=== PATIENT | male | born 1955 | race Caucasian/White ===

== ENCOUNTER 2023-03-21 09:33 | Outpatient (REF) | payer OTHER, SELFPAY ==
[2023-03-21 11:25] LABS: MANUAL DIFF FLAG NO
[2023-03-21 11:45] LABS: Basophils Absolute Auto 0.1 X10*3/uL (0.0-0.2); Basophils Percent Auto 0.7 % (0-2); Eosinophils Absolute Auto 0.4 X10*3/uL (0.0-0.4); Hematocrit 40.7 % (42.0-52.0); Hemoglobin 13.1 g/dl (14.0-18.0); Imm Gran Abs Auto 0.04 X10*3/uL (0.00-0.03); Imm Gran Pct Auto 0.4 % (0.0-0.4); Lymphocytes Absolute Auto 1.9 X10*3/uL (1.2-4.9); Lymphocytes Percent Auto 21.3 % (20-40); Mean Corpuscular HGB Conc 32.2 g/dl (31.0-36.0); Mean Corpuscular Hemoglobin 31.5 pg (27.0-33.0); Mean Corpuscular Volume 97.8 fL (80.0-98.0); Mean Platelet Volume 9.9 fL (9.4-12.4); Monocytes Absolute Auto 0.8 X10*3/uL (0.1-1.2); Monocytes Percent Auto 9.2 % (2-11); Neutrophils Absolute Auto 5.8 x10*3/uL (2.0-8.3); Neutrophils Percent Auto 64.4 % (45-73); Platelet Count 198 X10*3/uL (160-400); Red Blood Count 4.16 X10*6/uL (4.60-5.80); Red Cell Distribution Width 13.6 % (11.0-16.0)
[2023-03-21 12:10] LABS: Alanine Aminotransferase 18 U/L (0-40); Alkaline Phosphatase 87 U/L (39-117); Aspartate Amino Transferase 21 U/L (5-37); Bilirubin Total 0.7 mg/dL (0.0-1.0); Blood Urea Nitrogen 36 mg/dL (9-16); Calcium 9.5 mg/dL (8.4-10.2); Chloride 105 mmol/L (96-108); Cholesterol 144 mg/dL; Estimated Glomerular Filt Rate 24; Glucose Fasting 93 mg/dL (60-99); HDL Cholesterol 26 mg/dL; LDL Cholesterol Calculated 61 mg/dl; Potassium 4.2 mmol/L (3.3-5.1); Sodium 138 mmol/L (135-145); Total Protein 7.1 g/dL (6.5-8.0); Triglycerides 288 mg/dL
[2023-03-21 12:21] LABS: TSH reflex Free T4 1.76 uIU/mL (0.32-4.0)
[2023-03-21 12:23] LABS: Appearance Urine Clear; Color Urine Yellow; Glucose Urine UA Negative (Negative); Leukocyte Esterase Urine Negative (Negative); Nitrite Urine Negative (Negative); PH 5.5 (5.0-9.0); UMIC TRIGGER UACC YES; Urine Blood Negative (Negative); Urine Ketones Negative (Negative); Urine Protein 100 (2+) mg/dL (Neg-Trace)
[2023-03-21 12:26] LABS: Bacteria Urine None Seen (None Seen); Hyaline Casts Urine 0-2 /LPF (0-2); RBC Urine 0-2 /HPF (0-2); Squamous Epithelial Cell Urine 0-2 /HPF (0-2); WBC Urine 0-5 /HPF (0-5)
[2023-03-21 13:00] LABS: Creatinine Urine 29.82 mg/dL; Microalbum/Creatinine Ratio Ur 1579.4 ug/mg cr
[2023-03-21 19:21] LABS: Carbon Dioxide 19 mmol/L (22-29)
[2023-03-28 17:38] LABS: PSA, Ultra Sensitive 0.45 ng/mL
== END 2023-03-21 09:34 | disposition home or self-care (01) ==
LOC: HO.WFDLDS 09:33
PROVIDERS: Visit Provider Nurse Practitioner Family
DX: Z12.5 Encounter for screening for malignant neoplasm of prostate (principal); C43.9 Malignant melanoma of skin, unspecified; I12.9 Hypertensive chronic kidney disease with stage 1 through stage 4 chronic kidney disease, or unspecified chronic kidney disease; E11.22 Type 2 diabetes mellitus with diabetic chronic kidney disease; N18.4 Chronic kidney disease, stage 4 (severe); E11.40 Type 2 diabetes mellitus with diabetic neuropathy, unspecified; E78.00 Pure hypercholesterolemia, unspecified; G89.29 Other chronic pain; K46.9 Unspecified abdominal hernia without obstruction or gangrene; M54.50 Low back pain, unspecified
CPT/HCPCS: 36415; 80053; 80061; 81001; 82043; 84153; 84443; 85025

== ENCOUNTER 2023-03-27 14:28 | Outpatient (AMB) | payer OTHER, SELFPAY ==
[2023-03-27 14:38] VITALS: BP 144/76; PULSE 72; RESP 12; TEMP 36.6; O2SAT 98; BMI 34.9
--- NOTE | 2023-03-27 14:38 | A.OFFPC_ITS ---
Vital Signs 03/27/23 14:38 03/27/23 15:26 Height 6 ft 2 in Weight 272 lb BMI 34.9 BP 144/76 H 140/70 H Blood Pressure Location Lt brachial Lt brachial Position Sitting Sitting Respiration 12 Pulse 72 Pulse Source Pulse Oximeter Temp 97.8 F Temp Source Temporal Artery Scan Pulse Oximetry (%) 98 Oxygen Delivery Method Room Air Intake Visit Reasons: 1 mos chronic conditions Intake Note: Patient woul like to go over labs. 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: No Was dental information given to patient?: Patient has dentist HPI HPI Comments History of Present Illness Details 68 y/o male presents for chronic medical condition follow up. He notes that he has been taking his medications as prescribed. He reports chronic low back and bilat foot pain. He also reports an abrasion to his left zaman from inadvertently striking the area on a rail 3 days ago. He notes that he that he was seen by Cardiology 2 weeks ago and has appointments scheduled for next month with nephrology, ophthalmology, and ophthalmology. He has not been contacted by endocrinology. [facility] Medical History Arthritis Back disorder Chronic kidney disease, stage 3 Congestive heart disease Diabetes Edema Hernia High blood pressure High cholesterol Melanoma Sinusitis Surgical History H/O heart bypass surgery H/O vasectomy History of ankle surgery History of back surgery Hx of appendectomy Family History Father High blood pressure Cardiovascular disease Paternal Grandfather Cardiovascular disease Social History Housing: Apartment Patient Tobacco Use Status: Never used Tobacco e-Cigarette/Vaping Use: Never Used service: No Current occupational status: retired Cognitive needs: No Hearing needs: No Vision needs: Yes Questionnaire Thrive Questionnaire Date Thrive assessed: 02/21/23 MENDOZA-7 AMB Questionnaire MENDOZA-7 Date MENDOZA - 7 assessed: 02/21/23 Source: Developed by Drs. Francisco J Berkowitz, Jeniffer Chen, Bryan Sofia and colleagues, with an educational dayo from [employer]. Review of Systems Const Details: Const Denies chills, Denies fatigue, Denies fever(s), Denies headache(s) and Denies weakness ENT Denies dizziness and Denies headache(s) Card Denies chest pain, Denies lightheadedness, Denies dyspnea and Denies other (Palpitations) Resp Denies cough, Denies dyspnea, Denies wheezing and Denies other ( shortness of breath) GI Denies abdominal pain, Denies melena, Denies hematochezia, Denies change in bowel habits, Denies dyspepsia and Denies nausea Denies hematuria and Denies dysuria Musc Reports back and bilat foot pain, Denies abnormal gait, Denies numbness and Denies tingling Skin/Breast Reports abrasion to left zaman, Denies rash, Denies unusual bruising Neuro Denies abnormal gait, Denies dizziness, Denies headache(s), Denies memory loss, Denies numbness, Denies Sensory deficit (Neuro), Denies tingling and Denies weakness Psych Denies anxiety and Denies depression Endo Denies fatigue Aller/Immun Denies wheezing Physical exam (Primary Care) Vital Signs: Last Vital Signs Temp 97.8 F 03/27/23 14:38 Pulse 72 03/27/23 14:38 Resp 12 03/27/23 14:38 BP 140/70 H 03/27/23 15:26 Pulse Ox 98 03/27/23 14:38 Oxygen Delivery Method Room Air 03/27/23 14:38 BMI result Body Mass Index 34.9 Tobacco/Smoking Status: Tobacco use Status Tobacco use date assessed 02/21/23 03/27/23 14:49 Patient Tobacco Use Status Never used Tobacco 03/27/23 14:49 Tobacco use type 03/27/23 14:49 e-Cigarette/Vaping Use Never Used 03/27/23 14:49 Thrive Assessment: Date of Thrive Assessment Date Thrive assessed 02/21/23 03/27/23 14:49 Const Other: General: no acute distress and well developed Nutritional Appearance: well nourished Orientation/consciousness: patient oriented x3 HENAR Head: Yes normocephalic and Yes atraumatic Eyes General: appearance normal, both eyes and all related structures Pupils: Equal, round and reactive pupils present EOM: EOMs intact bilaterally Resp Effort & Inspection: normal respiratory effort Auscultation: clear to auscultation bilaterally Cardio Rate: regular rate Rhythm: regular rhythm Heart sounds: S1 normal heart sound present, S2 normal heart sound present, no gallops, murmurs presents, and no rubs GI Palpation (GI): No Abdominal aortic bruit present, Soft to palpation, nontender, No hepatosplenomegaly present and No Rebound tenderness present Auscultation: normal bowel sounds General: Yes no CVA tenderness Back/Spine/Pelvis Back: no CVA tenderness Cervical Spine: cervical ROM normal and No Cervical spine tenderness Thoracic/Lumbar Spine: thoraco-lumbar ROM normal, No pain with thoraco-lumbar ROM, No thoracic spinal tenderness and No lumbar spinal tenderness Extrem General: Yes normal to inspection, No edema and No calf tenderness Skin General: warm and dry. Normal skin color. Normal skin turgor Lesions: no lesions Rashes: no rashes Trauma: no lacerations or abrasions Wounds: Small abrasion to left zaman, bed is pink, no edema or overt infection Nails: normal Neuro General: patient oriented x3, gait normal and no focal neuro deficit Cranial nerves: Yes Equal, round and reactive pupils present Cognition (Neuro): normal cognition Gait exam (Neuro): Normal gait present Sensory Exam: No Sensory deficit (Neuro) Psych Affect: normal affect Assessment and Plan Assessment & Plan (1) High blood pressure: Code(s): I10 - Essential (primary) hypertension Plan: His blood pressure is elevated, resting blood pressure is 140/70, slightly above goal of less than 130/80 Carvedilol increased to 25 mg twice a day. Take as prescribed Continue to take clonidine, hydralazine, and torsemide as prescribed Low-sodium diet encouraged Continue follow-up with cardiology as planned Follow-up in 1 month or return sooner with symptoms or concerns Verbalized understanding and agreed with treatment plan. (2) High cholesterol: Code(s): E78.00 - Pure hypercholesterolemia, unspecified Plan: Recent lab results reviewed with the patient Triglycerides and total cholesterol are elevated, LDL is normal, HDL is low Rosuvastatin and Vascepa as prescribed Advised to limits foods high in saturated fat and avoid foods high in trans fat Continue follow-up with Cardiology as planned He has a current referral to endocrinology Verbalized understanding and agreed with treatment plan. (3) Type 2 diabetes mellitus with diabetic neuropathy: Code(s): E11.40 - Type 2 diabetes mellitus with diabetic neuropathy, unspecified Plan: His current A1c is 6.6%, within goal of less than 7.0% Microalbumin/creatinine ratio is 1579.4 Continue with current diabetes treatment regimen He has a current for all to endocrinology Follow-up with symptoms or concerns Verbalized understanding and agreed with treatment plan. (4) Chronic low back pain: Code(s): M54.50 - Low back pain, unspecified; G89.29 - Other chronic pain Plan: He reports chronic low back and bilat foot pain Continue with current treatment regimen Follow-up with worsening or new symptoms Verbalized understanding and agreed with treatment plan. (5) Bilateral foot pain: Code(s): M79.671 - Pain in right foot; M79.672 - Pain in left foot Plan: As above (6) Stage 3b chronic kidney disease (CKD): Code(s): N18.32 - Chronic kidney disease, stage 3b Plan: Recent lab results reviewed with the patient Elevated BUN and creatinine Microalbumin/creatinine ratio is also elevated He has an appointment with Nephrology next month. Encouraged to follow-up as planned Return with symptoms or concerns Verbalized understanding and agreed with the plan. Medications: New carvedilol must administer with a meal/food 25 mg PO BID 30 days 60 tabs 3RF Coding Level of Care Code Est Pt Level 4 (56164) Diagnoses High blood pressure I10 High cholesterol E78.00 Type 2 diabetes mellitus with diabetic neuropathy E11.40 Chronic low back pain M54.50; G89.29 Bilateral foot pain M79.671; M79.672 Stage 3b chronic kidney disease (CKD) N18.32 Time Spent (min) 35
[2023-03-27 15:26] VITALS: BP 140/70
== END 2023-03-27 15:42 | disposition home or self-care (01) ==
PROVIDERS: PCP Nurse Practitioner Family; Visit Provider Nurse Practitioner Family
DX: I12.9 Hypertensive chronic kidney disease with stage 1 through stage 4 chronic kidney disease, or unspecified chronic kidney disease (principal); E11.40 Type 2 diabetes mellitus with diabetic neuropathy, unspecified; N18.32 Chronic kidney disease, stage 3b; E78.00 Pure hypercholesterolemia, unspecified; M54.50 Low back pain, unspecified; G89.29 Other chronic pain; M79.671 Pain in right foot; M79.672 Pain in left foot
CPT/HCPCS: 99214

== ENCOUNTER 2023-05-31 08:43 | Outpatient (REF) | payer OTHER, SELFPAY ==
[2023-05-31 11:49] LABS: Appearance Urine Clear; Color Urine Yellow; Glucose Urine UA Negative (Negative); Leukocyte Esterase Urine Negative (Negative); Nitrite Urine Negative (Negative); UMIC TRIGGER UACC YES; Urine Blood Negative (Negative); Urine Ketones Negative (Negative); Urine Protein 100 (2+) mg/dL (Neg-Trace)
[2023-05-31 11:50] LABS: Bacteria Urine None Seen (None Seen); Hyaline Casts Urine 0-2 /LPF (0-2); RBC Urine 0-2 /HPF (0-2); Squamous Epithelial Cell Urine 0-2 /HPF (0-2); WBC Urine 0-5 /HPF (0-5)
[2023-05-31 12:24] LABS: Creatinine Urine 28.28 mg/dL; Total Protein Urine Random 48 mg/dL (<12)
[2023-05-31 15:01] LABS: Anion Gap 18 (12-20); Blood Urea Nitrogen 68 mg/dL (9-16); Calcium 9.1 mg/dL (8.4-10.2); Carbon Dioxide 23 mmol/L (22-29); Chloride 104 mmol/L (96-108); Estimated Glomerular Filt Rate 19; Potassium 4.9 mmol/L (3.3-5.1); Sodium 140 mmol/L (135-145)
[2023-05-31 15:15] LABS: Vitamin D 25-OH Total 25.5 ng/mL (>30)
[2023-06-01 16:58] LABS: Calcium (PTHI) 8.9 mg/dL (8.6-10.3); PTHI 139 pg/mL (16-77)
[2023-06-04 12:14] LABS: Prot Elec - Albumin 4.2 g/dL (3.8-4.8); Prot Elec - Alpha1 0.3 g/dL (0.2-0.3); Prot Elec - Alpha2 0.8 g/dL (0.5-0.9); Prot Elec - Beta 1 0.4 g/dL (0.4-0.6); Prot Elec - Beta 2 0.3 g/dL (0.2-0.5)
== END 2023-05-31 08:44 | disposition home or self-care (01) ==
LOC: HO.LNP 08:43
PROVIDERS: Internal Medicine Nephrology; Visit Provider Nurse Practitioner Family
DX: Z13.89 Encounter for screening for other disorder (principal)
CPT/HCPCS: 36415; 80051; 81001; 82306; 82310; 82565; 82570; 83970; 84156; 84165; 84520

== ENCOUNTER 2023-06-08 14:05 | Outpatient (AMB) | payer OTHER, SELFPAY ==
[2023-06-08 14:20] VITALS: BP 130/60; PULSE 77; RESP 13; TEMP 36.4; O2SAT 99; BMI 35.2
--- NOTE | 2023-06-08 14:20 | MHC.PC.OV ---
Vital Signs 06/08/23 14:20 Height 6 ft 2 in Weight 274 lb BMI 35.2 BP 130/60 Blood Pressure Location Rt brachial Position Sitting Respiration 13 Pulse 77 Pulse Source Pulse Oximeter Temp 97.6 F Temp Source Temporal Artery Scan Pulse Oximetry (%) 99 Oxygen Delivery Method Room Air Intake Visit Reasons: f/u HTN Intake Note: Patient states that hes been feeling real tired. Patient states that hes allso been losing his balance more frequently. Commercial Attache Required: No Accompanied by: Self / Same As Patient Allergies Sulfa (Sulfonamide Antibiotics) Allergy (Intermediate, Verified 06/08/23 14:44) Swelling Latex, Natural Rubber Allergy (Mild, Verified 06/08/23 14:44) Redness of Skin grapefruit Adverse Reaction (Unknown, Uncoded 06/08/23 14:44) Unknown Medication List - Last Reconciled 06/08/23 by Tramaine Calzada CNP aspirin (Adult Low Dose Aspirin) 81 mg PO DAILY carvedilol 25 mg PO BID 30 days clonidine HCl 0.05 mg PO BID gabapentin 300 mg PO TID PRN hydralazine 100 mg PO TID icosapent ethyl (Vascepa) 2 grams PO BID insulin glargine (Lantus Solostar U-100 Insulin) 45 units subcut BID insulin lispro 1 sliding scale dose subcut USEASDIRECTD prednisone 20 mg PO DAILY PRN ranolazine ER 500 mg PO BID 30 days rosuvastatin (Crestor) 40 mg PO DAILY 30 days torsemide 20 mg PO DAILY 30 days Tobacco use date assessed: 02/21/23 Fall risk assessment: 2 + Falls in past year Last assessed Fall Risk: 06/08/23 Dental Screening Dental Screen Date: 06/08/23 Did you have a dental visit in the last 12 months?: Yes Did you have a dental problem in the last 6 months where you did not have access to dental care?: No Was dental information given to patient?: Patient has dentist HPI HPI Comments History of Present Illness Details 68-year-old male presents for hypertension follow-up. He was last seen at the office on 03/27/2023. He was advised to follow-up in 1 month. He states that he monitor his BP at home twice daily with readings between 125-130/60-70. He reports increasing fatigue for the past 2 weeks. He reports intermittent twitching and cramps to his RLE for the past 2 weeks. He notes that he has history of LLE twitching and cramping that responded well to cyclobenzaprine. He notes that he established with Cardiology in April. He also established with Dermatology in April and, no diagnosis of skin cancer, and has a follow-up appointment in 6 months. He has an appointment to establish with Ophthalmology in October 2023. He was referred to [facility] specialist, however, he states he does not recall the practice of the specialists he currently sees. He states that he has not established with Podiatry. [facility] endocrinology could not admit the patient because his A1c was below 8.6%. [facility] Medical History Chronic kidney disease, stage 3 Edema Back disorder Arthritis Diabetes Congestive heart disease High cholesterol High blood pressure Sinusitis Melanoma Hernia Surgical History History of ankle surgery H/O vasectomy History of back surgery Hx of appendectomy H/O heart bypass surgery Family History (Updated 06/08/23 @ 14:28 by Radha Gonsalves MA) Father High blood pressure Cardiovascular disease Paternal Grandfather Cardiovascular disease Social History Housing: Apartment Patient Tobacco Use Status: Never used Tobacco e-Cigarette/Vaping Use: Never Used service: No Current occupational status: retired Cognitive needs: No Hearing needs: No Vision needs: Yes Questionnaire Thrive Questionnaire Date Thrive assessed: 02/21/23 MENDOZA-7 AMB Questionnaire MENDOZA-7 Date MENDOZA - 7 assessed: 02/21/23 Source: Developed by Drs. Francisco J Berkowitz, Jeniffer Chen, Bryan Sofia and colleagues, with an educational dayo from [employer]. Review of Systems Const Details: Const Denies chills, Reports fatigue, Denies fever(s), Denies headache(s) and Denies weakness ENT Denies dizziness and Denies headache(s) Card Denies chest pain, Denies lightheadedness, Denies dyspnea and Denies other (Palpitations) Resp Denies cough, Denies dyspnea, Denies wheezing and Denies other ( shortness of breath) GI Denies abdominal pain, Denies melena, Denies hematochezia, Denies change in bowel habits, Denies dyspepsia and Denies nausea Denies hematuria and Denies dysuria Musc Denies abnormal gait, Denies myalgias, Denies arthralgias, Denies numbness and Denies tingling Skin/Breast Denies rash, Denies unusual bruising and Denies wounds Neuro Denies abnormal gait, Denies dizziness, Denies headache(s), Denies memory loss, Denies numbness, Denies Sensory deficit (Neuro), Denies tingling and Denies weakness Psych Denies anxiety, Denies depression, Denies memory loss Endo Denies cold intolerance, Reports fatigue, Denies heat intolerance, Denies polydipsia and Denies polyuria Aller/Immun Denies wheezing Physical exam (Primary Care) Vital Signs: Last Vital Signs Temp 97.6 F 06/08/23 14:20 Pulse 77 06/08/23 14:20 Resp 13 06/08/23 14:20 BP 130/60 06/08/23 14:20 Pulse Ox 99 06/08/23 14:20 Oxygen Delivery Method Room Air 06/08/23 14:20 BMI result Body Mass Index 35.2 Tobacco/Smoking Status: Tobacco use Status Tobacco use date assessed 02/21/23 06/08/23 14:28 Patient Tobacco Use Status Never used Tobacco 06/08/23 14:28 Tobacco use type 03/27/23 15:41 e-Cigarette/Vaping Use Never Used 06/08/23 14:28 Thrive Assessment: Date of Thrive Assessment Date Thrive assessed 02/21/23 06/08/23 14:28 Const Other: General: no acute distress and well developed Nutritional Appearance: well nourished Orientation/consciousness: patient oriented x3 HENMT Head: Yes normocephalic and Yes atraumatic Eyes General: appearance normal, both eyes and all related structures Pupils: Equal, round and reactive pupils present EOM: EOMs intact bilaterally Resp Effort & Inspection: normal respiratory effort Auscultation: clear to auscultation bilaterally Cardio Rate: regular rate Rhythm: regular rhythm Heart sounds: S1 normal heart sound present, S2 normal heart sound present, no gallops, murmurs and no rubs GI Palpation (GI): No Abdominal aortic bruit present, Soft to palpation, nontender, No hepatosplenomegaly present and No Rebound tenderness present Auscultation: normal bowel sounds General: Yes no CVA tenderness Back/Spine/Pelvis Back: no CVA tenderness Cervical Spine: cervical ROM normal and No Cervical spine tenderness Thoracic/Lumbar Spine: thoraco-lumbar ROM normal, No pain with thoraco-lumbar ROM, No thoracic spinal tenderness and No lumbar spinal tenderness Extrem General: Yes normal to inspection, No edema and No calf tenderness Skin General: warm and dry. Normal skin color. Normal skin turgor Neuro General: patient oriented x3, gait normal and no focal neuro deficit Cranial nerves: Yes Equal, round and reactive pupils present Cognition (Neuro): normal cognition Gait exam (Neuro): Normal gait present Sensory Exam: No Sensory deficit (Neuro) Psych Appearance: grossly normal Affect: normal affect Attitude: cooperative Thought process: Normal thought process present Assessment and Plan Assessment & Plan (1) Fatigue: Code(s): R53.83 - Other fatigue Qualifiers: Fatigue type: other Qualified Code(s): R53.83 - Other fatigue Plan: Reports increasing fatigue for the past 2 week He had blood work done in March and May. RBC and H&H were slightly low, TSH was normal. Vitamin-D level was slightly low, 25.5 PTH was elevated, 139, calcium level was normal. His fatigue is likely due to vitamin-D deficient she or elevated PTH level. Anemia is also possible Will check CBC, BMP, TSH, and vitamin-D level. Will repeat PTH level Vitamin-D 3 ordered. Take as prescribed Adequate hydration encouraged Referred to endocrinology for elevated PTH level Follow-up in 1 month for hypertension and diabetes Return with worsening or new symptoms Verbalized understanding and agreed with treatment plan. (2) Muscle cramps: Code(s): R25.2 - Cramp and spasm Plan: Reports intermittent twitching and cramps to his RLE for the past 2 weeks. He notes that he has history of LLE twitching and cramping. Likely due to elevated PTH level. Dehydration is also possible Will recheck PTH and check CBC and BMP Adequate hydration encouraged Follow-up with worsening or new symptoms Verbalized understanding and agreed with treatment plan. (3) Muscle twitching: Code(s): R25.3 - Fasciculation Plan: As above (4) Elevated PTHrP level: Code(s): R79.89 - Other specified abnormal findings of blood chemistry Plan: As above (5) High blood pressure: Code(s): I10 - Essential (primary) hypertension Plan: Blood pressure is 130/60, slightly above goal of less than 130/80 Continue with current treatment regimen Low-sodium diet encouraged Continue to check blood pressure daily, reports readings persistently above 130/80 Follow-up in 1 month or return sooner with symptoms or concerns Verbalized understanding and agreed with treatment plan Orders: Orders TSH reflex Free T4 06/08/23 R25.2 - Cramp and spasm, R25.3 - Fasciculation, R53.83 - Other fatigue Vitamin D 25-OH Total 06/08/23 R25.2 - Cramp and spasm, R25.3 - Fasciculation, R53.83 - Other fatigue Complete Blood Count Auto Diff 06/08/23 R25.2 - Cramp and spasm, R25.3 - Fasciculation, R53.83 - Other fatigue Basic Metabolic Panel 06/08/23 R25.2 - Cramp and spasm, R25.3 - Fasciculation, R53.83 - Other fatigue PTHI 06/08/23 R25.2 - Cramp and spasm, R25.3 - Fasciculation, R53.83 - Other fatigue Referrals Endocrinology Referral R79.89 - Other specified abnormal findings of blood chemistry Medications: New cholecalciferol (vitamin D3) 25 mcg PO DAILY 90 days 90 tabs 4RF Coding Level of Care Code Est Pt Level 4 (64141) Diagnoses Other fatigue R53.83 Fatigue type: other Muscle cramps R25.2 Muscle twitching R25.3 Elevated PTHrP level R79.89 High blood pressure I10
== END 2023-06-08 15:37 | disposition home or self-care (01) ==
PROVIDERS: PCP Nurse Practitioner Family; Visit Provider Nurse Practitioner Family
DX: R53.83 Other fatigue (principal); R25.2 Cramp and spasm; R25.3 Fasciculation; R79.89 Other specified abnormal findings of blood chemistry; I10 Essential (primary) hypertension
CPT/HCPCS: 99214

== ENCOUNTER 2023-06-26 08:54 | Outpatient (REF) | payer OTHER, SELFPAY ==
[2023-06-26 11:13] LABS: MANUAL DIFF FLAG NO
[2023-06-26 11:32] LABS: Basophils Absolute Auto 0.1 X10*3/uL (0.0-0.2); Basophils Percent Auto 0.5 % (0-2); Eosinophils Absolute Auto 0.3 X10*3/uL (0.0-0.4); Eosinophils Percent Auto 2.9 % (0-4); Hematocrit 41.5 % (42.0-52.0); Hemoglobin 13.4 g/dl (14.0-18.0); Imm Gran Abs Auto 0.05 X10*3/uL (0.00-0.03); Imm Gran Pct Auto 0.5 % (0.0-0.4); Lymphocytes Percent Auto 21.7 % (20-40); Mean Corpuscular HGB Conc 32.3 g/dl (31.0-36.0); Mean Corpuscular Hemoglobin 31.3 pg (27.0-33.0); Mean Platelet Volume 9.2 fL (9.4-12.4); Monocytes Absolute Auto 0.9 X10*3/uL (0.1-1.2); Monocytes Percent Auto 9.5 % (2-11); Neutrophils Percent Auto 64.9 % (45-73); Platelet Count 198 X10*3/uL (160-400); Red Blood Count 4.28 X10*6/uL (4.60-5.80); Red Cell Distribution Width 14.6 % (11.0-16.0); White Blood Count 9.2 X10*3/uL (4.8-10.8)
[2023-06-26 11:45] LABS: Anion Gap 15 (12-20); Blood Urea Nitrogen 51 mg/dL (9-16); Calcium 9.7 mg/dL (8.4-10.2); Carbon Dioxide 27 mmol/L (22-29); Chloride 102 mmol/L (96-108); Estimated Glomerular Filt Rate 19; Glucose Random 76 mg/dL (60-115); Potassium 4.3 mmol/L (3.3-5.1); Sodium 140 mmol/L (135-145)
[2023-06-26 12:12] LABS: TSH reflex Free T4 1.81 uIU/mL (0.32-4.0); Vitamin D 25-OH Total 27.4 ng/mL (>30)
[2023-06-27 16:34] LABS: Calcium (PTHI) 9.4 mg/dL (8.6-10.3); PTHI 122 pg/mL (16-77)
== END 2023-06-26 08:55 | disposition home or self-care (01) ==
LOC: HO.WFDLDS 08:54
PROVIDERS: Visit Provider Nurse Practitioner Family
DX: R25.3 Fasciculation (principal); R25.2 Cramp and spasm; R53.83 Other fatigue; E55.9 Vitamin D deficiency, unspecified; Z79.899 Other long term (current) drug therapy
CPT/HCPCS: 36415; 80048; 82306; 83970; 84443; 85025

== ENCOUNTER 2023-07-13 12:37 | Outpatient (AMB) | payer OTHER, SELFPAY ==
--- NOTE | 2023-07-13 12:41 | A.OFFPC_ITS ---
Vital Signs 07/13/23 12:44 Height 6 ft 2 in Weight 274 lb BMI 35.2 BP 122/62 Blood Pressure Location Lt brachial Position Sitting Pulse 72 Pulse Source Pulse Oximeter Pulse Oximetry (%) 97 Oxygen Delivery Method Room Air Intake Visit Reasons: 1 month DM, HTN Intake Note: Patient is here for 1 month follow up on diabetes, and hypertension. Allergies Sulfa (Sulfonamide Antibiotics) Allergy (Intermediate, Verified 07/13/23 13:10) Swelling Latex, Natural Rubber Allergy (Mild, Verified 07/13/23 13:10) Redness of Skin grapefruit Adverse Reaction (Unknown, Uncoded 07/13/23 13:10) Unknown Medication List - Last Reconciled 07/13/23 by Tramaine Calzada CNP aspirin (Adult Low Dose Aspirin) 81 mg PO DAILY carvedilol 25 mg PO BID 30 days cholecalciferol (vitamin D3) 25 mcg PO DAILY 90 days clonidine patches transdermal gabapentin 300 mg PO TID PRN hydralazine 100 mg PO TID 30 days icosapent ethyl (Vascepa) 2 grams PO BID insulin glargine (Lantus Solostar U-100 Insulin) 50 units subcut BID insulin lispro 1 sliding scale dose subcut USEASDIRECTD ranolazine ER 500 mg PO BID 30 days rosuvastatin (Crestor) 40 mg PO DAILY 30 days torsemide 20 mg PO DAILY 30 days Tobacco use date assessed: 02/21/23 HPI HPI Comments History of Present Illness Details 68-year-old male presents for diabetes a nd hypertension follow-up. He admits to taking his medications as prescribed. He notes that he has been using a dexacom CGM since February. 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 He states that he was supposed to start using the device before he relocated to [facility]. However, it was initially shipped to the wrong address. Review of CGM revealed average glucose of 134 within the past 1 month. Current A1c 6.5%. He reports occasional hypoglycemic episodes. He states that he has been self-adjusting Lispro per carb count, lowest doses 8 units. He reports significant improvement with PT for his back pain. He offers no complaints and denies acutes symptoms. He was last evaluated by Cardiology at the end of June. The plan is to try an SGLT2 inhibitors once labs are received. Advised to follow-up with PCP and Endocrinology. He has a follow-up appointment with Cardiology in 3 months. He is followed by Dr. Keene, nephrology. He has a follow-up appointment at the end of this month. [facility] Medical History Chronic kidney disease, stage 3 Edema Back disorder Arthritis Diabetes Congestive heart disease High cholesterol High blood pressure Sinusitis Melanoma Hernia Surgical History History of ankle surgery H/O vasectomy History of back surgery Hx of appendectomy H/O heart bypass surgery Family History (Updated 06/08/23 @ 14:28 by Radha Gonsalves MA) Father High blood pressure Cardiovascular disease Paternal Grandfather Cardiovascular disease Social History Housing: Apartment Patient Tobacco Use Status: Never used Tobacco e-Cigarette/Vaping Use: Never Used service: No Current occupational status: retired Cognitive needs: No Hearing needs: No Vision needs: Yes Questionnaire Thrive Questionnaire Date Thrive assessed: 02/21/23 MENDOZA-7 AMB Questionnaire MENDOZA-7 Date MENDOZA - 7 assessed: 02/21/23 Source: Developed by Drs. Francisco J Berkowitz, Jeniffer Chen, Bryan Sofia and colleagues, with an educational dayo from [employer]. Review of Systems Const Details: Const Denies chills, Denies fatigue, Denies fever(s), Denies headache(s) and Denies weakness ENT Denies dizziness and Denies headache(s) Card Denies chest pain, Denies lightheadedness, Denies dyspnea and Denies other (Palpitations) Resp Denies cough, Denies dyspnea, Denies wheezing and Denies other ( shortness of breath) GI Denies abdominal pain, Denies melena, Denies hematochezia, Denies change in bowel habits, Denies dyspepsia and Denies nausea Denies hematuria and Denies dysuria Musc Denies abnormal gait, Denies myalgias, Denies arthralgias, Denies numbness and Denies tingling Skin/Breast Denies rash, Denies unusual bruising and Denies wounds Neuro Denies abnormal gait, Denies dizziness, Denies headache(s), Denies memory loss, Denies numbness, Denies Sensory deficit (Neuro), Denies tingling and Denies weakness Psych Denies anxiety, Denies depression, Denies memory loss Endo Denies cold intolerance, Denies fatigue, Denies heat intolerance, Denies polydipsia and Denies polyuria Aller/Immun Denies wheezing Physical exam (Primary Care) Vital Signs: Last Vital Signs Pulse 72 07/13/23 12:44 BP 122/62 07/13/23 12:44 Pulse Ox 97 07/13/23 12:44 Oxygen Delivery Method Room Air 07/13/23 12:44 BMI result Body Mass Index 35.2 Tobacco/Smoking Status: Tobacco use Status Tobacco use date assessed 02/21/23 07/13/23 12:44 Patient Tobacco Use Status Never used Tobacco 07/13/23 12:44 Tobacco use type 03/27/23 15:41 e-Cigarette/Vaping Use Never Used 07/13/23 12:44 Thrive Assessment: Date of Thrive Assessment Date Thrive assessed 02/21/23 07/13/23 12:44 Const Other: General: no acute distress and well developed Nutritional Appearance: well nourished Orientation/consciousness: patient oriented x3 HENMT Head: Yes normocephalic and Yes atraumatic Eyes General: appearance normal, both eyes and all related structures Pupils: Equal, round and reactive pupils present EOM: EOMs intact bilaterally Resp Effort & Inspection: normal respiratory effort Auscultation: clear to auscultation bilaterally Cardio Rate: regular rate Rhythm: regular rhythm Heart sounds: S1 normal heart sound present, S2 normal heart sound present, no gallops, no murmurs and no rubs GI Palpation (GI): No Abdominal aortic bruit present, Soft to palpation, nontender, No hepatosplenomegaly present and No Rebound tenderness present Auscultation: normal bowel sounds General: Yes no CVA tenderness Back/Spine/Pelvis Back: no CVA tenderness Cervical Spine: cervical ROM normal and No Cervical spine tenderness Thoracic/Lumbar Spine: thoraco-lumbar ROM normal, No pain with thoraco-lumbar ROM, No thoracic spinal tenderness and No lumbar spinal tenderness Extrem General: Yes normal to inspection, No edema and No calf tenderness Skin General: warm and dry. Normal skin color. Normal skin turgor Lesions: no lesions Rashes: no rashes Trauma: no lacerations or abrasions Wounds: no wounds Nails: normal Neuro General: patient oriented x3, gait normal and no focal neuro deficit Cranial nerves: Yes Equal, round and reactive pupils present Cognition (Neuro): normal cognition Gait exam (Neuro): Normal gait present Sensory Exam: No Sensory deficit (Neuro) Psych Appearance: grossly normal Affect: normal affect Attitude: cooperative Thought process: Normal thought process present Assessment and Plan Assessment & Plan (1) High blood pressure: Code(s): I10 - Essential (primary) hypertension Qualifiers: Hypertension type: primary hypertension Qualified Code(s): I10 - Essential (primary) hypertension Plan: Blood pressure is 122/62, within goal of less than 130/80 Continue with current treatment regimen Low-sodium diet encouraged Will continue to monitor Follow-up in 1 month for a complete physical exam Return sooner with symptoms or concerns Verbalized understanding and agreed with treatment plan. (2) Type 2 diabetes mellitus with diabetic neuropathy: Code(s): E11.40 - Type 2 diabetes mellitus with diabetic neuropathy, unspecified Plan: Review of his Dexacom CGM revealed average blood glucose of 134 and A1c of 6.5% which is within goal of less than 7.0% Continue with current treatment regimen. Advised to administer lispro per sliding scale and avoid self adjusting to prevent hypoglycemia episodes Routine exercise encouraged Recent LDL in February was 61 and microalbumin/creatinine ratio was 1579.4. Will recheck these labs in 3 months He will follow-up for diabetes in 3 months Return with symptoms or concerns Verbalized understanding and agreed with treatment plan. (3) Stage 3b chronic kidney disease (CKD): Code(s): N18.32 - Chronic kidney disease, stage 3b Plan: Recent BUN was 51, creatinine 3.2 to, GFR [address] Keene, nephrology Continue follow-up as planned Verbalized understanding and agreed with the plan (4) Mild anemia: Code(s): D64.9 - Anemia, unspecified Plan: Recent RBC and H&H level is improved from previous, although slightly low Likely due to anemia of chronic disease Will continue to monitor for symptoms and make changes to his care plans needed Verbalized understanding and agreed with treatment plan. (5) Elevated PTHrP level: Code(s): R79.89 - Other specified abnormal findings of blood chemistry Plan: Recent PTH level is improved from previous but still elevated He was referred to [facility] endocrinology and has a appointment in September 2022 Encouraged to follow-up as planned Return with symptoms or concerns Verbalized understanding and agreed with treatment plan. (6) Vitamin D deficiency: Code(s): E55.9 - Vitamin D deficiency, unspecified Plan: He was recently diagnosed with vitamin-D deficiency and started on vitamin D3 supplement His recent vitamin-D level is slightly improved and slightly low below normal Continue to take vitamin D3 as prescribed Will continue to monitor make changes to his care plan as needed Verbalized understanding and agreed with treatment plan. Medications: Changed From insulin lispro sliding scale: 201-250 = 4 units; 251-300 = 6 units; 301-350 = 8 units; 341- 400 = 10 units; > 400 units notify PCP 1 sliding scale dose subcut USEASDIRECTD 15 mL 6RF To insulin lispro sliding scale: 201-250 = 4 units; 251-300 = 6 units; 301-350 = 8 units; 351- 400 = 10 units; > 400 units notify PCP 1 sliding scale dose subcut USEASDIRECTD 15 mL 6RF Coding Level of Care Code Est Pt Level 4 (62943) Diagnoses Primary hypertension I10 Hypertension type: primary hypertension Type 2 diabetes mellitus with diabetic neuropathy E11.40 Stage 3b chronic kidney disease (CKD) N18.32 Mild anemia D64.9 Elevated PTHrP level R79.89 Vitamin D deficiency E55.9
[2023-07-13 12:44] VITALS: BP 122/62; PULSE 72; O2SAT 97; BMI 35.2
== END 2023-07-13 13:36 | disposition home or self-care (01) ==
PROVIDERS: PCP Nurse Practitioner Family; Visit Provider Nurse Practitioner Family
DX: I12.9 Hypertensive chronic kidney disease with stage 1 through stage 4 chronic kidney disease, or unspecified chronic kidney disease (principal); E11.40 Type 2 diabetes mellitus with diabetic neuropathy, unspecified; N18.32 Chronic kidney disease, stage 3b; D64.9 Anemia, unspecified; R79.89 Other specified abnormal findings of blood chemistry; E55.9 Vitamin D deficiency, unspecified
CPT/HCPCS: 99214

== ENCOUNTER 2023-07-17 14:00 | Outpatient (RCR) | payer OTHER, SELFPAY ==
[2023-05-28 12:49] VITALS: BP 148/70; PULSE 66; O2SAT 96
--- NOTE | 2023-05-29 15:31 | MHC.PT.EP ---
[facility] [place] Office [place] Office [place] Office [address] Brittani Vance [address] [phone] F: [phone] F: [phone] F: [phone] F: [phone] Physical Therapy Plan of Care Date of Evaluation: 05/28/23 Date of Surgery: Diagnosis: PT eval and treat, low back pain, unspecified G89.29 Other chronic pain, signed by Tramaine Calzada date of script 02/22/23 Assessment: Pt is a RHD 68 y/o male, referred to PT after establishing new care from his PCP Tramaine Calzada NP, for treatment of low back pain, other unspecified pain date of referral 02/22/23. Pt seen for PT eval on 05/28/23. Pt reports recent relocation from [place] to [place] moving in 11/2022 alone to relocate near his daughter family. Pt in process of establishing care with new PCP. Pt exhibits signs and sx which appear consistent with spinal stenosis (increased trunk flexion poor extension, LE sx). Pt exhibits increased forward trunk lean/ increased R lateral trunk (carrying std cane in R UE) observed grabbling out to counter in hallway for additional support. Pt exhibits, posterior bilateral LE radiating sx from buttocks to knees (L proximal hip sx are worse on L than R) which is impacting his tolerance for ambulating short distances. Pt reports intolerance for L SL and expresses excruciating pain when doing so. Pt reports disturbed sleep secondary to other matters and admits to use of melatonin and allergy medication as methods to aide in his sleep (he states this therapist has advised him not to do this in the past but he continues to do). He reports recently purchasing a mobile scooter to aide in his mobility. Pt verbalizing active depression with transition of moving, and expresses his desire to work but feels physically he is not in good enough shape to hold/complete a job. Pt verbalizes significant health decline since 2019, report prior to was attending the gym and was active. Has not been able to exercise in that capacity for quite some time. When asked his goals of PT, pt states, I want to stand up straight and be able to walk like I did before. 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 Pt expresses past history of multi-level laminectomy completed years ago, states he was told in the past was not a surgical candidate due to poorly managed diabetes. Pt admits to taking prednisone 20mg over the past five days due to the severity of his proximal L lumbar/hip sx (states he has an old prescription from a provider in [place]). Pt was advised by SANDY Calzada while in office this date to stop taking that medication due to risk of kidney/DM impacts. Pt does express reduction in sx since taking this medication stating, Now I can walk, before I couldn't get out of bed. Other PMH significant for R ankle fusion, global deconditioning, history of cardiac surgery, HTN, and kidney disease. Pt may benefit from consult with student education specialist for reevaluation of his current condition possible intervention>as well as orthopedics/pain management for his R>L knee pain. Pt expresses past history of receiving injections in his back with good relief of similar sx. Pt expresses past history of cortisone injection in his R knee but has not had any consultation with orthopedics for treatment of his knees in quite a few years. History of poor mobility in R ankle secondary to R ankle fusion, hx football injuries L>R ankle and shoulders. Pt expresses poor AROM/PROM R shoulder history of trauma, torn RTC with history of MRI in the past (presents with AROM ~70 flexion on R UE this date). Pt reports history of three falls this year, presents to the office with use of std cane but reports has a platform style walker. Pt reports episode this am of having low blood pressure 70/40s and feeling faint earlier this AM. Upon screening in the office this date, pt presents with elevated blood pressure 148/70mmHG, HR 66 bpm, Sp02 96%. Pt expressing history of migraine sx with aura, expresses in the past has seen neurology for this denies having a neurologist locally. Pt denies presence of chest pain, does express ongoing history of neuropathy/pins needles in his bilateral LE with poor sensation in his feet. States he believes he has an upcoming appt with Dr. Carter's office for toenail management and does inquire/express interest in obtaining diabetic shoes (will need script from his PCP for this). Neuro screening completed due to report of feeling faint earlier today, no facial droop, slurred speech, or parathesias reported aside from baseline LE neuropathy. Pt strength overall WFL. Vitals stable. Therapist consulted with pts' PCP Tramaine Calzada NP this date to have him take an assessment/listen to patient's report of incident which he had occur this morning. Tramaine Calzada NP in the office this date to relay history of events/subjective report with patient who advised should he experience recurring sx to go to the ER for further evaluation. Pt appears to be at baseline and was advised not to change any of his medication he is currently taking (had prior adjustments in 03/25). Pt lives alone in a third floor apartment, states he only has elevator access via a full flight of stairs. Pt expressing history of food insecurity, report recent denial of benefit request from [employer] after applying last week. Therapist connected patient with [employer] worker who is employed within the [facility] this date upon completion of PT to address potential benefits which may be available for patient to aide in goal of transitioning to senior/handicap housing and potential food/household resources which may be available. Pt verbalizes he has an active therapist he speaks with every week on Sunday mornings (but expresses he only has two more appts left available through his insurance). Therapist is recommending pt attend PT 2x/week x 4-6 weeks to address impairments of pain, strength, balance, and mobility concerns. PT advised pt to use platform walker at all times and continue to monitor his vitals at home. Pt advised to refrain from use of std cane due to poor static and dynamic balance. 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 Pt will be best served in 1:1 visit for patient needs/complexity. Thank you for this referral. Pt motivated but has multiple complex medical history which may be barriers to recovery. Frequency and Duration: The patient will be seen 2x/week x 4 weeks Short Term Goals: 1. Pt will demonstrate sit<>stand on first attempt. 2. Pt will demonstrate symmetrical sitting (presents with right lateral trunk lean). 3. Pt will demonstrate strength abd to 4/5. 4. Pt will increase HS length to 160 degrees. Detention Goals: 1. I HEP. 2. Pt will demonstrate eccentric control 3:3 trials during functional mobility. 3. Pt will demonstrate good safety insight with use of platform walker to reduce risk of falls and improve dynamic balance. 4. Pt will demonstrate 25% reduction in R knee pain. 5.Pt will demonstrate SLR strength 5/5 bilaterally. 6. Pt will identify self care positional strategies for back/knee/LE pain. 7. Pt will negotiate an 8 inch step with least restrictive AD with good dynamic balance. Treatment Plan: Modalities to reduce pain, spasms and effusion. Manual therapy to restore motion and function. Therapeutic exercise to improve strength and flexibility. Neuromuscular re-education for posture and balance. Therapeutic activities to return to functional activities of daily living. Electronically signed by: Jessica Casas, PT, DPT Please sign and return to therapist. Thank you for your referral.
== END 2023-10-02 13:26 | disposition home or self-care (01) ==
LOC: HO.PTWFD 14:00
PROVIDERS: PCP Nurse Practitioner Family; Visit Provider Nurse Practitioner Family
DX: M54.50 Low back pain, unspecified (principal); G89.29 Other chronic pain
CPT/HCPCS: 36415; 80051; 81001; 82306; 82310; 82565; 82570; 83970; 84156; 84165; 84520; 97110; 97140; 97163; 97535

== ENCOUNTER 2023-09-24 10:20 | Outpatient (AMB) | payer OTHER, SELFPAY ==
[2023-09-24 10:34] VITALS: BP 126/60; PULSE 79; RESP 14; TEMP 36.6; O2SAT 96; BMI 34.8
--- NOTE | 2023-09-24 10:34 | A.OFFPC_ITS ---
Vital Signs 09/24/23 10:34 Height 6 ft 2 in Weight 271 lb BMI 34.8 BP 126/60 Blood Pressure Location Rt brachial Position Sitting Respiration 14 Pulse 79 Pulse Source Pulse Oximeter Temp 97.9 F Temp Source Temporal Artery Scan Pulse Oximetry (%) 96 Oxygen Delivery Method Room Air Intake Visit Reasons: CPE Intake Note: Patient states that he is having alot of pain in right hip & left shoulder due to a slip and fall in snow 2 weeks ago. Patient needs refill on hydralazine, sliding scale insulin, and torsemide. Channel Installer Required: No Accompanied by: Self / Same As Patient Allergies Sulfa (Sulfonamide Antibiotics) Allergy (Intermediate, Verified 09/24/23 11:16) Swelling Latex, Natural Rubber Allergy (Mild, Verified 09/24/23 11:16) Redness of Skin grapefruit Adverse Reaction (Unknown, Uncoded 09/24/23 11:16) Unknown Medication List - Last Reconciled 09/24/23 by Tramaine Calzada CNP aspirin (Adult Low Dose Aspirin) 81 mg PO DAILY carvedilol 25 mg PO BID 30 days cholecalciferol (vitamin D3) 25 mcg PO DAILY 90 days clonidine patches transdermal gabapentin 300 mg PO TID PRN hydralazine 100 mg PO TID 30 days icosapent ethyl (Vascepa) 2 grams PO BID insulin glargine (Lantus Solostar U-100 Insulin) 50 units subcut BID insulin lispro 1 sliding scale dose subcut USEASDIRECTD ranolazine ER 500 mg PO BID 30 days rosuvastatin (Crestor) 40 mg PO DAILY 30 days torsemide 20 mg PO DAILY 30 days Tobacco use date assessed: 09/24/23 Fall risk assessment: 2 + Falls in past year Last assessed Fall Risk: 09/24/23 Dental Screening Dental Screen Date: 09/24/23 Did you have a dental visit in the last 12 months?: Yes Did you have a dental problem in the last 6 months where you did not have access to dental care?: No Was dental information given to patient?: Patient has dentist HPI HPI Comments History of Present Illness Details 68 y/o male presents for an extended phy sical exam He admits to taking his medications as prescribed without adverse reactions He reports right hip pain which started after he slipped on the snow 2 weeks ago and chronic left shoulder and low back pain. He recently completed a course of PT for chronic back and bilateral shoulder pain. He notes he is not on any medication for pain. Tylenol was not effective. Prednisone provides some relief. He rescheduled his first endocrinology appointment with [facility] due to significant pain. His new appointment is in November 2022 He notes that he has not been scheduled for ophthalmology appointment. He states that they the movie shot camera operator he was referred to was not accepting new patients. He notes that his last colonoscopy was in [place] a year ago: normal. He Was advised to f/u in 5 years He is followed by Cardiology, Nephrology, and Dermatology [facility] Medical History Chronic kidney disease, stage 3 Edema Back disorder Arthritis Diabetes Congestive heart disease High cholesterol High blood pressure Sinusitis Melanoma Hernia Surgical History History of ankle surgery H/O vasectomy History of back surgery Hx of appendectomy H/O heart bypass surgery Family History Father High blood pressure Cardiovascular disease Paternal Grandfather Cardiovascular disease Social History Housing: Apartment Patient Tobacco Use Status: Never used Tobacco e-Cigarette/Vaping Use: Never Used service: No Current occupational status: employed 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 1. Little interest or pleasure in doing things: nearly every day 2. Feeling down, depressed, or hopeless: more than half the days 3. Trouble falling or staying asleep, or sleeping too much: nearly every day 4. Feeling tired or having little energy: nearly every day 5. Poor appetite or overeating: not at all 6. Feeling bad about yourself - or that you are a failure or have let yourself or your family down: not at all 7. Trouble concentrating on things, such as reading the newspaper or watching television: not at all 8. Moving or speaking so slowly that other people could have noticed. Or the opposite - being so fidgety or restless that you have been moving around a lot more than usual: not at all 9. Thoughts that you would be better off or of hurting yourself in some way: not at all Total score: 11 Depression Screening Interpretation: Positive Depression Screening Done: Yes 98208 - PHQ-9 Billing: Yes Source: Developed by Drs. Francisco J Berkowitz, Jeniffer Chen, Bryan Sofia and colleagues, with an educational dayo from [employer]. Thrive Questionnaire Date Thrive assessed: 09/24/23 I am a: Patient What is your living situation today?: I have a steady place to live Within the past 12 months, did the food you bought not last and you didn't have the money to get more?: Never true Within the past 12 months, did you worry whether your food would run out before you got money to buy more?: Never true Do you have trouble paying for medicines?: No Do you have trouble getting transportation to medical appointments?: No Do you have trouble paying your heating and electricity bill?: No Do you have trouble taking care of your child, family member or friend?: No Do you have trouble with day-to-day activities such as bathing, preparing meals, shopping, managing finances, etc.?: Yes Are you currently unemployed and looking for a job?: No Are you interested in more education?: No Please select the resources that you would like help with: None Currently or been in a relationship where the following occur: no concerns reported THRIVE Score: 0 AUDIT C Alcohol Use Questionnaire (AUDIT-C) 1. How often do you have a drink containing alcohol?: Monthly or less 2. How many drinks containing alcohol do you have on a typical day when you are drinking?: 3 or 4 3. How often do you have six or more drinks on one occasion?: Never Total Score: 2 MENDOZA-7 AMB Questionnaire MENDOZA-7 Date MENDOZA - 7 assessed: 09/24/23 Feeling nervous, anxious, or on edge: 1 = Several days Not being able to stop or control worryin = Not at all Worrying too much about different things: 0 = Not at all Trouble relaxin = Not at all Being so restless that it is hard to sit still: 0 = Not at all Becoming easily annoyed or irritable: 0 = Not at all Feeling afraid as if something awful might happen: 1 = Several days Total MENDOZA-7 score (0-4 normal; 5-9 mild; 10-14 moderate; 15-21 severe): 2 Source: Developed by Drs. Francisco J Berkowitz, Jeniffer Chen, Bryan Sofia and colleagues, with an educational dayo from [employer]. MENDOZA-7 Assessment Billing MENDOZA-7 Assessment Tool: MENDOZA-7 Assessment 39868 Review of Systems Const Details: Denies chills, Denies fatigue, Denies fever(s), Denies headache(s) and Denies weakness HEENT Denies change in vision, Denies dizziness, Denies headache(s), Denies hearing loss, Denies nasal congestion, Denies sinus pain, Denies sinus pressure and Denies sore throat Card Denies chest pain, Denies lightheadedness, Denies dyspnea and Denies other (palpitations) Resp Denies cough, Denies dyspnea and Denies wheezing GI Denies abdominal pain, Denies melena, Denies hematochezia, Denies change in bowel habits, Denies dyspepsia and Denies nausea Denies hematuria and Denies dysuria Musc Denies abnormal gait, Denies myalgias, Denies arthralgias, Denies numbness and Denies tingling Skin/Breast Denies rash, Denies unusual bruising and Denies wounds Neuro Denies abnormal gait, Denies dizziness, Denies headache(s), Denies memory loss, Denies numbness, Denies Sensory deficit (Neuro), Denies tingling and Denies weakness Psych Denies anxiety, Denies depression and Denies memory loss Endo Denies cold intolerance, Denies fatigue, Denies heat intolerance, Denies po lydipsia and Denies polyuria Marc/Lymph Denies easy bleeding and Denies easy bruising Aller/Immun Denies wheezing Physical exam (Primary Care) Vital Signs: Last Vital Signs Temp 97.9 F 09/24/23 10:34 Pulse 79 09/24/23 10:34 Resp 14 09/24/23 10:34 BP 126/60 09/24/23 10:34 Pulse Ox 96 09/24/23 10:34 Oxygen Delivery Method Room Air 09/24/23 10:34 BMI result Body Mass Index 34.8 Tobacco/Smoking Status: Tobacco use Status Tobacco use date assessed 09/24/23 09/24/23 10:45 Patient Tobacco Use Status Never used Tobacco 09/24/23 10:45 Tobacco use type 03/27/23 15:41 e-Cigarette/Vaping Use Never Used 09/24/23 10:45 PHQ-9: PHQ-9 Score PHQ-9: Total score 11 09/24/23 11:22 Depression Screening Interpretation: Positive Thrive Assessment: Date of Thrive Assessment Date Thrive assessed 09/24/23 09/24/23 10:50 Currently or been in a relationship where the following occur: no concerns reported Const Other: General: no acute distress, well developed, alert and awake Nutritional Appearance: well nourished Orientation/consciousness: patient oriented x3 HENMT Head: Yes normocephalic and Yes atraumatic Ears: hearing grossly normal bilaterally and TM's normal bilaterally General nose exam: Normal external nose present and Normal nares present Mouth: Normal oral and palatal mucosa present and moist mucous membranes Teeth and gingiva: dentition normal Throat: Yes oropharynx normal Eyes Pupils: Equal, round and reactive pupils present and Pupil accommodation reflex normal EOM: EOMs intact bilaterally Neck Neck: Yes normal visual inspection, Yes no lymphadenopathy and Yes trachea midline Thyroid: Thyroid normal Carotids: no bruits Lymphatic: no lymphadenopathy noted Chest Chest palpation & inspection: normal inspection of the chest Resp Effort & Inspection: normal respiratory effort Auscultation: clear to auscultation bilaterally Cardio Rate: regular rate Rhythm: regular rhythm Heart sounds: S1 normal heart sound present, S2 normal heart sound present, no gallops, no murmurs and no rubs Bruits: no abdominal aortic bruits and no carotid bruits GI Palpation (GI): No Abdominal aortic bruit present, Soft to palpation, nontender, No hepatosplenomegaly present and No Rebound tenderness present Auscultation: normal bowel sounds General: Yes no CVA tenderness Back/Spine/Pelvis Back: no CVA tenderness Cervical Spine: cervical ROM normal and No Cervical spine tenderness Thoracic/Lumbar Spine: thoraco-lumbar ROM normal, No pain with thoraco-lumbar ROM, No thoracic spinal tenderness and No lumbar spinal tenderness Skin General: warm and dry. Normal skin color. Normal skin turgor. Dry facial skin with flakes noted Lesions: no lesions Rashes: no rashes Trauma: no lacerations or abrasions Wounds: no wounds Nails: normal Neuro General: patient oriented x3, gait normal and CN's II-XI intact bilaterally Cranial nerves: Yes Equal, round and reactive pupils present Cognition (Neuro): normal cognition Gait exam (Neuro): Normal gait present Motor exam (neuro): 3/5 motor strength present throughout Sensory Exam: No Sensory deficit (Neuro) Deep tendon reflexes (DTR's): Right patellar reflex intensity grade: 2+ and Left patellar reflex intensity grade: 2+ Extrem General: Yes normal to inspection, No edema and No calf tenderness Psych Appearance: grossly normal Affect: normal affect Attitude: cooperative Thought process: Normal thought process present Assessment and Plan Assessment & Plan (1) Physical exam, annual: Code(s): Z00.00 - Encounter for general adult medical examination without abnormal findings Plan: Moderate physical restrictions due to chronic pain noted Continue current treatment management Follow-up with PCP in 1 month for DM, HTN, and vitamin-D deficiency and with specialist as planned Return sooner with worsening or new symptoms Verbalized understanding and agreed with treatment plan (2) Acute right hip pain: Code(s): M25.551 - Pain in right hip Plan: Reports right hip pain related to slipping on snow 2 weeks ago Active and passive ROM WNL. No overt injury or trauma Declines x-ray at this time Prednisone ordered. Take as prescribed Warm/cold compresses encouraged Follow-up with worsening or new symptoms Verbalized understanding and agreed with treatment plan Orders: Orders Vitamin D 25-OH Total Today E55.9 - Vitamin D deficiency, unspecified Referrals Ophthalmology Referral E11.40 - Type 2 diabetes mellitus with diabetic neuropathy, unspecified Medications: New prednisone 20 mg PO DAILY 5 days 5 tabs 0RF Refilled hydralazine 100 mg PO TID 30 days 90 tabs 4RF torsemide 20 mg PO DAILY 30 days 30 tabs 3RF Coding Level of Care Code Est Pt Prev Care >65y(64303) Diagnoses Physical exam, annual Z00.00 Acute right hip pain M25.551 Additional Codes MENDOZA-7 Assessment Billing - MENDOZA-7 Assessment Tool: MENDOZA-7 Assessment 54135 ([id number])
== END 2023-09-24 12:07 | disposition home or self-care (01) ==
PROVIDERS: PCP Nurse Practitioner Family; Visit Provider Nurse Practitioner Family
DX: Z00.00 Encounter for general adult medical examination without abnormal findings (principal); M25.551 Pain in right hip
CPT/HCPCS: 99397

== ENCOUNTER 2023-09-24 11:49 | Outpatient (REF) | payer OTHER, SELFPAY ==
[2023-09-24 14:21] LABS: Appearance Urine Clear; Color Urine Yellow; Glucose Urine UA Negative (Negative); Leukocyte Esterase Urine Negative (Negative); Nitrite Urine Negative (Negative); UMIC TRIGGER UACC YES; Urine Blood Negative (Negative); Urine Ketones Negative (Negative); Urine Protein 30 (1+) mg/dL (Neg-Trace)
[2023-09-24 14:25] LABS: Bacteria Urine None Seen (None Seen); Hyaline Casts Urine 0-2 /LPF (0-2); RBC Urine 0-2 /HPF (0-2); Squamous Epithelial Cell Urine 0-2 /HPF (0-2); WBC Urine 0-5 /HPF (0-5)
== END 2023-09-24 11:50 | disposition home or self-care (01) ==
LOC: HO.WFDLDS 11:49
PROVIDERS: Visit Provider Nurse Practitioner Family
DX: E55.9 Vitamin D deficiency, unspecified (principal)
CPT/HCPCS: 36415; 81001; 82306

== ENCOUNTER 2023-10-26 08:58 | Outpatient (AMB) | payer OTHER, SELFPAY ==
--- NOTE | 2023-10-26 09:30 | MHC.PC.OV ---
Vital Signs 10/26/23 09:38 10/26/23 10:24 Height 6 ft 2 in Weight 278 lb 2 oz BMI 35.7 BP 144/70 H 140/60 H Blood Pressure Location Rt brachial Rt brachial Position Sitting Sitting Respiration 13 Pulse 104 H Pulse Source Pulse Oximeter Temp 97.4 F Temp Source Temporal Artery Scan Pulse Oximetry (%) 98 Oxygen Delivery Method Room Air Intake Visit Reasons: 1 mos DM, HTN, vit D Intake Note: Patient states he his sensor is telling him his A1c is 6.6. Under Water Assistant Required: No Accompanied by: Self / Same As Patient Allergies Sulfa (Sulfonamide Antibiotics) Allergy (Intermediate, Verified 10/26/23 10:19) Swelling Latex, Natural Rubber Allergy (Mild, Verified 10/26/23 10:19) Redness of Skin grapefruit Adverse Reaction (Unknown, Uncoded 10/26/23 10:19) Unknown Medication List - Last Reconciled 10/26/23 by Tramaine Calzada CNP aspirin (Adult Low Dose Aspirin) 81 mg PO DAILY carvedilol 25 mg PO BID 30 days cholecalciferol (vitamin D3) 50 mcg PO DAILY 90 days clonidine patches transdermal gabapentin 300 mg PO TID PRN hydralazine 100 mg PO TID 30 days icosapent ethyl (Vascepa) 2 grams PO BID insulin glargine (Lantus Solostar U-100 Insulin) 50 units subcut BID insulin lispro 1 sliding scale dose subcut USEASDIRECTD prednisone 20 mg PO DAILY 5 days ranolazine ER 500 mg PO BID 30 days rosuvastatin (Crestor) 40 mg PO DAILY 30 days torsemide 20 mg PO DAILY 30 days Tobacco use date assessed: 09/24/23 Fall risk assessment: 2 + Falls in past year Last assessed Fall Risk: 10/26/23 Dental Screening Dental Screen Date: 10/26/23 Did you have a dental visit in the last 12 months?: Yes Did you have a dental problem in the last 6 months where you did not have access to dental care?: No Was dental information given to patient?: Patient has dentist HPI HPI Comments History of Present Illness Details 68-year-old male presents for diabetes, hypertension, and vitamin-D deficiency follow-up His vitamin-D level was 22.0 about a month ago. He was started on vitamin D3 2000 units daily He admits to taking his medications as prescribed without adverse reactions He notes that he has an appointment to [facility] [place] [facility] [place] on 12/21/2023 He continues to follow Nephrology and Cardiology He notes achiness to his left shoulder at night which he attributes to dangling the shoulder while sleeping [facility] Medical History Chronic kidney disease, stage 3 Edema Back disorder Arthritis Diabetes Congestive heart disease High cholesterol High blood pressure Sinusitis Melanoma Hernia Surgical History Hx of biopsy History of ankle surgery H/O vasectomy History of back surgery Hx of appendectomy H/O heart bypass surgery Family History (Updated 10/26/23 @ 09:49 by Radha Gonsalves MA) Father High blood pressure Cardiovascular disease Paternal Grandfather Cardiovascular disease Social History Housing: Apartment Patient Tobacco Use Status: Never used Tobacco e-Cigarette/Vaping Use: Never Used service: No Current occupational status: employed 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 Francisco J Berkowitz, Jeniffer Chen, Bryan Sofia and colleagues, with an educational dayo from [employer]. Review of Systems Const Details: Const Denies chills, Denies fatigue, Denies fever(s), Denies headache(s) and Denies weakness ENT Denies dizziness and Denies headache(s) Card Denies chest pain, Denies lightheadedness, Denies dyspnea and Denies other (Palpitations) Resp Denies cough, Denies dyspnea, Denies wheezing and Denies other ( shortness of breath) GI Denies abdominal pain, Denies melena, Denies hematochezia, Denies change in bowel habits, Denies dyspepsia and Denies nausea Denies hematuria and Denies dysuria Musc Reports left shoulder soreness, Denies abnormal gait, Denies numbness and Denies tingling Skin/Breast Denies rash, Denies unusual bruising and Denies wounds Neuro Denies abnormal gait, Denies dizziness, Denies headache(s), Denies memory loss, Denies numbness, Denies Sensory deficit (Neuro), Denies tingling and Denies weakness Psych Denies anxiety, Denies depression, Denies memory loss Endo Denies cold intolerance, Denies fatigue, Denies heat intolerance, Denies polydipsia and Denies polyuria Aller/Immun Denies wheezing Physical exam (Primary Care) Vital Signs: Last Vital Signs Temp 97.4 F 10/26/23 09:38 Pulse 104 H 10/26/23 09:38 Resp 13 10/26/23 09:38 BP 144/70 H 10/26/23 09:38 Pulse Ox 98 10/26/23 09:38 Oxygen Delivery Method Room Air 10/26/23 09:38 BMI result Body Mass Index 35.7 Tobacco/Smoking Status: Tobacco use Status Tobacco use date assessed 09/24/23 10/26/23 09:32 Patient Tobacco Use Status Never used Tobacco 10/26/23 09:32 Tobacco use type 03/27/23 15:41 e-Cigarette/Vaping Use Never Used 10/26/23 09:32 Thrive Assessment: Date of Thrive Assessment Date Thrive assessed 09/24/23 10/26/23 09:32 Const Other: General: no acute distress and well developed Nutritional Appearance: well nourished Orientation/consciousness: patient oriented x3 HENMT Head: Yes normocephalic and Yes atraumatic Eyes General: appearance normal, both eyes and all related structures Pupils: Equal, round and reactive pupils present EOM: EOMs intact bilaterally Resp Effort & Inspection: normal respiratory effort Auscultation: clear to auscultation bilaterally Cardio Rate: regular rate Rhythm: regular rhythm Heart sounds: S1 normal heart sound present, S2 normal heart sound present, no gallops, no murmurs and no rubs GI Palpation (GI): No Abdominal aortic bruit present, Soft to palpation, nontender, No hepatosplenomegaly present and No Rebound tenderness present Auscultation: normal bowel sounds General: Yes no CVA tenderness Back/Spine/Pelvis Back: no CVA tenderness Cervical Spine: cervical ROM normal and No Cervical spine tenderness Thoracic/Lumbar Spine: thoraco-lumbar ROM normal, No pain with thoraco-lumbar ROM, No thoracic spinal tenderness and No lumbar spinal tenderness Extrem General: Yes normal to inspection, No edema and No calf tenderness Skin General: warm and dry. Normal skin color. Normal skin turgor Neuro General: patient oriented x3, gait normal and no focal neuro deficit Cranial nerves: Yes Equal, round and reactive pupils present Cognition (Neuro): normal cognition Gait exam (Neuro): Normal gait present Sensory Exam: No Sensory deficit (Neuro) Psych Appearance: grossly normal Affect: normal affect Attitude: cooperative Thought process: Normal thought process present Assessment and Plan Assessment & Plan (1) Type 2 diabetes mellitus with diabetic neuropathy: Code(s): E11.40 - Type 2 diabetes mellitus with diabetic neuropathy, unspecified Plan: Review of his Dexacom CGM revealed average blood glucose of 137 and A1c of 6.6% which is within goal of less than 7.0%. Previous A1c was 6.5% Continue with current treatment regimen. Advised to administer lispro per sliding scale and avoid self adjusting to prevent hypoglycemia episodes Routine exercise encouraged Recent LDL in February was 61 and microalbumin/creatinine ratio was 1579.4. Will recheck these labs He will follow-up for diabetes in 3 months Return with symptoms or concerns Verbalized understanding and agreed with treatment dorita (2) High blood pressure: Code(s): I10 - Essential (primary) hypertension Qualifiers: Hypertension type: primary hypertension Qualified Code(s): I10 - Essential (primary) hypertension Plan: Resting BP is 140/60, above goal of less than 130/80 He notes that he has issues with a co-worker at his work place that is inducing stress and may be attributed to his elevated blood pressure He notes he has an old script for hydroxyzine 25 mg that he will take 2-3 times daily as needed Continue current treatment regimen Low-sodium diet and routine exercise encouraged Follow-up in 2 weeks or return sooner with symptoms or concerns Verbalized understanding and agreed with treatment plan (3) Vitamin D deficiency: Code(s): E55.9 - Vitamin D deficiency, unspecified Plan: He has not gotten vitamin-D level blood work done. He notes he will do so before his next visit Continue current treatment regimen (4) Left shoulder pain: Code(s): M25.512 - Pain in left shoulder Plan: Attributes to dangling the shoulder while sleeping Normal ROM No overt injury or trauma noted Instructed on proper body mechanics while sleeping We take Tylenol as needed for pain or discomfort Warm/cold compresses encouraged Return with worsening or new symptoms Verbalized understanding and agreed with treatment plan Orders: Orders Lipid Panel Today E11.40 - Type 2 diabetes mellitus with diabetic neuropathy, unspecified, E78.00 - Pure hypercholesterolemia, unspecified Vitamin D 25-OH Total Today E55.9 - Vitamin D deficiency, unspecified Microalbumin, Random (w Creat) Today E11.40 - Type 2 diabetes mellitus with diabetic neuropathy, unspecified, N18.32 - Chronic kidney disease, stage 3b Medications: New fenofibrate 120 mg PO DAILY 30 tabs 3RF 30 days Coding Level of Care Code Est Pt Level 4 (23907) Diagnoses Type 2 diabetes mellitus with diabetic neuropathy E11.40 Primary hypertension I10 Hypertension type: primary hypertension Vitamin D deficiency E55.9 Left shoulder pain M25.512
[2023-10-26 09:38] VITALS: BP 144/70; PULSE 104; RESP 13; TEMP 36.3; O2SAT 98; BMI 35.7
[2023-10-26 10:24] VITALS: BP 140/60
== END 2023-10-26 10:49 | disposition home or self-care (01) ==
PROVIDERS: PCP Nurse Practitioner Family; Visit Provider Nurse Practitioner Family
DX: E11.40 Type 2 diabetes mellitus with diabetic neuropathy, unspecified (principal); I10 Essential (primary) hypertension; E55.9 Vitamin D deficiency, unspecified; M25.512 Pain in left shoulder
CPT/HCPCS: 99214

== ENCOUNTER 2023-11-06 07:23 | Outpatient (REF) | payer OTHER, SELFPAY ==
[2023-11-06 11:40] LABS: Appearance Urine Clear; Color Urine Yellow; Glucose Urine UA Negative (Negative); Leukocyte Esterase Urine Negative (Negative); Nitrite Urine Negative (Negative); Specific Gravity - Urine 1.015 (1.005-1.025); UMIC TRIGGER UACC YES; Urine Blood Negative (Negative); Urine Ketones Negative (Negative); Urine Protein 100 (2+) mg/dL (Neg-Trace)
[2023-11-06 11:44] LABS: Bacteria Urine None Seen (None Seen); Hyaline Casts Urine 0-2 /LPF (0-2); RBC Urine 0-2 /HPF (0-2); Squamous Epithelial Cell Urine 0-2 /HPF (0-2); WBC Urine 0-5 /HPF (0-5)
[2023-11-06 12:20] LABS: Cholesterol 116 mg/dL (<200); HDL Cholesterol 22 mg/dL (>40); LDL Cholesterol Calculated 59 mg/dL (<100); Triglycerides 175 mg/dL (<150)
[2023-11-06 12:21] LABS: Vitamin D 25-OH Total 20.2 ng/mL (>30)
[2023-11-06 13:12] LABS: Microalbum/Creatinine Ratio Ur 875.9 ug/mg cr (<30)
== END 2023-11-06 07:24 | disposition home or self-care (01) ==
LOC: HO.WFDLDS 07:23
PROVIDERS: Visit Provider Nurse Practitioner Family
DX: E11.40 Type 2 diabetes mellitus with diabetic neuropathy, unspecified (principal); E78.00 Pure hypercholesterolemia, unspecified; N18.32 Chronic kidney disease, stage 3b; E55.9 Vitamin D deficiency, unspecified
CPT/HCPCS: 36415; 80061; 81001; 82043; 82306; 82570

== ENCOUNTER 2023-11-09 08:28 | Outpatient (AMB) | payer OTHER, SELFPAY ==
[2023-11-09 08:47] VITALS: BP 138/74; PULSE 91; RESP 13; TEMP 36.4; O2SAT 97; BMI 36.1
--- NOTE | 2023-11-09 08:53 | MHC.PC.OV ---
Vital Signs 11/09/23 08:47 11/09/23 09:20 Height 6 ft 2 in Weight 281 lb BMI 36.1 BP 138/74 104/60 Blood Pressure Location Rt brachial Lt brachial Position Sitting Sitting Respiration 13 Pulse 91 Pulse Source Pulse Oximeter Temp 97.6 F Temp Source Temporal Artery Scan Pulse Oximetry (%) 97 Oxygen Delivery Method Room Air Intake Visit Reasons: Hypertension Allergies Sulfa (Sulfonamide Antibiotics) Allergy (Intermediate, Verified 11/09/23 09:13) Swelling Latex, Natural Rubber Allergy (Mild, Verified 11/09/23 09:13) Redness of Skin grapefruit Adverse Reaction (Unknown, Uncoded 11/09/23 09:13) Unknown Medication List - Last Reconciled 11/09/23 by Tramaine Calzada CNP aspirin (Adult Low Dose Aspirin) 81 mg PO DAILY carvedilol 25 mg PO BID 30 days cholecalciferol (vitamin D3) 125 mcg PO DAILY 30 days clonidine patches transdermal fenofibrate 120 mg PO DAILY 30 days gabapentin 300 mg PO TID PRN hydralazine 100 mg PO TID 30 days insulin glargine (Lantus Solostar U-100 Insulin) 50 units subcut BID insulin lispro 1 sliding scale dose subcut USEASDIRECTD prednisone 20 mg PO DAILY 5 days ranolazine ER 500 mg PO BID 30 days rosuvastatin (Crestor) 40 mg PO DAILY 30 days torsemide 20 mg PO DAILY 30 days Tobacco use date assessed: 09/24/23 Fall risk assessment: 2 + Falls in past year Last assessed Fall Risk: 11/09/23 Dental Screening Dental Screen Date: 11/09/23 Did you have a dental visit in the last 12 months?: Yes Did you have a dental problem in the last 6 months where you did not have access to dental care?: No Was dental information given to patient?: Patient has dentist HPI HPI Comments History of Present Illness Details 68-year-old male presents for hypertension follow-up He admits to taking his medications as prescribed without adverse reactions He reports dizziness especially in the morning with blood pressure reading of 80/40 He reports fatigue PFSH Medical History Chronic kidney disease, stage 3 Edema Back disorder Arthritis Diabetes Congestive heart disease High cholesterol High blood pressure Sinusitis Melanoma Hernia Surgical History Hx of biopsy History of ankle surgery H/O vasectomy History of back surgery Hx of appendectomy H/O heart bypass surgery Family History Father High blood pressure Cardiovascular disease Paternal Grandfather Cardiovascular disease Social History Housing: Apartment Patient Tobacco Use Status: Never used Tobacco e-Cigarette/Vaping Use: Never Used service: No Current occupational status: employed 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 Francisco J Berkowitz, Jeniffer Chen, Bryan Sofia and colleagues, with an educational dayo from [employer]. Review of Systems Const Details: Const Denies chills, Reports fatigue, Denies fever(s), Denies headache(s) and Denies weakness ENT Denies dizziness and Denies headache(s) Card Denies chest pain, Denies lightheadedness, Denies dyspnea and Denies other (Palpitations) Resp Denies cough, Denies dyspnea, Denies wheezing and Denies other ( shortness of breath) GI Denies abdominal pain, Denies melena, Denies hematochezia, Denies change in bowel habits, Denies dyspepsia and Denies nausea Denies hematuria and Denies dysuria Musc Denies abnormal gait, Denies myalgias, Denies arthralgias, Denies numbness and Denies tingling Skin/Breast Denies rash, Denies unusual bruising and Denies wounds Neuro Denies abnormal gait, Denies dizziness, Denies headache(s), Denies memory loss, Denies numbness, Denies Sensory deficit (Neuro), Denies tingling and Denies weakness Psych Denies anxiety, Denies depression, Denies memory loss Endo Denies cold intolerance, Reports fatigue, Denies heat intolerance, Denies polydipsia and Denies polyuria Aller/Immun Denies wheezing Physical exam (Primary Care) Vital Signs: Last Vital Signs Temp 97.6 F 11/09/23 08:47 Pulse 91 11/09/23 08:47 Resp 13 11/09/23 08:47 BP 138/74 11/09/23 08:47 Pulse Ox 97 11/09/23 08:47 Oxygen Delivery Method Room Air 11/09/23 08:47 BMI result Body Mass Index 36.1 Tobacco/Smoking Status: Tobacco use Status Tobacco use date assessed 09/24/23 11/09/23 08:57 Patient Tobacco Use Status Never used Tobacco 11/09/23 08:57 Tobacco use type 03/27/23 15:41 e-Cigarette/Vaping Use Never Used 11/09/23 08:57 Thrive Assessment: Date of Thrive Assessment Date Thrive assessed 09/24/23 11/09/23 08:57 Const Other: General: no acute distress and well developed Nutritional Appearance: well nourished Orientation/consciousness: patient oriented x3 HENMT Head: Yes normocephalic and Yes atraumatic Eyes General: appearance normal, both eyes and all related structures Pupils: Equal, round and reactive pupils present EOM: EOMs intact bilaterally Resp Effort & Inspection: normal respiratory effort Auscultation: clear to auscultation bilaterally Cardio Rate: regular rate Rhythm: regular rhythm Heart sounds: S1 normal heart sound present, S2 normal heart sound present, no gallops, no murmurs and no rubs GI Palpation (GI): No Abdominal aortic bruit present, Soft to palpation, nontender, No hepatosplenomegaly present and No Rebound tenderness present Auscultation: normal bowel sounds General: Yes no CVA tenderness Back/Spine/Pelvis Back: no CVA tenderness Cervical Spine: cervical ROM normal and No Cervical spine tenderness Thoracic/Lumbar Spine: thoraco-lumbar ROM normal, No pain with thoraco-lumbar ROM, No thoracic spinal tenderness and No lumbar spinal tenderness Extrem General: Yes normal to inspection, No edema and No calf tenderness Skin General: warm and dry. Normal skin color. Normal skin turgor Neuro General: patient oriented x3, gait normal and no focal neuro deficit Cranial nerves: Yes Equal, round and reactive pupils present Cognition (Neuro): normal cognition Gait exam (Neuro): Normal gait present Sensory Exam: No Sensory deficit (Neuro) Psych Appearance: grossly normal Affect: normal affect Attitude: cooperative Thought process: Normal thought process present Assessment and Plan Assessment & Plan (1) High blood pressure: Code(s): I10 - Essential (primary) hypertension Qualifiers: Hypertension type: primary hypertension Qualified Code(s): I10 - Essential (primary) hypertension Plan: Resting blood pressure is 104/60, within goal of less than 130/80 Reports dizziness especially in the morning with blood pressure reading of 80/40 Will decrease hydralazine to 100 mg twice daily Continue with current treatment regimen Low-sodium diet encouraged Continue to monitor blood pressure and report readings consistently below 100/60; also reports dizziness/lightheadedness Follow-up in 2 months for hypertension and diabetes or return sooner with symptoms or concerns Verbalized understanding and agreed with treatment plan (2) High cholesterol: Code(s): E78.00 - Pure hypercholesterolemia, unspecified Plan: Recent lab results reviewed with the patient Triglycerides improved to 175, HDL is low, 22 Continue current treatment regimen Low-sodium diet and routine exercise encouraged Will continue to monitor Verbalized understanding and agreed with the treatment plan (3) Vitamin D deficiency: Code(s): E55.9 - Vitamin D deficiency, unspecified Plan: He reports fatigue which may be related to vitamin-D deficiency He notes that the pharmacy does not currently have recently prescribed vitamin D3 5000 units Will discontinue vitamin D3 5000 units daily and order vitamin D3 61291 units weekly. Advised to take as prescribed Will recheck vitamin-D level at completion of therapy Follow-up with worsening or new symptoms Verbalized understanding and agreed with treatment plan Medications: New cholecalciferol (vitamin D3) 1,250 mcg PO QWEEK 8 weeks 8 tabs 0RF Changed From insulin glargine (Lantus Solostar U-100 Insulin) 80 units in the morning and 40 units at night. 50 units subcut BID To insulin glargine (Lantus Solostar U-100 Insulin) 80 units in the morning and 40 units at night. 50 units (0.5 mL) subcut BID 30 days 30 mL 3RF From hydralazine 100 mg PO TID 30 days 90 tabs 4RF To hydralazine 100 mg PO BID 30 days 60 tabs 4RF Discontinued cholecalciferol (vitamin D3) Discontinued Reason: Change Referral Type 125 mcg PO DAILY 30 days 30 tabs 3RF Coding Level of Care Code Est Pt Level 4 (22811) Diagnoses Primary hypertension I10 Hypertension type: primary hypertension High cholesterol E78.00 Vitamin D deficiency E55.9
[2023-11-09 09:20] VITALS: BP 104/60
== END 2023-11-09 09:28 | disposition home or self-care (01) ==
PROVIDERS: PCP Nurse Practitioner Family; Visit Provider Nurse Practitioner Family
DX: I10 Essential (primary) hypertension (principal); E78.00 Pure hypercholesterolemia, unspecified; E55.9 Vitamin D deficiency, unspecified
CPT/HCPCS: 99214

== ENCOUNTER 2023-12-12 13:03 | Outpatient (AMB) | payer OTHER, SELFPAY ==
--- NOTE | 2023-12-12 13:14 | MHC.PC.OV ---
Vital Signs 12/12/23 13:21 Height 6 ft 2 in Weight 280 lb BMI 35.9 BP 138/64 Blood Pressure Location Rt brachial Position Sitting Respiration 16 Pulse 65 Pulse Source Pulse Oximeter Temp 98.3 F Temp Source Oral Pulse Oximetry (%) 98 Oxygen Delivery Method Room Air Intake Visit Reasons: [facility] ed follow up Intake Note: Emergency room follow up, still not feeling better with sinus infection. Allergies Sulfa (Sulfonamide Antibiotics) Allergy (Intermediate, Verified 12/12/23 13:30) Swelling Latex, Natural Rubber Allergy (Mild, Verified 12/12/23 13:30) Redness of Skin grapefruit Adverse Reaction (Unknown, Uncoded 12/12/23 13:15) Unknown Medication List - Last Reconciled 12/12/23 by Francesca Fried [facility]- allopurinol 300 mg PO DAILY 90 days amoxicillin-pot clavulanate 875-125 mg 1 tab PO BID aspirin (Adult Low Dose Aspirin) 81 mg PO DAILY carvedilol 25 mg PO BID 30 days cholecalciferol (vitamin D3) 1,250 mcg PO QWEEK 8 weeks clonidine patches transdermal erythromycin ophthalmic (eye) fenofibrate 120 mg PO DAILY 30 days gabapentin 300 mg PO TID PRN hydralazine 100 mg PO BID 30 days insulin glargine (Lantus Solostar U-100 Insulin) 50 units (0.5 mL) subcut BID 30 days insulin lispro 1 sliding scale dose subcut USEASDIRECTD ranolazine ER 500 mg PO BID 30 days rosuvastatin (Crestor) 40 mg PO DAILY 30 days torsemide 20 mg PO DAILY 30 days Tobacco use date assessed: 12/12/23 Fall risk assessment: 2 + Falls in past year Last assessed Fall Risk: 12/12/23 Dental Screening Dental Screen Date: 11/09/23 HPI HPI Comments History of Present Illness Details Here today for HDF. WENT TO [facility] ON 12/10/2023 for evaluation and treatment of 5 weeks of nasal congestion, facial pain, periorbital swelling, left greater than right. He was diagnosed with sinus congestion and discharged home with Augmentin 1 tablet p.o. b.i.d. x7 days and erythromycin ointment 4 times per day. He has been taking the medications as prescribed. Unfortunately today he presents he states he has not feeling any better. In fact he is feeling worse. He has not having extensive pain on the left side of his face that does not migrated over to the right side of his face. Reports that his skin is painful with even the lightest touch. He has wearing a mask at the time of the visit reports that wearing the mass causes pain. She reports that his ears feel fine. Reports that his throat feels fine. His breathing is fine. Reports his blood sugars are under control. Other than the blurred vision from the eye ointment and obstruction from the edema, reports that his vision is normal. Reports lots of purulent drainage from bilat eyes. has dental pain. States he has had a sinus infection in the past before and he responded very well and quickly to antibiotics. Not taking any fever reducers. Sunday did take an oxy that he had at home w/o relief. No other pain relief meds. [facility] Medical History Chronic kidney disease, stage 3 Edema Back disorder Arthritis Diabetes Congestive heart disease High cholesterol High blood pressure Sinusitis Melanoma Hernia Surgical History Hx of biopsy History of ankle surgery H/O vasectomy History of back surgery Hx of appendectomy H/O heart bypass surgery Family History Father High blood pressure Cardiovascular disease Paternal Grandfather Cardiovascular disease Social History Housing: Apartment Patient Tobacco Use Status: Never used Tobacco e-Cigarette/Vaping Use: Never Used service: No Current occupational status: employed 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 Francisco J Berkowitz, Jeniffer Chen, Bryan Sofia and colleagues, with an educational dayo from [employer]. Review of Systems Const All systems reviewed & are unremarkable except as noted in HPI and below Physical exam (Primary Care) Vital Signs: Last Vital Signs Temp 98.3 F 12/12/23 13:21 Pulse 65 12/12/23 13:21 Resp 16 12/12/23 13:21 BP 138/64 12/12/23 13:21 Pulse Ox 98 12/12/23 13:21 Oxygen Delivery Method Room Air 12/12/23 13:21 BMI result Body Mass Index 35.9 Tobacco/Smoking Status: Tobacco use Status Tobacco use date assessed 12/12/23 12/12/23 13:19 Patient Tobacco Use Status Never used Tobacco 12/12/23 13:19 Tobacco use type 03/27/23 15:41 e-Cigarette/Vaping Use Never Used 12/12/23 13:19 Thrive Assessment: Date of Thrive Assessment Date Thrive assessed 09/24/23 12/12/23 13:19 Const Other: Awake alert mildly ill-appearing but no acute distress Periorbital edema bilat, left worse than right Sclera and conjunctiva clear bilat, scant purulent drainage inner canthus bilat left worse than right TM intact and clear on the right, mild mucoid congestion on the left Nares with scant mucoid drainage bilat, turbinates within normal limits. Was unable to tolerate sinus palpation. Even the lightest touch around the area of his eyebrow on the left side causes excruciating pain. He does have some slight redness, however no vesicular lesions or crusting noted in the ugarte on the left side. No lesions around the eye. No photophobia. MMM, pharynx WNL Speaking in full sentences. Assessment and Plan Assessment & Plan (1) Hospital discharge follow-up: Code(s): Z09 - Encounter for follow-up examination after completed treatment for conditions other than malignant neoplasm Plan: We will add in valacyclovir and prednisone to treat his symptoms. Advised he should continue the Augmentin and erythromycin as prescribed. Needs to return to the office on Sunday for close follow-up. If he has no improvement we will need to consider alternative treatment. Plan This note is constructed using voice recognition software. While every effort has been made to ensure accuracy in copy machine operator, still errors may have been included Sometimes, these errors may affect the content or meaning of the given sentence . Total time spent caring for the patient today was 45 minutes. This includes time spent before the visit reviewing the chart, time spent during the visit, and time spent after the visit on documentation Medications: New prednisone 60 mg (3 x 20 mg) PO DAILY 5 days 15 tabs 0RF valacyclovir 1,000 mg PO Q8H 7 days 21 tabs 0RF Refilled allopurinol 300 mg PO DAILY 90 days 90 tabs 0RF Coding Level of Care Code Est Pt Level 5 (59224) Diagnoses Hospital discharge follow-up Z09
[2023-12-12 13:21] VITALS: BP 138/64; PULSE 65; RESP 16; TEMP 36.8; O2SAT 98; BMI 35.9
== END 2023-12-12 13:47 | disposition home or self-care (01) ==
PROVIDERS: PCP Nurse Practitioner Family; Visit Provider Nurse Practitioner Family
DX: Z09 Encounter for follow-up examination after completed treatment for conditions other than malignant neoplasm (principal)
CPT/HCPCS: 99215

== ENCOUNTER 2023-12-14 11:51 | Outpatient (AMB) | payer OTHER, SELFPAY ==
[2023-12-14 12:02] VITALS: BP 160/78; PULSE 88; RESP 13; TEMP 36.6; O2SAT 98; BMI 35.6
--- NOTE | 2023-12-14 12:02 | MHC.PC.OV ---
Vital Signs 12/14/23 12:02 12/14/23 12:24 Height 6 ft 2 in Weight 277 lb BMI 35.6 BP 160/78 H 150/70 H Blood Pressure Location Rt brachial Rt brachial Position Sitting Sitting Respiration 13 Pulse 88 Pulse Source Pulse Oximeter Temp 97.8 F Temp Source Temporal Artery Scan Pulse Oximetry (%) 98 Oxygen Delivery Method Room Air Intake Visit Reasons: fri w me or mt 30 MIN FU FACIAL SWELLING AND PAIN Risk Management Director Required: No Accompanied by: Self / Same As Patient Allergies Sulfa (Sulfonamide Antibiotics) Allergy (Intermediate, Verified 12/14/23 12:22) Swelling Latex, Natural Rubber Allergy (Mild, Verified 12/14/23 12:22) Redness of Skin grapefruit Adverse Reaction (Unknown, Uncoded 12/14/23 12:22) Unknown Medication List - Last Reconciled 12/14/23 by Tramaine Calzada CNP allopurinol 300 mg PO DAILY 90 days amoxicillin-pot clavulanate 875-125 mg 1 tab PO BID aspirin (Adult Low Dose Aspirin) 81 mg PO DAILY carvedilol 25 mg PO BID 30 days cholecalciferol (vitamin D3) 1,250 mcg PO QWEEK 8 weeks clonidine patches transdermal erythromycin ophthalmic (eye) fenofibrate 120 mg PO DAILY 30 days gabapentin 300 mg PO TID PRN hydralazine 100 mg PO BID 30 days insulin glargine (Lantus Solostar U-100 Insulin) 50 units (0.5 mL) subcut BID 30 days insulin lispro 1 sliding scale dose subcut USEASDIRECTD prednisone 60 mg (3 x 20 mg) PO DAILY 5 days ranolazine ER 500 mg PO BID 30 days rosuvastatin (Crestor) 40 mg PO DAILY 30 days torsemide 20 mg PO DAILY 30 days valacyclovir 1,000 mg PO Q8H 7 days Tobacco use date assessed: 12/12/23 Fall risk assessment: 2 + Falls in past year Last assessed Fall Risk: 12/14/23 Dental Screening Dental Screen Date: 12/14/23 Did you have a dental visit in the last 12 months?: Yes Did you have a dental problem in the last 6 months where you did not have access to dental care?: No Was dental information given to patient?: Patient has dentist HPI HPI Comments History of Present Illness Details 68-year-old male presents for a follow-up visit. He was evaluated and treated at [facility] on 12/10/2023 for 5 weeks of nasal congestion, facial pain, periorbital swelling (left greater than right); diagnosed with sinus congestion and discharged home on Augmentin and erythromycin. He had a hospital discharge follow-up in the office on 12/12/2023. Valacyclovir and prednisone were added to his treatment regimen. He notes that he has been taking his medications as prescribed without adverse reactions. He stopped taking prednisone today through to significantly elevated blood pressure and blood sugar readings; he notes history of elevated blood pressure and glucose on prednisone. He states that he has been using nasal saline flush and had significant nasal drainage yesterday. Reports some swelling around the eyes. He denies redness, pain, discharge. He denies acute symptoms at this time. He request a note to be excused from work today. [facility] Medical History (Updated 12/14/23 @ 12:41 by Tramaine Calzada CNP) Heart murmur Chronic kidney disease, stage 3 Edema Back disorder Arthritis Diabetes Congestive heart disease High cholesterol High blood pressure Sinusitis Melanoma Hernia Surgical History Hx of biopsy History of ankle surgery H/O vasectomy History of back surgery Hx of appendectomy H/O heart bypass surgery Family History Father High blood pressure Cardiovascular disease Paternal Grandfather Cardiovascular disease Social History Housing: Apartment Patient Tobacco Use Status: Never used Tobacco e-Cigarette/Vaping Use: Never Used service: No Current occupational status: employed 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 Francisco J Berkowitz, Jeniffer Chen, Bryan Sofia and colleagues, with an educational dayo from [employer]. Review of Systems Const Details: Const Denies chills, Denies fatigue, Denies fever(s), Denies headache(s) and Denies weakness ENT Reports as per HPI Card Denies chest pain, Denies lightheadedness, Denies dyspnea and Denies other (Palpitations) Resp Denies cough, Denies dyspnea, Denies wheezing and Denies other ( shortness of breath) GI Denies abdominal pain, Denies melena, Denies hematochezia, Denies change in bowel habits, Denies dyspepsia and Denies nausea Denies hematuria and Denies dysuria Musc Denies abnormal gait, Denies myalgias, Denies arthralgias, Denies numbness and Denies tingling Skin/Breast Denies rash, Denies unusual bruising and Denies wounds Neuro Denies abnormal gait, Denies dizziness, Denies headache(s), Denies memory loss, Denies numbness, Denies Sensory deficit (Neuro), Denies tingling and Denies weakness Psych Denies anxiety, Denies depression, Denies memory loss Endo Denies cold intolerance, Denies fatigue, Denies heat intolerance, Denies polydipsia and Denies polyuria Aller/Immun Denies wheezing Physical exam (Primary Care) Vital Signs: Last Vital Signs Temp 97.8 F 12/14/23 12:02 Pulse 88 12/14/23 12:02 Resp 13 12/14/23 12:02 BP 160/78 H 12/14/23 12:02 Pulse Ox 98 12/14/23 12:02 Oxygen Delivery Method Room Air 12/14/23 12:02 BMI result Body Mass Index 35.6 Tobacco/Smoking Status: Tobacco use Status Tobacco use date assessed 12/12/23 12/12/23 13:19 Patient Tobacco Use Status Never used Tobacco 12/12/23 13:19 Tobacco use type 03/27/23 15:41 e-Cigarette/Vaping Use Never Used 12/12/23 13:19 Thrive Assessment: Date of Thrive Assessment Date Thrive assessed 09/24/23 12/12/23 13:19 Const Other: General: no acute distress and well developed Nutritional Appearance: well nourished Orientation/consciousness: patient oriented x3 HENMT Head is normocephalic Bilateral ear canal and TM are normal Nasal turbinates and oropharynx are pink and moist Sinuses are nontender with palpation No auricular or cervical lymphadenopathy Eyes General: appearance normal, both eyes and all related structures, except for moderate bilaterally periorbital swelling; no erythema, pain, or discharge Pupils: Equal, round and reactive pupils present EOM: EOMs intact bilaterally Resp Effort & Inspection: normal respiratory effort Auscultation: clear to auscultation bilaterally Cardio Rate: regular rate Rhythm: regular rhythm Heart sounds: S1 normal heart sound present, S2 normal heart sound present, no gallops, positive murmurs and no rubs GI Palpation (GI): No Abdominal aortic bruit present, Soft to palpation, nontender, No hepatosplenomegaly present and No Rebound tenderness present Auscultation: normal bowel sounds General: Yes no CVA tenderness Back/Spine/Pelvis Back: no CVA tenderness Cervical Spine: cervical ROM normal and No Cervical spine tenderness Thoracic/Lumbar Spine: thoraco-lumbar ROM normal, No pain with thoraco-lumbar ROM, No thoracic spinal tenderness and No lumbar spinal tenderness Extrem General: Yes normal to inspection, No edema and No calf tenderness Skin General: warm and dry. Normal skin color. Normal skin turgor Neuro General: patient oriented x3, gait normal and no focal neuro deficit Cranial nerves: Yes Equal, round and reactive pupils present Cognition (Neuro): normal cognition Gait exam (Neuro): Normal gait present Sensory Exam: No Sensory deficit (Neuro) Psych Appearance: grossly normal Affect: normal affect Attitude: cooperative Thought process: Normal thought process present Assessment and Plan Assessment & Plan (1) Sinus congestion: Code(s): R09.81 - Nasal congestion Plan: Significantly improved facial and nasal symptoms Moderate bilaterally periorbital swelling; no erythema, pain, or discharge Will discharge prednisone at this time Continue to take Augmentin and valacyclovir, and use erythromycin ointment as prescribed Warm compresses encouraged Follow-up with PCP as planned or return sooner with worsening or new symptoms Verbalized understanding and agreed with treatment plan Coding Level of Care Code Est Pt Level 3 (46346) Diagnoses Sinus congestion R09.81
[2023-12-14 12:24] VITALS: BP 150/70
== END 2023-12-14 12:36 | disposition home or self-care (01) ==
PROVIDERS: PCP Nurse Practitioner Family; Visit Provider Nurse Practitioner Family
DX: R09.81 Nasal congestion (principal)
CPT/HCPCS: 99213

== ENCOUNTER 2024-01-08 08:39 | Outpatient (REF) | payer OTHER, SELFPAY ==
[2024-01-08 11:44] LABS: Appearance Urine Clear; Color Urine Yellow; Glucose Urine UA Negative (Negative); Leukocyte Esterase Urine Negative (Negative); Nitrite Urine Negative (Negative); PH 5.5 (5.0-9.0); UMIC TRIGGER UACC YES; Urine Blood Negative (Negative); Urine Ketones Negative (Negative); Urine Protein 100 (2+) mg/dL (Neg-Trace)
[2024-01-08 11:52] LABS: Bacteria Urine None Seen (None Seen); Hyaline Casts Urine 0-2 /LPF (0-2); RBC Urine 0-2 /HPF (0-2); Squamous Epithelial Cell Urine 0-2 /HPF (0-2); WBC Urine 0-5 /HPF (0-5)
[2024-01-08 12:47] LABS: Vitamin D 25-OH Total 32.2 ng/mL (>30)
== END 2024-01-08 08:40 | disposition home or self-care (01) ==
LOC: HO.WFDLDS 08:39
PROVIDERS: Visit Provider Nurse Practitioner Family
DX: E55.9 Vitamin D deficiency, unspecified (principal); N18.4 Chronic kidney disease, stage 4 (severe); K46.9 Unspecified abdominal hernia without obstruction or gangrene; M54.50 Low back pain, unspecified; G89.29 Other chronic pain; E11.40 Type 2 diabetes mellitus with diabetic neuropathy, unspecified; C43.9 Malignant melanoma of skin, unspecified; E78.00 Pure hypercholesterolemia, unspecified; I10 Essential (primary) hypertension
CPT/HCPCS: 36415; 81001; 82306

== ENCOUNTER 2024-01-11 12:11 | Outpatient (AMB) | payer OTHER, SELFPAY ==
--- NOTE | 2024-01-11 12:24 | A.OFFPC_ITS ---
Vital Signs 01/11/24 12:30 01/11/24 12:36 01/11/24 12:54 Height 6 ft 2 in Weight 275 lb BMI 35.3 BP 158/94 H 138/68 132/60 Blood Pressure Location Lt brachial Lt brachial Position Sitting Sitting Sitting Respiration 18 Pulse 43 L 75 Pulse Source Pulse Oximeter Pulse Oximeter Pulse Oximetry (%) 97 Oxygen Delivery Method Room Air Intake Visit Reasons: HTN, DM - see comments Intake Note: Follow up diabetes. Sinus infection for three months. Was on antibiotic 1.5 months ago, symptoms came back. Allergies Sulfa (Sulfonamide Antibiotics) Allergy (Intermediate, Verified 01/11/24 12:34) Swelling Latex, Natural Rubber Allergy (Mild, Verified 01/11/24 12:34) Redness of Skin grapefruit Adverse Reaction (Unknown, Uncoded 01/11/24 12:34) Unknown Medication List - Last Reconciled 01/11/24 by Tramaine Calzada CNP allopurinol 300 mg PO DAILY 90 days aspirin (Adult Low Dose Aspirin) 81 mg PO DAILY carvedilol 25 mg PO BID 30 days clonidine patches transdermal fenofibrate 120 mg PO DAILY 30 days gabapentin 300 mg PO TID PRN hydralazine 100 mg PO BID 30 days insulin glargine (Lantus Solostar U-100 Insulin) 50 units (0.5 mL) subcut BID 30 days insulin lispro 1 sliding scale dose subcut USEASDIRECTD losartan-hydrochlorothiazide 100-25 mg 1 tab PO DAILY ranolazine ER 500 mg PO BID 30 days rosuvastatin (Crestor) 40 mg PO DAILY 30 days torsemide 20 mg PO DAILY 30 days Tobacco use date assessed: 01/11/24 Fall risk assessment: 2 + Falls in past year Dental Screening Dental Screen Date: 12/14/23 HPI HPI Comments History of Present Illness Details 68-year-old male presents for hypertensi on and diabetes follow-up He admits to taking his medications as prescribed without adverse reactions. He has been taking Lantus 130 units daily in the morning and lispro 12-18 units with carb count. He notes that he was recently informed by his health plan that they will soon stop overing lispro He has an appointment with endocrinology on 01/26/2024; his last appointment was in May 2023; two follow-up appointments were canceled by endocrinology His A1c today is 6.4% by his Dexcom monitor He reports nasal congestion with dark green discharge, worse at night. Denies headache, cough, sore throat, fever, chills, body aches, fatigue, weakness. He was evaluated at [facility] ED for similar symptoms last month and was prescribed Augmentin, valacyclovir, and erythromycin ointment. He notes that his symptoms was about 90% resolved after treatment. He started taking Sheree today. He has been using nasal saline rinse [facility] Medical History (Updated 12/14/23 @ 12:41 by Tramaine Calzada CNP) Heart murmur Chronic kidney disease, stage 3 Edema Back disorder Arthritis Diabetes Congestive heart disease High cholesterol High blood pressure Sinusitis Melanoma Hernia Surgical History Hx of biopsy History of ankle surgery H/O vasectomy History of back surgery Hx of appendectomy H/O heart bypass surgery Family History Father High blood pressure Cardiovascular disease Paternal Grandfather Cardiovascular disease Social History Housing: Apartment Patient Tobacco Use Status: Never used Tobacco e-Cigarette/Vaping Use: Never Used service: No Current occupational status: employed 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 Francisco J Berkowitz, Jeniffer Chen, Bryan Sofia and colleagues, with an educational dayo from [employer]. Review of Systems Const Details: Const Denies chills, Denies fatigue, Denies fever(s), Denies headache(s) and Denies weakness ENT Reports as per HPI Card Denies chest pain, Denies lightheadedness, Denies dyspnea and Denies other (Palpitations) Resp Denies cough, Denies dyspnea, Denies wheezing and Denies other ( shortness of breath) GI Denies abdominal pain, Denies melena, Denies hematochezia, Denies change in bowel habits, Denies dyspepsia and Denies nausea Denies hematuria and Denies dysuria Musc Denies abnormal gait, Denies myalgias, Denies arthralgias, Denies numbness and Denies tingling Skin/Breast Denies rash, Denies unusual bruising and Denies wounds Neuro Denies abnormal gait, Denies dizziness, Denies headache(s), Denies memory loss, Denies numbness, Denies Sensory deficit (Neuro), Denies tingling and Denies weakness Psych Denies anxiety, Denies depression, Denies memory loss Endo Denies cold intolerance, Denies fatigue, Denies heat intolerance, Denies polydipsia and Denies polyuria Aller/Immun Denies wheezing Physical exam (Primary Care) Vital Signs: Last Vital Signs Pulse 43 L 01/11/24 12:30 Resp 18 01/11/24 12:30 BP 158/94 H 01/11/24 12:30 Pulse Ox 97 01/11/24 12:30 Oxygen Delivery Method Room Air 01/11/24 12:30 BMI result Body Mass Index 35.3 Tobacco/Smoking Status: Tobacco use Status Tobacco use date assessed 01/11/24 01/11/24 12:29 Patient Tobacco Use Status Never used Tobacco 01/11/24 12:29 Tobacco use type 03/27/23 15:41 e-Cigarette/Vaping Use Never Used 01/11/24 12:29 Thrive Assessment: Date of Thrive Assessment Date Thrive assessed 09/24/23 01/11/24 12:29 Const Other: General: no acute distress and well developed Nutritional Appearance: well nourished Orientation/consciousness: patient oriented x3 HENMT Head is normocephalic Bilateral ear canal and TM are normal Nasal turbinates and oropharynx are pink and moist Sinuses are nontender with palpation No auricular or cervical lymphadenopathy Eyes General: appearance normal, both eyes and all related structures Pupils: Equal, round and reactive pupils present EOM: EOMs intact bilaterally Resp Effort & Inspection: normal respiratory effort Auscultation: clear to auscultation bilaterally Cardio Rate: regular rate Rhythm: regular rhythm Heart sounds: S1 normal heart sound present, S2 normal heart sound present, no gallops, + murmurs and no rubs GI Palpation (GI): No Abdominal aortic bruit present, Soft to palpation, nontender, No hepatosplenomegaly present and No Rebound tenderness present Auscultation: normal bowel sounds General: Yes no CVA tenderness Back/Spine/Pelvis Back: no CVA tenderness Cervical Spine: cervical ROM normal and No Cervical spine tenderness Thoracic/Lumbar Spine: thoraco-lumbar ROM normal, No pain with thoraco-lumbar ROM, No thoracic spinal tenderness and No lumbar spinal tenderness Extrem General: Yes normal to inspection, No edema and No calf tenderness Skin General: warm and dry. Normal skin color. Normal skin turgor Neuro General: patient oriented x3, gait normal and no focal neuro deficit Cranial nerves: Yes Equal, round and reactive pupils present Cognition (Neuro): normal cognition Gait exam (Neuro): Normal gait present Sensory Exam: No Sensory deficit (Neuro) Psych Appearance: grossly normal Affect: normal affect Attitude: cooperative Thought process: Normal thought process present Assessment and Plan Assessment & Plan (1) High blood pressure: Code(s): I10 - Essential (primary) hypertension Qualifiers: Hypertension type: primary hypertension Qualified Code(s): I10 - Essential (primary) hypertension Plan: Resting blood pressure is 132/60, slightly above goal of less than 130/80 Continue current treatment regimen Low-sodium diet encouraged Follow-up in 3 months or return sooner with symptoms or concerns Verbalized understanding and agreed with treatment plan (2) Type 2 diabetes mellitus with diabetic neuropathy: Code(s): E11.40 - Type 2 diabetes mellitus with diabetic neuropathy, unspecified Plan: A1c today is 6.4% by his Dexcom monitor, within goal of less than 7.0%. Previous A1c was 6.6% Continue with current treatment regimen ADA diet and routine exercise encouraged Follow-up with endocrinology as planned. May referred to new endocrinology if he chooses due to appointment cancellations Recent LDL is 59; microalbumin/creatinine ratio is 875.9 Advised to get urine microalbumin/creatinine lab and fasting lipid panel blood work done before his next visit Follow-up in 3 months Verbalized understanding and agreed with treatment plan (3) Sinus congestion: Code(s): R09.81 - Nasal congestion Plan: Reports nasal congestion with dark green discharge, worse at night Nasal turbinates pink moist. Frontal and maxillary sinuses nontender to palpation Likely sinusitis Z-Sunny ordered. Advised to take as prescribed. Instructed on the risks, benefits, and potential adverse reactions of the medication Continue to take Sheree daily and use nasal saline rinse Follow-up with worsening or new symptoms Verbalized understanding and agreed with treatment plan (4) Vitamin D deficiency: Code(s): E55.9 - Vitamin D deficiency, unspecified Plan: Recent vitamin-D level is normal, 32.2 Will order vitamin-D 2000 units daily. Advised to take as prescribed The bobby water may also improve his vitamin-D level Verbalized understanding and agreed with treatment plan Orders: Orders Microalbumin, Random (w Creat) Today E11.40 - Type 2 diabetes mellitus with diabetic neuropathy, unspecified Lipid Panel Today E78.00 - Pure hypercholesterolemia, unspecified Medications: New cholecalciferol (vitamin D3) 50 mcg PO DAILY 90 days 90 tabs 1RF azithromycin (Zithromax Z-Sunny) For 250 mg dose pack: take 500 mg today (day 1), then 250 mg for 4 days (days 2-5) PO 6 tabs 0RF Coding Level of Care Code Est Pt Level 4 (42566) Complex EM visit Add On G2211 Diagnoses Primary hypertension I10 Hypertension type: primary hypertension Type 2 diabetes mellitus with diabetic neuropathy E11.40 Sinus congestion R09.81 Vitamin D deficiency E55.9
[2024-01-11 12:30] VITALS: BP 158/94; PULSE 43; RESP 18; O2SAT 97; BMI 35.3
[2024-01-11 12:36] VITALS: BP 138/68; PULSE 75
[2024-01-11 12:54] VITALS: BP 132/60
== END 2024-01-11 13:13 | disposition home or self-care (01) ==
PROVIDERS: PCP Nurse Practitioner Family; Visit Provider Nurse Practitioner Family
DX: I10 Essential (primary) hypertension (principal); E11.40 Type 2 diabetes mellitus with diabetic neuropathy, unspecified; R09.81 Nasal congestion; E55.9 Vitamin D deficiency, unspecified
CPT/HCPCS: 99214; G2211

== ENCOUNTER 2024-01-25 08:54 | Outpatient (REF) | payer OTHER, SELFPAY ==
[2024-01-25 11:27] LABS: MANUAL DIFF FLAG NO
[2024-01-25 11:33] LABS: Basophils Percent Auto 0.2 % (0-2); Eosinophils Absolute Auto 0.1 X10*3/uL (0.0-0.4); Eosinophils Percent Auto 0.5 % (0-4); Hematocrit 33.4 % (42.0-52.0); Hemoglobin 11.2 g/dl (14.0-18.0); Imm Gran Abs Auto 0.06 X10*3/uL (0.00-0.03); Imm Gran Pct Auto 0.5 % (0.0-0.4); Lymphocytes Absolute Auto 1.6 X10*3/uL (1.2-4.9); Mean Corpuscular HGB Conc 33.5 g/dl (31.0-36.0); Mean Corpuscular Hemoglobin 32.5 pg (27.0-33.0); Mean Corpuscular Volume 96.8 fL (80.0-98.0); Mean Platelet Volume 10.2 fL (9.4-12.4); Monocytes Absolute Auto 0.9 X10*3/uL (0.1-1.2); Monocytes Percent Auto 6.7 % (2-11); Neutrophils Absolute Auto 10.6 x10*3/uL (2.0-8.3); Neutrophils Percent Auto 80.1 % (45-73); Platelet Count 195 X10*3/uL (160-400); Red Blood Count 3.45 X10*6/uL (4.60-5.80); Red Cell Distribution Width 15.7 % (11.0-16.0); White Blood Count 13.2 X10*3/uL (4.8-10.8)
[2024-01-25 11:55] LABS: Creatinine Urine 35.59 mg/dL; Potassium Urine Random 17.3 mmol/L; Protein/Creatinine Ratio, Ur 0.59 (<0.2); Total Protein Urine Random 21 mg/dL (<12)
[2024-01-25 12:06] LABS: Parathyroid Hormone Intact 240.5 pg/mL (8.7-77.1)
[2024-01-25 12:17] LABS: Ferritin 91 ng/mL (20-250)
[2024-01-25 12:55] LABS: Blood Urea Nitrogen 88 mg/dL (9-16); Calcium 9.2 mg/dL (8.4-10.2); Iron 93 mcg/dL (45-160); Percent Iron Saturation 32 % (15-50); Phosphorus 4.6 mg/dL (2.7-4.5); Total Iron Binding Capacity 291 mcg/dL (228-428); Unsaturated Iron Binding 198 ug/dL
[2024-01-25 14:17] LABS: Estimated Glomerular Filt Rate 12
== END 2024-01-25 08:55 | disposition home or self-care (01) ==
LOC: HO.WFDLDS 08:54
PROVIDERS: Visit Provider Internal Medicine Nephrology
DX: I12.9 Hypertensive chronic kidney disease with stage 1 through stage 4 chronic kidney disease, or unspecified chronic kidney disease (principal); E11.22 Type 2 diabetes mellitus with diabetic chronic kidney disease; N18.4 Chronic kidney disease, stage 4 (severe); N25.81 Secondary hyperparathyroidism of renal origin; Z90.5 Acquired absence of kidney
CPT/HCPCS: 36415; 82306; 82310; 82436; 82565; 82570; 82728; 83540; 83970; 84100; 84133; 84156; 84300; 84520; 85025

== ENCOUNTER 2024-03-25 09:17 | Outpatient (REF) | payer OTHER, SELFPAY ==
[2024-03-25 11:25] LABS: Appearance Urine Clear; Color Urine Yellow; Glucose Urine UA Negative (Negative); Leukocyte Esterase Urine Negative (Negative); Nitrite Urine Negative (Negative); PH 5.5 (5.0-9.0); Specific Gravity - Urine 1.015 (1.005-1.025); UMIC TRIGGER UACC YES; Urine Blood Negative (Negative); Urine Ketones Negative (Negative); Urine Protein 100 (2+) mg/dL (Neg-Trace)
[2024-03-25 11:50] LABS: Bacteria Urine None Seen (None Seen); Hyaline Casts Urine 0-2 /LPF (0-2); RBC Urine 0-2 /HPF (0-2); Squamous Epithelial Cell Urine 0-2 /HPF (0-2); WBC Urine 0-5 /HPF (0-5)
[2024-03-25 11:55] LABS: Cholesterol 127 mg/dL (<200); HDL Cholesterol 23 mg/dL (>40); LDL Cholesterol Calculated 48 mg/dL (<100); Triglycerides 284 mg/dL (<150)
[2024-03-25 12:20] LABS: Creatinine Urine 81.59 mg/dL; Microalbum/Creatinine Ratio Ur 578.5 ug/mg cr (<30)
== END 2024-03-25 09:18 | disposition home or self-care (01) ==
LOC: HO.WFDLDS 09:17
PROVIDERS: Visit Provider Nurse Practitioner Family
DX: E78.00 Pure hypercholesterolemia, unspecified (principal); E11.40 Type 2 diabetes mellitus with diabetic neuropathy, unspecified
CPT/HCPCS: 36415; 80061; 81001; 82043; 82570

== ENCOUNTER 2024-04-07 09:41 | Outpatient (AMB) | payer OTHER, SELFPAY ==
--- NOTE | 2024-04-07 09:44 | MHC.PC.OV ---
Vital Signs 04/07/24 09:51 04/07/24 10:24 Height 6 ft 2 in Weight 275 lb BMI 35.3 BP 94/64 100/60 Blood Pressure Location Lt brachial Rt brachial Position Sitting Sitting Respiration 16 Pulse 80 Pulse Source Pulse Oximeter Temp 98.0 F Temp Source Oral Pulse Oximetry (%) 97 Intake Visit Reasons: 3 mos HTN, DM -see comments Intake Note: patient here for 3 month follow up on HTN, DM. Heat Treat Worker Required: No Allergies Sulfa (Sulfonamide Antibiotics) Allergy (Intermediate, Verified 04/07/24 10:04) Swelling Latex, Natural Rubber Allergy (Mild, Verified 04/07/24 10:04) Redness of Skin grapefruit Adverse Reaction (Unknown, Uncoded 04/07/24 10:04) Unknown Medication List - Last Reconciled 04/07/24 by rTamaine Calzada CNP allopurinol 300 mg PO DAILY 90 days aspirin (Adult Low Dose Aspirin) 81 mg PO DAILY azithromycin (Zithromax Z-Sunny) For 250 mg dose pack: take 500 mg today (day 1), then 250 mg for 4 days (days 2-5) PO carvedilol 25 mg PO BID 30 days cholecalciferol (vitamin D3) 50 mcg PO DAILY 90 days clonidine patches transdermal fenofibrate 120 mg PO DAILY 30 days gabapentin 300 mg PO TID PRN hydralazine 100 mg PO BID 30 days insulin glargine (Lantus Solostar U-100 Insulin) 50 units (0.5 mL) subcut BID 30 days insulin lispro 1 sliding scale dose subcut USEASDIRECTD losartan-hydrochlorothiazide 100-25 mg 1 tab PO DAILY ranolazine ER 500 mg PO BID 30 days rosuvastatin (Crestor) 40 mg PO DAILY 30 days torsemide 20 mg PO DAILY 30 days Tobacco use date assessed: 04/07/24 Fall risk assessment: 2 + Falls in past year Last assessed Fall Risk: 04/07/24 Dental Screening Dental Screen Date: 04/07/24 Did you have a dental visit in the last 12 months?: Yes Did you have a dental problem in the last 6 months where you did not have access to dental care?: No Was dental information given to patient?: Patient has dentist HPI HPI Comments History of Present Illness Details 69-year-old male presents for hypertension and diabetes follow-up He admits to taking his medications as prescribed without adverse reactions Reports chronic intermittent left shoulder and low back pain especially at night. He was taking an old script of vicodin which he recently ran out of. No tingling, numbness, or loss of sensation. He has had multiple course of physical therapy without improvement. He notes h/o torn rotator cuff bilaterally. He notes that he does not want surgery and states i'm too old for surgery. He reports surgical repair to repair herniated discs in his lumbar spin in the 1980s. He attributes loss of sensation to his feet to low back pain. He notes that Tylenol does not improve his pain and that cyclobenzaprine was effective. He is willing to be referred to physiatry for pain management. He is followed by cardiology at [place] and [facility]. His last appointment was on 02/27/2024. He was advised to follow-up in 3 months He is followed by nephrology at [facility]. He has a follow up appointment this week He is also followed by endocrinology at [facility] Medical History (Updated 04/07/24 @ 10:39 by Tramaine Calzada [facility]) Heart murmur Chronic kidney disease, stage 3 Edema Back disorder Arthritis Diabetes Congestive heart disease High cholesterol High blood pressure Sinusitis Melanoma Hernia Surgical History Hx of biopsy History of ankle surgery H/O vasectomy History of back surgery Hx of appendectomy H/O heart bypass surgery Family History Father High blood pressure Cardiovascular disease Paternal Grandfather Cardiovascular disease Social History Housing: Apartment Patient Tobacco Use Status: Never used Tobacco e-Cigarette/Vaping Use: Never Used service: No Current occupational status: employed 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 1. Little interest or pleasure in doing things: nearly every day 2. Feeling down, depressed, or hopeless: more than half the days 3. Trouble falling or staying asleep, or sleeping too much: nearly every day 4. Feeling tired or having little energy: nearly every day 5. Poor appetite or overeating: not at all 6. Feeling bad about yourself - or that you are a failure or have let yourself or your family down: not at all 7. Trouble concentrating on things, such as reading the newspaper or watching television: not at all 8. Moving or speaking so slowly that other people could have noticed. Or the opposite - being so fidgety or restless that you have been moving around a lot more than usual: not at all 9. Thoughts that you would be better off or of hurting yourself in some way: not at all Total score: 11 25288 - PHQ-9 Billing: Yes Source: Developed by Drs. Francisco J Berkowitz, Jeniffer Chen, Bryan Sofia and colleagues, with an educational dayo from [employer]. Thrive Questionnaire Date Thrive assessed: 09/24/23 MENDOZA-7 AMB Questionnaire MENDOZA-7 Date MENDOZA - 7 assessed: 09/24/23 Source: Developed by Drs. Francisco J Berkowitz, Jeniffer Chen, Bryan Sofia and colleagues, with an educational dayo from [employer]. Review of Systems Const Details: Const Denies chills, Denies fatigue, Denies fever(s), Denies headache(s) and Denies weakness ENT Denies dizziness and Denies headache(s) Card Denies chest pain, Denies lightheadedness, Denies dyspnea and Denies other (Palpitations) Resp Denies cough, Denies dyspnea, Denies wheezing and Denies other ( shortness of breath) GI Denies abdominal pain, Denies melena, Denies hematochezia, Denies change in bowel habits, Denies dyspepsia and Denies nausea Denies hematuria and Denies dysuria Musc Denies abnormal gait, Denies myalgias, Denies arthralgias, Denies numbness and Denies tingling Skin/Breast Denies rash, Denies unusual bruising and Denies wounds Neuro Denies abnormal gait, Denies dizziness, Denies headache(s), Denies memory loss, Denies numbness, Denies Sensory deficit (Neuro), Denies tingling and Denies weakness Psych Denies anxiety, Denies depression, Denies memory loss Endo Denies cold intolerance, Denies fatigue, Denies heat intolerance, Denies polydipsia and Denies polyuria Aller/Immun Denies wheezing Physical exam (Primary Care) Vital Signs: Last Vital Signs Temp 98.0 F 04/07/24 09:51 Pulse 80 04/07/24 09:51 Resp 16 04/07/24 09:51 BP 94/64 04/07/24 09:51 Pulse Ox 97 04/07/24 09:51 BMI result Body Mass Index 35.3 Tobacco/Smoking Status: Tobacco use Status Tobacco use date assessed 04/07/24 04/07/24 09:50 Patient Tobacco Use Status Never used Tobacco 04/07/24 09:47 Tobacco use type 03/27/23 15:41 e-Cigarette/Vaping Use Never Used 04/07/24 09:47 PHQ-9: PHQ-9 Score PHQ-9: Total score 11 04/07/24 09:56 Thrive Assessment: Date of Thrive Assessment Date Thrive assessed 09/24/23 04/07/24 09:47 Const Other: General: no acute distress and well developed Nutritional Appearance: well nourished Orientation/consciousness: patient oriented x3 HENMT Head: Yes normocephalic and Yes atraumatic Eyes General: appearance normal, both eyes and all related structures Pupils: Equal, round and reactive pupils present EOM: EOMs intact bilaterally Resp Effort & Inspection: normal respiratory effort Auscultation: clear to auscultation bilaterally Cardio Rate: regular rate Rhythm: regular rhythm Heart sounds: S1 normal heart sound present, S2 normal heart sound present, no gallops, murmurs present and no rubs GI Palpation (GI): No Abdominal aortic bruit present, Soft to palpation, nontender, No hepatosplenomegaly present and No Rebound tenderness present Auscultation: normal bowel sounds General: Yes no CVA tenderness Back/Spine/Pelvis Back: no CVA tenderness Cervical Spine: cervical ROM normal and No Cervical spine tenderness Thoracic/Lumbar Spine: thoraco-lumbar ROM normal, No pain with thoraco-lumbar ROM, No thoracic spinal tenderness and No lumbar spinal tenderness Extrem General: Yes normal to inspection, No edema and No calf tenderness Skin General: warm and dry. Normal skin color. Normal skin turgor Neuro General: patient oriented x3, gait normal and no focal neuro deficit Cranial nerves: Yes Equal, round and reactive pupils present Cognition (Neuro): normal cognition Gait exam (Neuro): Normal gait present Sensory Exam: No Sensory deficit (Neuro) Psych Appearance: grossly normal Affect: normal affect Attitude: cooperative Thought process: Normal thought process present Assessment and Plan Assessment & Plan (1) High blood pressure: Code(s): I10 - Essential (primary) hypertension Qualifiers: Hypertension type: primary hypertension Qualified Code(s): I10 - Essential (primary) hypertension Plan: Resting blood pressure is 100/60, within goal of less than 130/80 Continue current treatment regimen Low-sodium diet encouraged Follow-up with cardiology as planned Return in 3 months or sooner with symptoms or concerns Verbalized understanding and agreed with the plan (2) Type 2 diabetes mellitus with diabetic neuropathy: Code(s): E11.40 - Type 2 diabetes mellitus with diabetic neuropathy, unspecified Plan: A1c today is 6.6% via patient's Dexcom monitor, within goal of less than 7.0%. Previous A1c was 6.4% Continue with current treatment regimen ADA diet and routine exercise encouraged Follow-up with endocrinology next month as planned Recent LDL is 48; microalbumin/creatinine ratio is elevated, 578.5; previous level was 875.9 Follow-up in 3 months Verbalized understanding and agreed with treatment plan (3) High cholesterol: Code(s): E78.00 - Pure hypercholesterolemia, unspecified Plan: Recent triglycerides level is elevated, 284. Total cholesterol and HDL levels are normal, 127 and 48 respectively. HDL level is slightly low, 23 Will increase fenofibrate from 120 mg daily to 160 mg daily. Advised to take as prescribed Encouraged to limit foods high in saturated fat and avoid foods high in trans fat Routine exercise encouraged Advised to follow-up with Nephrology as planned and inform provider regarding recent medication change Advised to fast for 10-12 hours, may drink water only, and get lipid panel blood work done before his next visit. Will also check liver function as that has not been checked in a while Follow-up in 3 months Verbalized understanding and agreed with treatment plan (4) Chronic low back pain: Code(s): M54.50 - Low back pain, unspecified; G89.29 - Other chronic pain Plan: Reports chronic, intermittent left shoulder pain due to rotator cuff issues and chronic back pain due to h/o herniated disc, especially at night. He had back surgery in 1980s. No numbness, tingling, or loss of sensation. She notes loss of sensation to his feet due to herniated disc. He was taking an oldl script of Vicodin which he recently ran out. He has had series of physical therapy without improvement. Tylenol does not provide relief. However, he had some improvement with cyclobenzaprine. Will order cyclobenzaprine 10 mg twice daily as needed and tramadol 50 mg at bedtime as needed. Instructed on the risks, benefits, and potential adverse reactions of the medications. Encouraged to take the medications as prescribed. Referred to physiatry. Advised to follow-up with worsening or new symptoms. He verbalized understanding and agreed with treatment plan. (5) Chronic left shoulder pain: Code(s): M25.512 - Pain in left shoulder; G89.29 - Other chronic pain Plan: As above Orders: Orders Liver Panel 3 Months E78.00 - Pure hypercholesterolemia, unspecified Lipid Panel 3 Months E78.00 - Pure hypercholesterolemia, unspecified Referrals Physiatry Referral G89.29 - Other chronic pain, M25.512 - Pain in left shoulder, M54.50 - Low back pain, unspecified Medications: New cyclobenzaprine 10 mg PO BID PRN 30 tabs 0RF muscle spasm fenofibrate 160 mg PO DAILY 30 days 30 tabs 3RF tramadol 50 mg PO BEDTIME PRN 30 tabs 0RF pain Discontinued fenofibrate Discontinued Reason: Doctor's Order 120 mg PO DAILY 30 days 30 tabs 3RF Coding Level of Care Code Est Pt Level 4 (08561) Complex EM visit Add On G2211 Diagnoses Primary hypertension I10 Hypertension type: primary hypertension Type 2 diabetes mellitus with diabetic neuropathy E11.40 High cholesterol E78.00 Chronic low back pain M54.50; G89.29 Chronic left shoulder pain M25.512; G89.29
[2024-04-07 09:51] VITALS: BP 94/64; PULSE 80; RESP 16; TEMP 36.7; O2SAT 97; BMI 35.3
[2024-04-07 10:24] VITALS: BP 100/60
== END 2024-04-07 10:34 | disposition home or self-care (01) ==
PROVIDERS: PCP Nurse Practitioner Family; Visit Provider Nurse Practitioner Family
DX: I10 Essential (primary) hypertension (principal); E11.40 Type 2 diabetes mellitus with diabetic neuropathy, unspecified; E78.00 Pure hypercholesterolemia, unspecified; M54.50 Low back pain, unspecified; G89.29 Other chronic pain; M25.512 Pain in left shoulder
CPT/HCPCS: 99214; G2211

== ENCOUNTER 2024-05-08 14:19 | Outpatient (REF) | payer MEDICARE, SELFPAY | END 2024-05-08 14:20 | disposition home or self-care (01) | LOC: HO.HOSX 14:19 | PROVIDERS: Visit Provider Orthopaedic Surgery | DX: Z13.89 Encounter for screening for other disorder (principal) ==

== ENCOUNTER 2024-05-16 08:16 | Outpatient (REF) | payer MEDICARE, SELFPAY ==
[2024-05-16 12:33] LABS: Estimated Glomerular Filt Rate 10
[2024-05-16 12:46] LABS: HBS Num1 0.35 mIU/mL (0-7.99); HBsAGNum1 0.26 S/CO (0.00-0.99); Hepatitis B Surface Antigen Negative (Negative); ~Hepatitis B Surface Antibody NONREACTIVE (Nonreactive)
== END 2024-05-16 08:17 | disposition home or self-care (01) ==
LOC: HO.WFDLDS 08:16
PROVIDERS: Visit Provider Internal Medicine Nephrology
DX: N18.6 End stage renal disease (principal)
CPT/HCPCS: 36415; 82565; 86706; 87340

== ENCOUNTER 2024-07-08 08:42 | Outpatient (AMB) | payer MEDICARE, SELFPAY ==
--- NOTE | 2024-07-08 08:49 | MHC.PC.OV ---
Vital Signs 07/08/24 08:55 07/08/24 09:29 Height 6 ft 2 in Weight 170 lb BMI 21.8 BP 138/42 L 110/60 Blood Pressure Location Rt brachial Rt brachial Position Sitting Sitting Respiration 16 Pulse 73 Pulse Source Pulse Oximeter Temp 98.2 F Temp Source Oral Pulse Oximetry (%) 99 Oxygen Delivery Method Room Air Intake Visit Reasons: 3 mos HTN, DM, and HLD Intake Note: patient here for 3 moth follow up on HTN, DM, HLD Fish Seiner Required: No Allergies Sulfa (Sulfonamide Antibiotics) Allergy (Intermediate, Verified 07/08/24 09:17) Swelling Latex, Natural Rubber Allergy (Mild, Verified 07/08/24 09:17) Redness of Skin grapefruit Adverse Reaction (Unknown, Uncoded 07/08/24 09:17) Unknown Medication List - Last Reconciled 07/08/24 by Tramaine Calzada CNP allopurinol 300 mg PO DAILY 90 days aspirin (Adult Low Dose Aspirin) 81 mg PO DAILY carvedilol 25 mg PO BID 30 days cholecalciferol (vitamin D3) 50 mcg PO DAILY 90 days clonidine patches transdermal cyclobenzaprine 10 mg PO BID PRN fenofibrate 160 mg PO DAILY 30 days gabapentin 300 mg PO TID PRN insulin glargine (Lantus Solostar U-100 Insulin) 50 units (0.5 mL) subcut BID 30 days insulin lispro 1 sliding scale dose subcut USEASDIRECTD isosorbide mononitrate ER 30 mg PO BID 90 days losartan-hydrochlorothiazide 100-25 mg 1 tab PO DAILY ranolazine ER 500 mg PO BID 30 days rosuvastatin (Crestor) 40 mg PO DAILY 30 days torsemide 20 mg PO DAILY 30 days tramadol 50 mg PO BEDTIME PRN Tobacco use date assessed: 07/08/24 Fall risk assessment: 2 + Falls in past year Last assessed Fall Risk: 07/08/24 Dental Screening Dental Screen Date: 07/08/24 Did you have a dental visit in the last 12 months?: No Did you have a dental problem in the last 6 months where you did not have access to dental care?: No Was dental information given to patient?: Patient has dentist HPI HPI Comments History of Present Illness Details 69-year-old male presents for diabetes, hypertension, and hyperlipidemia follow-up He admits to taking his medications as prescribed without adverse reactions He notes that he has been making healthy lifestyle changes He notes slight persistent frontal headache, green nasal discharge and postnasal drip for the past 2 weeks. He has been performing nasal saline rinses. He notes history of sinus infection during this time of the year He has had a wound to the bottom of his right foot for about a month. He is followed by the wound clinic in [place] every 2 weeks. The wound was initially a quarter-size but is now an eraser size. He performs wound care daily and apply dressing to the wound. The wound currently has dressing. He did not get fasting lipid panel blood work done as planned for this visit He is followed by endocrinology at [facility] every 3 months. 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 He has a follow up appointment this week. He notes that he started home dialysis about a week ago He is followed by cardiology at [facility]. He notes that he will have a replacement of his heart valve sometimes next year [facility] Medical History (Updated 07/08/24 @ 09:51 by Tramaine Calzada [facility]) Heart murmur Chronic kidney disease, stage 3 Edema Back disorder Arthritis Diabetes Congestive heart disease High cholesterol High blood pressure Sinusitis Melanoma Hernia Surgical History Hx of biopsy History of ankle surgery H/O vasectomy History of back surgery Hx of appendectomy H/O heart bypass surgery Family History Father High blood pressure Cardiovascular disease Paternal Grandfather Cardiovascular disease Social History Housing: Apartment Patient Tobacco Use Status: Never used Tobacco e-Cigarette/Vaping Use: Never Used service: No Current occupational status: employed 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 1. Little interest or pleasure in doing things: several days 2. Feeling down, depressed, or hopeless: several days 3. Trouble falling or staying asleep, or sleeping too much: nearly every day 4. Feeling tired or having little energy: several days 5. Poor appetite or overeating: not at all 6. Feeling bad about yourself - or that you are a failure or have let yourself or your family down: not at all 7. Trouble concentrating on things, such as reading the newspaper or watching television: not at all 8. Moving or speaking so slowly that other people could have noticed. Or the opposite - being so fidgety or restless that you have been moving around a lot more than usual: not at all 9. Thoughts that you would be better off or of hurting yourself in some way: not at all Total score: 6 Depression Screening Done: Yes 75524 - PHQ-9 Billing: Yes Source: Developed by Drs. Francisco J Berkowitz, Jeniffer Chen, Bryan Sofia and colleagues, with an educational dayo from [employer]. Thrive Questionnaire Date Thrive assessed: 07/08/24 I am a: Patient What is your living situation today?: I have a steady place to live Within the past 12 months, did the food you bought not last and you didn't have the money to get more?: Often true Within the past 12 months, did you worry whether your food would run out before you got money to buy more?: Often true Do you have trouble paying for medicines?: No Do you have trouble getting transportation to medical appointments?: No Do you have trouble paying your heating and electricity bill?: No Do you have trouble taking care of your child, family member or friend?: No Do you have trouble with day-to-day activities such as bathing, preparing meals, shopping, managing finances, etc.?: No Are you currently unemployed and looking for a job?: Yes Are you interested in more education?: No Please select the resources that you would like help with: Housing/Skilled Nursing and Food Currently or been in a relationship where the following occur: No concerns reported THRIVE Score: 2 AUDIT C Alcohol Use Questionnaire (AUDIT-C) 1. How often do you have a drink containing alcohol?: Monthly or less 2. How many drinks containing alcohol do you have on a typical day when you are drinking?: 1 or 2 3. How often do you have six or more drinks on one occasion?: Never Total Score: 1 Score Reviewed/Action Taken: Yes MENDOZA-7 AMB Questionnaire MENDOZA-7 Date MENDOZA - 7 assessed: 07/08/24 Feeling nervous, anxious, or on edge: 1 = Several days Not being able to stop or control worryin = Not at all Worrying too much about different things: 1 = Several days Trouble relaxin = Not at all Being so restless that it is hard to sit still: 0 = Not at all Becoming easily annoyed or irritable: 0 = Not at all Feeling afraid as if something awful might happen: 0 = Not at all Total MENDOZA-7 score (0-4 normal; 5-9 mild; 10-14 moderate; 15-21 severe): 2 Source: Developed by Drs. Francisco J Berkowitz, Jeniffer Chen, Bryan Sofia and colleagues, with an educational dayo from [employer]. Review of Systems Const Details: Const Denies chills, Denies fatigue, Denies fever(s), Reports headache(s) and Denies weakness ENT Reports as per HPI Card Denies chest pain, Denies lightheadedness, Denies dyspnea and Denies other (Palpitations) Resp Denies cough, Denies dyspnea, Denies wheezing and Denies other ( shortness of breath) GI Denies abdominal pain, Denies melena, Denies hematochezia, Denies change in bowel habits, Denies dyspepsia and Denies nausea Denies hematuria and Denies dysuria Musc Denies abnormal gait, Denies myalgias, Denies arthralgias, Denies numbness and Denies tingling Skin/Breast Reports as per HPI Neuro Denies abnormal gait, Denies dizziness, Reports headache(s), Denies memory loss, Denies numbness, Denies Sensory deficit (Neuro), Denies tingling and Denies weakness Psych Denies anxiety, Denies depression, Denies memory loss Endo Denies cold intolerance, Denies fatigue, Denies heat intolerance, Denies polydipsia and Denies polyuria Aller/Immun Denies wheezing Physical exam (Primary Care) Vital Signs: Last Vital Signs Temp 98.2 F 07/08/24 08:55 Pulse 73 07/08/24 08:55 Resp 16 07/08/24 08:55 BP 138/42 L 07/08/24 08:55 Pulse Ox 99 07/08/24 08:55 Oxygen Delivery Method Room Air 07/08/24 08:55 BMI result Body Mass Index 21.8 Tobacco/Smoking Status: Tobacco use Status Tobacco use date assessed 07/08/24 07/08/24 09:00 Patient Tobacco Use Status Never used Tobacco 07/08/24 08:49 Tobacco use type 03/27/23 15:41 e-Cigarette/Vaping Use Never Used 07/08/24 08:49 PHQ-9: PHQ-9 Score PHQ-9: Total score 6 07/08/24 09:00 Thrive Assessment: Date of Thrive Assessment Date Thrive assessed 07/08/24 07/08/24 09:00 Currently or been in a relationship where the following occur: No concerns reported Const Other: General: no acute distress and well developed Nutritional Appearance: well nourished Orientation/consciousness: patient oriented x3 HENMT Head is normocephalic Bilateral ear canal and TM are normal Nasal turbinates her pink and dry. Oropharynx are pink and moist Left maxillary sinus tenderness to palpation No auricular or cervical lymphadenopathy Eyes General: appearance normal, both eyes and all related structures Pupils: Equal, round and reactive pupils present EOM: EOMs intact bilaterally Resp Effort & Inspection: normal respiratory effort Auscultation: clear to auscultation bilaterally Cardio Rate: regular rate Rhythm: regular rhythm Heart sounds: S1 normal heart sound present, S2 normal heart sound present, no gallops, +murmurs and no rubs GI Palpation (GI): No Abdominal aortic bruit present, Soft to palpation, nontender, No hepatosplenomegaly present and No Rebound tenderness present Auscultation: normal bowel sounds General: Yes no CVA tenderness Back/Spine/Pelvis Back: no CVA tenderness Extrem General: Yes normal to inspection, No edema and No calf tenderness Skin General: warm and dry. Normal skin color. Normal skin turgor Lesions: no lesions Rashes: no rashes Trauma: no lacerations or abrasions Wounds: Clean, dry, and intact, dressing to wound on the bottom of right foot Nails: normal Neuro General: patient oriented x3, gait normal and no focal neuro deficit Cranial nerves: Yes Equal, round and reactive pupils present Cognition (Neuro): normal cognition Gait exam (Neuro): Normal gait present Sensory Exam: No Sensory deficit (Neuro) Psych Appearance: grossly normal Affect: normal affect Attitude: cooperative Thought process: Normal thought process present Coding Level of Care Code Est Pt Level 4 (42116) Complex EM visit Add On G2211 Diagnoses Type 2 diabetes mellitus with diabetic neuropathy E11.40 Primary hypertension I10 Hypertension type: primary hypertension High cholesterol E78.00 Wound of right foot S91.301A Sinusitis J32.9 Laboratory tests ordered as part of a complete physical exam (CPE) Z00.00 Assessment & Plan Assessment & Plan (1) Type 2 diabetes mellitus with diabetic neuropathy: Code(s): E11.40 - Type 2 diabetes mellitus with diabetic neuropathy, unspecified Category: Medical Plan: He is followed by endocrinology. He notes that his recent A1c was 6.0% Advised to continue current treatment regimen ADA diet and routine exercise encouraged Follow-up with endocrinology as planned Verbalized understanding and agreed with the treatment plan (2) High blood pressure: Code(s): I10 - Essential (primary) hypertension Category: Medical Qualifiers: Hypertension type: primary hypertension Qualified Code(s): I10 - Essential (primary) hypertension Plan: Resting blood pressure is 110/60, within goal of less than 130/80 Continue current treatment regimen Low-sodium diet encouraged Follow-up in 1 month for hypertension and an extended physical exam or sooner with symptoms or concerns Verbalized understanding and agreed with the treatment plan (3) High cholesterol: Code(s): E78.00 - Pure hypercholesterolemia, unspecified Category: Medical Plan: He going to get blood work done as planned for this visit but notes that 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 Records not available. Advised to sign a release for his PCP to obtain records from his specialists Encouraged to get fasting lab work, including lipid panel, a few days before his next visit Continue current treatment regimen Advised to limit foods high in saturated fat and avoid foods high in trans fat Routine exercise encouraged Verbalized understanding and agreed with the treatment plan (4) Wound of right foot: Code(s): S91.301A - Unspecified open wound, right foot, initial encounter Category: Medical Plan: Reports erazer size wound to the bottom of his right foot x1 month. He is followed by the wound clinic in [place] every 2 weeks. He has been performing wound care and apply dressing changes daily Clean, dry, and intact, dressing to wound on the bottom of right foot Advised to continue current treatment regimen Continue follow-up with the Wound Clinic as planned Verbalized understanding and agreed with treatment plan (5) Sinusitis: Code(s): J32.9 - Chronic sinusitis, unspecified Category: Medical Plan: He has been experiencing slight persistent frontal headache, green nasal discharge and postnasal drip for the past 2 weeks. He has history of sinus infection during this time of the year Nasal turbinates are pink and dry. Left maxillary sinus tenderness to palpation Z-Sunny ordered. Advised to take as prescribed. Instructed on the risks, benefits, and potential adverse reactions of the medications May take Tylenol as needed for pain or discomfort Continue with nasal saline rinse as needed Follow-up with worsening or new symptoms Verbalized understanding and agreed with the treatment plan (6) Laboratory tests ordered as part of a complete physical exam (CPE): Code(s): Z00.00 - Encounter for general adult medical examination without abnormal findings Category: Medical Plan: Fasting labs ordered as part of a complete physical exam. Advised to fast for at least 10 hours before getting labs drawn. May drink water Verbalized understanding and agreed with treatment plan. Orders: Orders Complete Blood Count Auto Diff Today Z00.00 - Encounter for general adult medical examination without abnormal findings TSH reflex Free T4 Today Z00.00 - Encounter for general adult medical examination without abnormal findings UA CC w/rflx Micro + Cult Today Z00.00 - Encounter for general adult medical examination without abnormal findings PSA, Ultra Sensitive Today Z00.00 - Encounter for general adult medical examination without abnormal findings Comprehensive [place]. Panel Fast Today Z00.00 - Encounter for general adult medical examination without abnormal findings Vitamin D 25-OH Total Today Z00.00 - Encounter for general adult medical examination without abnormal findings Medications: New azithromycin (Zithromax Z-Sunny) For 250 mg dose pack: take 500 mg today (day 1), then 250 mg for 4 days (days 2-5) PO 6 tabs 0RF
[2024-07-08 08:55] VITALS: BP 138/42; PULSE 73; RESP 16; TEMP 36.8; O2SAT 99; BMI 21.8
[2024-07-08 09:29] VITALS: BP 110/60
== END 2024-07-08 09:45 | disposition home or self-care (01) ==
LOC: HO.HMCFM 08:43
PROVIDERS: PCP Nurse Practitioner Family; Visit Provider Nurse Practitioner Family
DX: E11.40 Type 2 diabetes mellitus with diabetic neuropathy, unspecified (principal); I10 Essential (primary) hypertension; E78.00 Pure hypercholesterolemia, unspecified; S91.301A Unspecified open wound, right foot, initial encounter; J32.9 Chronic sinusitis, unspecified; Z00.00 Encounter for general adult medical examination without abnormal findings

== ENCOUNTER → 2024-07-08 08:42 | Outpatient (BNVA) | payer MEDICARE, SELFPAY | PROVIDERS: PCP Nurse Practitioner Family; Visit Provider Nurse Practitioner Family | DX: Z00.00 Encounter for general adult medical examination without abnormal findings (principal); E11.40 Type 2 diabetes mellitus with diabetic neuropathy, unspecified; I10 Essential (primary) hypertension; E78.00 Pure hypercholesterolemia, unspecified; J32.9 Chronic sinusitis, unspecified; S91.301A Unspecified open wound, right foot, initial encounter | CPT/HCPCS: 99212 ==

== ENCOUNTER 2024-09-16 10:36 | Outpatient (AMB) | payer MEDICARE, SELFPAY ==
--- NOTE | 2024-09-16 10:36 | AM.OFFWIN_ITS ---
Intake Vital Signs 09/16/24 10:43 Height 6 ft 2 in Weight 273 lb BMI 35.0 BP 124/68 Blood Pressure Location Lt brachial Position Sitting Respiration 13 Pulse 68 Pulse Source Pulse Oximeter Pulse Oximetry (%) 94 Oxygen Delivery Method Simple Mask Intake Visit Reasons: sinus infection Intake Note: Patient complaining of dark green mucus, head congestion, coughing, and bodyaches x 1 month but in the last week got worse. Patient Tobacco Use Status: Never used Tobacco Allergies Sulfa (Sulfonamide Antibiotics) Allergy (Intermediate, Verified 09/16/24 11:08) Swelling Latex, Natural Rubber Allergy (Mild, Verified 09/16/24 11:08) Redness of Skin grapefruit Adverse Reaction (Unknown, Uncoded 09/16/24 11:08) Unknown Medication List - Last Reconciled 09/16/24 by Francesca Fried, [facility] allopurinol 300 mg PO DAILY 90 days aspirin (Adult Low Dose Aspirin) 81 mg PO DAILY azithromycin (Zithromax Z-Sunny) For 250 mg dose pack: take 500 mg today (day 1), then 250 mg for 4 days (days 2-5) PO azithromycin (Zithromax Z-Sunny) For 250 mg dose pack: take 500 mg today (day 1), then 250 mg for 4 days (days 2-5) PO carvedilol 25 mg PO BID 30 days cholecalciferol (vitamin D3) 50 mcg PO DAILY 90 days clonidine patches transdermal cyclobenzaprine 10 mg PO BID PRN fenofibrate 160 mg PO DAILY 30 days gabapentin 300 mg PO TID PRN insulin glargine (Lantus Solostar U-100 Insulin) 50 units (0.5 mL) subcut BID 30 days insulin lispro 1 sliding scale dose subcut USEASDIRECTD isosorbide mononitrate ER 30 mg PO BID 90 days losartan-hydrochlorothiazide 100-25 mg 1 tab PO DAILY ranolazine ER 500 mg PO BID 30 days rosuvastatin (Crestor) 40 mg PO DAILY 30 days torsemide 20 mg PO DAILY 30 days tramadol 50 mg PO BEDTIME PRN Do you need a note to return to daycare/school/sports/work: No HPI HPI Comments History of Present Illness Details History of Present Illness The patient is a 69-year-old male presenting with complaints of dark green mucus, head congestion, coughing, and body aches for a duration of one month. O dmitri the past week, symptoms have exacerbated. The patient reports frequent expulsion of hard green mucus, approximately a teaspoon every 30 to 45 minutes. In the preceding month, interventions have included rinsing with a neti pot, which provides temporary relief. Recently, the patient developed a cough but denies any issues with breathing. The patient is not on any current antibiotics and has a history of receiving azithromycin in July. In terms of preventative measures, the patient has not received the seasonal influenza vaccine. He mentions dialysis treatment, occurring every day. Exam Awake alert NAD Sclera and conjunctiva clear bilat Nares with thick mucoid d/c, turbinates pale and edematous bilat, + right frontal and max sinus tenderness with palpation TM intact and clear on left, + congestion on L MMM, pharynx + PND RRR LS CTAB, dry cough noted during exam w/o distress Plan - Initiate low-dose Amoxicillin for ney n days, dosed twice daily, considering renal safety for dialyzed patients. - Inform the patient to maintain medicat ion adherence, consume with food to avoid gastrointestinal disturbance. - Advise that symptomatic improvement sh ould start within 48 hours, while completing the entire antibiotic course. - Maintain supportive care measures, suc h as continued use of nasal saline irrigations, to facilitate mucus clearance. - Counseling provided regarding the betsy gement of dialysis and antibiotic timing to ensure medication efficacy. - RTO edu provided. Patient was informed and verbally consented to the use of an ambient scribe for clinic note documentation during this visit. [facility] Medical History (Updated 07/08/24 @ 09:51 by Tramaine Calzada CNP) Heart murmur Chronic kidney disease, stage 3 Edema Back disorder Arthritis Diabetes Congestive heart disease High cholesterol High blood pressure Sinusitis Melanoma Hernia Surgical History Hx of biopsy History of ankle surgery H/O vasectomy History of back surgery Hx of appendectomy H/O heart bypass surgery Family History Father High blood pressure Cardiovascular disease Paternal Grandfather Cardiovascular disease Social History Housing: Apartment Patient Tobacco Use Status: Never used Tobacco e-Cigarette/Vaping Use: Never Used service: No Current occupational status: employed 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 Medications: New amoxicillin-pot clavulanate 500-125 mg 1 tab PO BID 7 days 14 tabs 0RF Refilled azithromycin (Zithromax Z-Sunny) For 250 mg dose pack: take 500 mg today (day 1), then 250 mg for 4 days (days 2-5) PO 6 tabs 0RF Coding Level of Care Code Est Pt Level 3 (57952) Diagnoses Acute bacterial sinusitis J01.90; B96.89
[2024-09-16 10:43] VITALS: BP 124/68; PULSE 68; RESP 13; O2SAT 94; BMI 35.0
--- OUTSIDE RECORDS SUMMARY | 2024-09-16 12:22 | XMS_ITS | Continuity of Care Document ---
Author Organization [facility] [address] [place] [address] Phone [phone] Care Team Providers Care Interactive Art Director Name Role Phone Elsi Redd CNP Care Team Information Receive r [phone] Problems Active Problems Provider Date Chronic kidney disease Evan Lopez M.D. O nset: 01/30/2024 Edema Evan Lopez M.D. Onset: 0 01/30/2024 Hypercholesterolemia Evan Lopez M.D. Ons et: 01/30/2024 Essential hypertension Evan Lopez M.D. O nset: 01/30/2024 Malignant melanoma Evan Lopez M.D. Onset : 01/30/2024 Congestive heart failure Evan Lopez M.D. Onset: 01/30/2024 Type 2 diabetes mellitus Evan Lopez M.D. Onset: 01/30/2024 Social History Type Date Description Comments Sex Unknown Tobacco Use Start: Unknown Never Smoked Cigarettes ETOH Use Rarely consumes alcohol Allergies and adverse reactions Active Allergies Criticality Reaction Severity Comments Date Sulfamethoxazole Unable to assess criticality 01/30/2024 Medications Active Medications SIG Qnty Indications Order ing Provider Date Rosuvastatin Alamqst71vb Tablets Take 1 Tablet By Mouth Daily Elsi Redd CNP Sshhzeitn28uq Tablets Take 1 Tablet By Mouth Daily Elsi Redd CNP Iaizllmkea30bg Tablets Take 1 Tablet By Mouth Twice Daily - Must Take With Meal / Food Elsi Redd CNP Isosorbide Mononitrate ER30mg Tablets ER 24HR Take 1 Tablet By Mouth Twice A Day Unknown Lantus Aoxyxtfj567Fcae/ML Solution Pen-Inject Inject 80 Units Subcutaneously Twice Daily 45ml Evan Lopez M.D. Ketcunhlxwo283sn Tablets Take 1 Tablet By Mouth Daily Elsi Redd CNP Insulin Lispro (1 Unit Dial)100Unit/ML Solution Pen-Inject inject up to 25 units four times daily 45ml Evan Lopez M.D. Ezeuldroeta441di Tablets 1 by mouth every day 90tabs Unknown 000 Ranolazine TJ038rn Tablets ER 12HR Take 1 Tablet By Mouth Twice Daily Elsi Redd CNP Yitmgbfdqn675od Capsules Unknown Losartan Potassium/Hydrochlo [id number] Tablets Take 1 Tablet By Mouth Every Day Unknown Vital Signs Date Vital Result Comment 05/07/2024 1:04pm BP Systolic 130 mmHg BP Diastolic 80 mmHg Heart Rate 72 /min Height 73 inches 6'1 Weight 273.25 lb BMI (Body Mass Index) 36.0 kg/m2 Results Test Acquired Date Facility Test Result [facility] [place] Laboratory test finding 08/13/2024 Inhouse Glucose Fingerstick 67 Hemoglobin A1c 6.2% Laboratory test finding 05/07/2024 Inhouse Glucose Fingerstick 104 Procedures Date Code Description Status 05/07/2024 39932 Glucose Monitoring Interpeta tion And Report Completed Medical Devices Description No Information Available Encounters Type Date Location Provider Dx Diagnosis Office Visit 08/13/2024 1:15p Main Office Evan Lopez M.D. E11.8 Type 2 diabetes mellitus with unspecified complications N18.6 End stage renal dise ase Z99.2 Dependence on renal dialysis Assessments Date Code Description Provider 08/13/2024 E11.8 Type 2 diabetes mellitus with unspecified complications Evan Lopez M.D. 08/13/2024 N18.6 End stage renal disease Evan Lopez M.D. 08/13/2024 Z99.2 Dependence on renal dialysis Evan Lopez M.D. Plan of Treatment Future Appointment(s):* 12/24/2024 1:30 pm - Evan Lopez M.D. at Main Office 08/13/2024 - Evan Vanderleeden, M.D.* E11.8 Type 2 diabetes mellitus with unspecified complications * N18.6 End stage renal disease * Z99.2 Dependence on renal dialysis Functional Status Description No Information Available Mental Status Description No Information Available Referrals Description No Information Available
== END 2024-09-16 11:16 | disposition home or self-care (01) ==
LOC: HO.HMCWIW 10:36
PROVIDERS: PCP Nurse Practitioner Family; Visit Provider Nurse Practitioner Family
DX: J01.90 Acute sinusitis, unspecified (principal); B96.89 Other specified bacterial agents as the cause of diseases classified elsewhere

== ENCOUNTER → 2024-09-16 10:36 | Outpatient (BNVA) | payer MEDICARE, SELFPAY | PROVIDERS: PCP Nurse Practitioner Family; Visit Provider Nurse Practitioner Family | DX: J01.90 Acute sinusitis, unspecified (principal); B96.89 Other specified bacterial agents as the cause of diseases classified elsewhere | CPT/HCPCS: 99212 ==

== ENCOUNTER 2024-10-10 09:01 | Outpatient (AMB) | payer MEDICARE, SELFPAY ==
--- NOTE | 2024-10-10 09:07 | MHC.PC.OV ---
Vital Signs 10/10/24 09:15 10/10/24 09:46 Height 6 ft 2 in Weight 262 lb BMI 33.6 BP 142/64 H 134/60 Blood Pressure Location Rt brachial Rt brachial Position Sitting Sitting Respiration 16 Pulse 88 Pulse Source Pulse Oximeter Temp 98.6 F Temp Source Oral Pulse Oximetry (%) 96 Oxygen Delivery Method Room Air Intake Visit Reasons: [facility] re: High b/p Intake Note: patient here for hospital DCF high blood pressure Manager [employer] Required: No Allergies Sulfa (Sulfonamide Antibiotics) Allergy (Intermediate, Verified 10/10/24 09:31) Swelling Latex, Natural Rubber Allergy (Mild, Verified 10/10/24 09:31) Redness of Skin grapefruit Adverse Reaction (Unknown, Uncoded 10/10/24 09:31) Unknown Medication List - Last Reconciled 10/10/24 by Tramaine Calzada CNP allopurinol 300 mg PO DAILY 90 days aspirin (Adult Low Dose Aspirin) 81 mg PO DAILY carvedilol 25 mg PO BID 30 days cholecalciferol (vitamin D3) 50 mcg PO DAILY 90 days clonidine patches transdermal cyclobenzaprine 10 mg PO BID PRN fenofibrate 160 mg PO DAILY 30 days gabapentin 300 mg PO TID PRN insulin glargine (Lantus Solostar U-100 Insulin) 50 units (0.5 mL) subcut BID 30 days insulin lispro 1 sliding scale dose subcut USEASDIRECTD isosorbide mononitrate ER 30 mg PO BID 90 days losartan 50 mg PO DAILY ranolazine ER 500 mg PO BID 30 days rosuvastatin (Crestor) 40 mg PO DAILY 30 days torsemide 20 mg PO DAILY 30 days tramadol 50 mg PO BEDTIME PRN Tobacco use date assessed: 10/10/24 Fall risk assessment: 2 + Falls in past year Last assessed Fall Risk: 10/10/24 Dental Screening Dental Screen Date: 10/10/24 Did you have a dental visit in the last 12 months?: No Did you have a dental problem in the last 6 months where you did not have access to dental care?: No Was dental information given to patient?: Patient has dentist HPI HPI Comments History of Present Illness Details 69-year-old male presents for hospital discharge follow-up. He was admitted at [facility] between 09/19/2024 and 09/24/2024. Hospital Course This is a pleasant 69-year-old male with PMH significant and relevant for multivessel CAD s/p CABG in 2007 (GUERRERO to LAD, R SVG's to diagonal and marginal branches with a Y graft to OM1 and OM2), ischemic cardiomyopathy with an EF 45-50%, ESRD on PD, insulin-dependent type 2 diabetes, hypertension, hyperlipidemia, who presented to [facility] with progressive weakness and syncopal episode. On admission he was found to be positive for influenza a and treated with oseltamivir for 5 days with renal dosing. Cardiology was also consulted for concerns of cardiogenic syncope with recently noted moderate to severe aortic stenosis with low flow gradient. Patient was seen by cardiac surgery who recommended TAVR evaluation and underwent TAVR CT protocol and per Cardiology have sufficient sizes for transfemoral TAVR. Given recent contrast received for CT scan, Cardiology recommends follow-up in clinic on 10/08/2024 for repeat echocardiogram and outpatient follow-up for TAVR. Given that the patient is preload dependent, adjustments were made home medications with reduction in dose of Coreg while continuing torsemide. He is on isosorbide mononitrate and combination hydrochlorothiazide-losartan were discontinued. He needs to follow-up with his primary care physician within 1-2 weeks as well as Cardiology follow-up as scheduled on 10/08/2024 for repeat echocardiogram, outpatient TAVR evaluation. I assumed care on the day of discharge and patient was hemodynamically stable and agreeable to the overall plan. Okay to discharge home per Cardiology. Seen by PT recommend home with services. Plan - Reduce carvedilol to 6.25 mg twice daily - Continue torsemide 20 mg daily - Continue home clonidine and ranolazine for now - DC HCTZ-losartan and DC isosorbide mononitrate as patient is preload dependent - Follow-up with PCP and Cardiology as scheduled Labs on 09/24/2024 - Unremarkable - Creatinine was 3.58 Cardiology visit on 10/08/2024 (notes not available) - Isosorbide mononitrate ER 30 mg BID was restarted - Losartan 50 mg daily started - Echocardiogram was performed - Cardiology to schedule TAVR He has not started taking isosorbide mononitrate and losartan. 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 Reports wounds above of his right great toe and sole on the back of his right foot. Unclear how he sustained the wounds but noticed them on his last hospital admission. He is followed by Podiatry who advised him to perform daily wound care. [facility] Medical History (Updated 10/13/24 @ 15:03 by Tramaine Calzada CNP) Heart murmur Chronic kidney disease, stage 3 Edema Back disorder Arthritis Diabetes Congestive heart disease High cholesterol High blood pressure Sinusitis Melanoma Hernia Surgical History Hx of biopsy History of ankle surgery H/O vasectomy History of back surgery Hx of appendectomy H/O heart bypass surgery Family History Father High blood pressure Cardiovascular disease Paternal Grandfather Cardiovascular disease Social History Housing: Apartment Patient Tobacco Use Status: Never used Tobacco e-Cigarette/Vaping Use: Never Used service: No Current occupational status: employed 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 1. Little interest or pleasure in doing things: more than half the days 2. Feeling down, depressed, or hopeless: more than half the days 3. Trouble falling or staying asleep, or sleeping too much: not at all 4. Feeling tired or having little energy: nearly every day 5. Poor appetite or overeating: not at all 6. Feeling bad about yourself - or that you are a failure or have let yourself or your family down: not at all 7. Trouble concentrating on things, such as reading the newspaper or watching television: not at all 8. Moving or speaking so slowly that other people could have noticed. Or the opposite - being so fidgety or restless that you have been moving around a lot more than usual: not at all 9. Thoughts that you would be better off or of hurting yourself in some way: not at all Total score: 7 Source: Developed by Drs. Francisco J Berkowitz, Jeniffer Chen, Bryan Sofia and colleagues, with an educational dayo from [employer]. Thrive Questionnaire Date Thrive assessed: 10/03/24 I am a: Patient What is your living situation today?: I have a steady place to live Within the past 12 months, did the food you bought not last and you didn't have the money to get more?: Never true Within the past 12 months, did you worry whether your food would run out before you got money to buy more?: Sometimes True Do you have trouble paying for medicines?: No Do you have trouble getting transportation to medical appointments?: No Do you have trouble paying your heating and electricity bill?: No Do you have trouble taking care of your child, family member or friend?: No Do you have trouble with day-to-day activities such as bathing, preparing meals, shopping, managing finances, etc.?: I choose not to answer this question Are you currently unemployed and looking for a job?: No Are you interested in more education?: No Please select the resources that you would like help with: Housing/Detention Currently or been in a relationship where the following occur: No concerns reported THRIVE Score: 1 MENDOZA-7 AMB Questionnaire MENDOZA-7 Date MENDOZA - 7 assessed: 07/08/24 Source: Developed by Drs. Francisco J Berkowitz, Jeniffer Chen, Bryan Sofia and colleagues, with an educational dayo from [employer]. Review of Systems Const Details: Const Denies chills, Denies fatigue, Denies fever(s), Denies headache(s) and Denies weakness ENT Denies dizziness and Denies headache(s) Card Denies chest pain, Denies lightheadedness, Denies dyspnea and Denies other (Palpitations) Resp Denies cough, Denies dyspnea, Denies wheezing and Denies other ( shortness of breath) GI Denies abdominal pain, Denies melena, Denies hematochezia, Denies change in bowel habits, Denies dyspepsia and Denies nausea Denies hematuria and Denies dysuria Musc Denies abnormal gait, Denies myalgias, Denies arthralgias, Denies numbness and Denies tingling Skin/Breast Reports wounds, Denies rash, Denies unusual bruising Neuro Denies abnormal gait, Denies dizziness, Denies headache(s), Denies memory loss, Denies numbness, Denies Sensory deficit (Neuro), Denies tingling and Denies weakness Psych Denies anxiety, Denies depression, Denies memory loss Endo Denies cold intolerance, Denies fatigue, Denies heat intolerance, Denies polydipsia and Denies polyuria Aller/Immun Denies wheezing Physical exam (Primary Care) Vital Signs: Last Vital Signs Temp 98.6 F 10/10/24 09:15 Pulse 88 10/10/24 09:15 Resp 16 10/10/24 09:15 BP 134/60 10/10/24 09:46 Pulse Ox 96 10/10/24 09:15 Oxygen Delivery Method Room Air 10/10/24 09:15 BMI result Body Mass Index 33.6 Tobacco/Smoking Status: Tobacco use Status Tobacco use date assessed 10/10/24 10/10/24 09:18 Patient Tobacco Use Status Never used Tobacco 10/10/24 09:09 Tobacco use type 03/27/23 15:41 e-Cigarette/Vaping Use Never Used 10/10/24 09:09 PHQ-9: PHQ-9 Score PHQ-9: Total score 7 10/10/24 15:03 Thrive Assessment: Date of Thrive Assessment Date Thrive assessed 10/03/24 10/10/24 09:09 Currently or been in a relationship where the following occur: No concerns reported Const Other: General: no acute distress and well developed Nutritional Appearance: well nourished Orientation/consciousness: patient oriented x3 HENMT Head: Yes normocephalic and Yes atraumatic Eyes General: appearance normal, both eyes and all related structures Pupils: Equal, round and reactive pupils present EOM: EOMs intact bilaterally Resp Effort & Inspection: normal respiratory effort Auscultation: clear to auscultation bilaterally Cardio Rate: regular rate Rhythm: regular rhythm Heart sounds: S1 normal heart sound present, S2 normal heart sound present, no gallops, +murmurs and no rubs GI Palpation (GI): No Abdominal aortic bruit present, Soft to palpation, nontender, No hepatosplenomegaly present and No Rebound tenderness present Auscultation: normal bowel sounds General: Yes no CVA tenderness Back/Spine/Pelvis Back: no CVA tenderness Cervical Spine: cervical ROM normal and No Cervical spine tenderness Thoracic/Lumbar Spine: thoraco-lumbar ROM normal, No pain with thoraco-lumbar ROM, No thoracic spinal tenderness and No lumbar spinal tenderness Extrem General: Yes normal to inspection, No edema and No calf tenderness Skin General: warm and dry. Normal skin color. Normal skin turgor Lesions: no lesions Rashes: Small stage II ulcers above the right great toe and sole of right foot; no active drainage; no overt infection Trauma: no lacerations or abrasions Wounds: no wounds Nails: normal Neuro General: patient oriented x3, gait normal and no focal neuro deficit Cranial nerves: Yes Equal, round and reactive pupils present Cognition (Neuro): normal cognition Gait exam (Neuro): Normal gait present Sensory Exam: No Sensory deficit (Neuro) Psych Appearance: grossly normal Affect: normal affect Attitude: cooperative Thought process: Normal thought process present Coding Level of Care Code Est Pt Level 5 (64934) Diagnoses Primary hypertension I10 Hypertension type: primary hypertension Hospital discharge follow-up Z09 Wounds, multiple T07.XXXA Time Spent (min) 75 Comment Assessment & Plan Assessment & Plan (1) High blood pressure: Code(s): I10 - Essential (primary) hypertension Category: Medical Qualifiers: Hypertension type: primary hypertension Qualified Code(s): I10 - Essential (primary) hypertension Plan: Resting blood pressure is 134/60, slightly above goal of less than 130/80. Continue current treatment regimen. Encouraged to warehouse picker losartan and isosorbide mononitrate today and start taking as prescribed. Low-sodium diet encouraged. Follow-up with cardiology as planned. Performed lab work before next visit. Return in 1-2 months for hypertension, extended physical exam, and labs review, or sooner with symptoms or concerns. Verbalized understanding and agreed with treatment plan. (2) Hospital discharge follow-up: Code(s): Z09 - Encounter for follow-up examination after completed treatment for conditions other than malignant neoplasm Category: Medical Plan: Plan as above. (3) Wounds, multiple: Code(s): T07.XXXA - Unspecified multiple injuries, initial encounter Category: Medical Plan: Small stage II ulcers above the right great toe and sole of right foot; no active drainage; no overt infection. Encouraged to perform wound care daily with soap and water. May apply antibiotic ointment as needed. Cover with dry sterile dressing. Instructed on signs and symptoms of infection to monitor and follow-up immediately. Follow-up with Podiatry as planned. Verbalized understanding and agreed with the treatment plan. Plan Total time spent caring for the patient today was 75 minutes. This includes time spent before the visit reviewing the chart, time spent during the visit, and time spent after the visit on documentation, reviewing laboratory results, diagnostic imaging, medications, performing a medically necessary evaluation, counseling on diagnoses, care coordination, ordering appropriate tests, ordering appropriate medications, review of tests performed by other providers, reporting test results with the patient, communication with other healthcare providers.
[2024-10-10 09:15] VITALS: BP 142/64; PULSE 88; RESP 16; TEMP 37; O2SAT 96; BMI 33.6
--- OUTSIDE RECORDS SUMMARY | 2024-10-10 09:25 | XMS_ITS | Encounter Summary ---
Author Organization [facility] Address [address] [phone] Phone Care Team Providers Care Elastic Yarn Twister Helper Name Role Phone Tramaine Calzada CNP Primary Care Provider Reason for Visit * Reason Onset Date Comments Med Refill 05/20/2024 Encounter Details Date Type Department Care Team (Late st Contact Info) Description 05/20/2024 Refill [facility] [address] [place] [phone] Jerman Keene MD [address] [phone] Social History Tobacco Use Types Packs/Day Years Used Date Smoking Tobacco: Never Smokeless Tobacco: Never Alcohol Use Standard Drinks/Week Comments Not Currently 0 (1 standard drink = 0.6 oz pur e alcohol) Sex and Gender Information Value Date Recorded Sex Assigned at Not on file Legal Sex Male 12:40 PM EDT Gender Identity Not on file Sexual Orientation Not on file documented as of this encounter Plan of Treatment Not on file documented as of this encounter Visit Diagnoses Not on filedocumented in this encounter Care Teams Elastic Yarn Twister Helper Relationship Specialty Start Date End Date Tramaine Calzada CNP [address] [place] [id number] PCP - General 03/02/23 documented as of this encounter
--- OUTSIDE RECORDS SUMMARY | 2024-10-10 09:25 | XMS_ITS | Encounter Summary ---
Author Organization [facility] Address [address] [place] [address] Phone Care Team Providers Care Manager Of Purchasing Name Role Phone Tramaine Calzada CNP Primary Care Provider [phone] Encounter Details Date Type Department Care Team (Late st Contact Info) Description 05/13/2024 Office Communication [facility] [address] [place] [phone] Mary Valero, MARY [address] [place] [address] Social History Tobacco Use Types Packs/Day Years [...] on filedocumented in this encounter Care Teams Manager Of Purchasing Relationship Specialty Start Date End Date Tramaine Calzada CNP [address] [place], [place] [phone] PCP - General 03/02/23 documented as of this encounter
--- OUTSIDE RECORDS SUMMARY | 2024-10-10 09:25 | XMS_ITS | Encounter Summary ---
Author Organization [facility] Address [address] [address] Phone Care Team Providers Care Clay Modeler Name Role Phone ElsiTramaine CNP Primary Care Provider [phone] Encounter Details Date Type Department Care Team (Late st Contact Info) Description 09/17/2024 Treatment [facility]. [address] [phone] Jerman Dong MD [address] [phone] Social History Tobacco Use Types Packs/Day Years [...] on file documented as of this encounter Miscellaneous Notes * Dialysis Note - Jerman Dong MD - 09/17/2024 12:00 AM EST Patient: Nikita Forte : 1955 Note Type: Dialysis Rounds-PD Telehealth Service Date: 09/17/2024 Telehealth encounter using audiovisual technology, performed according to state requirements. Appropriate patient consent obtained. This patient was personally seen for a complete visit as part of routine monthly dialysis care for end stage renal disease. Attending Sign Language Teacher: JERMAN DONG MD Dialysis Location: [facility] Patient is stable. COMMENTS: On PD . Has have sinusitis HOME MEDICATIONS Medications reviewed. Current [facility] Out[facility] Medications aspirin EC tablet Take 81 mg by mouth 1 (one) time each day Start Date: B Gwnodhk-T-Lzohl Acid (B complex-vitamin C-folic acid) 1 MG tablet Take 1 tablet by mouth 1 (one) time each day with breakfast Start Date: 07/23/2024 calcitriol (Rocaltrol) 0.25 MCG capsule Take 1 capsule (0.25 mcg total) by mouth 1 (one) time each day Start Date: 02/14/2024 carvedilol (COREG) tablet Take 25 mg by mouth in the morning and 25 mg in the evening. Take with meals. Start Date: cloNIDine (Foqvmmkw-KCO-8) 0.2 MG/24HR patch weekly Place 1 patch on the skin 1 (one) time per week Start Date: 09/02/2024 cloNIDine 0.2 MG/24HR patch weekly APPLY 1 PATCH TOPICALLY TO THE SKIN 1 TIME EVERY WEEK Start Date: 05/26/2024 gabapentin (NEURONTIN) capsule Take 300 mg by mouth in the morning and 300 mg in the evening and 300 mg before bedtime. Start Date: ICOSAPENT ETHYL PO Take by mouth Start Date: insulin glargine (LANTUS) injection 100 units/mL Inject under the skin every night Start Date: losartan (Cozaar) 50 MG tablet Take 1 tablet (50 mg total) by mouth 1 (one) time each day Start Date: 07/23/2024 oxyCODONE-acetaminophen (ROXICET) solution 5-325 mg/5mL Take by mouth every 4 (four) hours if needed for moderate pain Start Date: predniSONE (DELTASONE) tablet Take 20 mg by mouth if needed Start Date: ranolazine (RANEXA) 12 hr tablet Take 500 mg by mouth in the morning and 500 mg in the evening. Do not crush, chew, or split.. Start Date: rosuvastatin (CRESTOR) 40 MG tablet Take 1 tablet (40 mg total) by mouth 1 (one) time each day Start Date: 05/29/2024 Torsemide 40 MG tablet Take 40 mg by mouth 1 (one) time each day Start Date: 07/23/2024 Current [facility] Allergies Allergen: ADHESIVE TAPE Reaction: Other (see comments) Rash Severity: Low Low Allergen: GRAPEFRUIT EXTRACT Reaction: Other (see comments) Rash Severity: Low Low Allergen: LATEX Allergen: MISC. SULFONAMIDE CONTAINING COMPOUNDS BP AND FLUID ASSESSMENT Acceptable blood pressure. Fluid status acceptable. ADEQUACY ASSESSMENT Target met. Prescription compliance acceptable. COMMENTS: Repeat Kt/V, Total 2.61 (07/23/24) 1.57 (07/11/24) Kt/V, Residual 1.86 (07/23/24) 0.76 (07/11/24) BUN 55 (09/11/24) 51 (08/11/24) 56 (07/23/24) Creatinine 4.51 (09/11/24) 4.14 (08/11/24) 4.24 (07/23/24) Bicarbonate (CO2) 24 (09/11/24) 26 (08/11/24) 25 (07/11/24) Sodium 140 (09/11/24) 139 (08/11/24) 141 (07/11/24) Urine Volume 2,100 (07/23/24) 900 (07/11/24) ACCESS ASSESSMENT Access is perfect. Exit site looks clean. Tunnel tract without sign of infection. Peritoneal fluid is clear. ANEMIA ASSESSMENT Hemoglobin not at target. EVELYN not administered secondary to recent history of malignancy. No iron needed at this time. Hgb 11.9 (09/11/24) 11.8 (08/11/24) 12.1 (07/11/24) Hemoglobin 11.3 (04/10/24) Iron Saturation (TSat) 21 (09/11/24) 26 (08/11/24) 20 (07/11/24) Ferritin 159 (09/11/24) 155 (08/11/24) 83 (07/11/24) Iron 62 (09/11/24) 75 (08/11/24) 58 (07/11/24) TIBC 290 (09/11/24) 293 (08/11/24) 290 (07/11/24) MCV 98.4 (08/11/24) 99.7 (07/11/24) 98 (04/10/24) Platelets 260 (08/11/24) 222 (07/11/24) 201 (04/10/24) BMM ASSESSMENT PTH low. Phosphorus controlled. Calcium controlled. Bone and mineral metabolism parameters reviewed. Calcium, Adjusted Total 9.6 09/11/24 9.4 08/11/24 9.3 07/11/24 Calcium 9.6 09/11/24 9.4 08/11/24 9.3 07/11/24 Phosphorus, Serum 4.3 09/11/24 3.6 08/11/24 4.1 07/11/24 Phosphorus 4.5 05/15/24 4.7 04/10/24 Ca*PO4 41.3 09/11/24 33.8 08/11/24 38.1 07/11/24 PTH, Intact 92 09/11/24 107 08/11/24 114 07/11/24 PTH 142 04/10/24 Vitamin D, 25-OH, Total 23.9 04/10/24 Vitamin D, 25-Hydroxy 31.0 01/25/24 Magnesium 2.0 09/11/24 1.9 08/11/24 2.2 07/11/24 Alkaline Phosphatase 44 09/11/24 40 08/11/24 48 07/11/24 Aluminum 2 06/25/24 NUTRITION ASSESSMENT Albumin at goal. Potassium controlled. Albumin 4.3 09/11/24 4.3 08/11/24 4.3 07/11/24 Potassium 4.4 09/11/24 3.8 08/11/24 4.0 07/11/24 Hemoglobin A1C 6.2 09/11/24 TRANSPLANT STATUS COMMENT COMMENTS: In process needs AVR PHYSICAL EXAM Exam performed. ADDITIONAL LABS INR 1.0 (04/10/24) White Blood Cells 8.9 (08/11/24) 9.3 (07/11/24) WBC 8.5 (04/10/24) WBC 13.2 (01/25/24) Cholesterol 144 (09/11/24) HDL 24 (09/11/24) LDL-Calc 66 (09/11/24) Triglycerides 268 (09/11/24) Hep B Surface Antibody <4 (09/11/24) NONREACTIVE (05/16/24) Hepatitis B Surface Ab <3.5 (06/21/24) <3.5 (04/10/24) Uric Acid 5.2 (09/11/24) Signed by: JERMAN DONG MD on 09/17/2024 at 01:24:06 PM documented in this encounter Plan of Treatment Not on file documented as of this encounter Visit Diagnoses Not on filedocumented in this encounter Care Teams Clay Modeler Relationship Specialty Start Date End Date Tramaine Calzada CNP [address] [place] [address] PCP - General 03/02/23 documented as of this encounter
--- OUTSIDE RECORDS SUMMARY | 2024-10-10 09:25 | XMS_ITS | Encounter Summary ---
Author Organization [facility] Address [address] [place] [address] Phone Care Team Providers Care Operating Room Technician Name Role Phone Tramaine Calzada CNP Primary Care Provider [phone] Encounter Details Date Type Department Care Team (Late st Contact Info) Description 06/24/2024 Office Communication [facility] [address] [place] [phone] Erin Morley, RN [address] [place] [address] Social History Tobacco Use Types Packs/Day Years [...] on filedocumented in this encounter Care Teams Operating Room Technician Relationship Specialty Start Date End Date Tramaine Calzada CNP [address] [place], [place] [phone] PCP - General 03/02/23 documented as of this encounter
--- OUTSIDE RECORDS SUMMARY | 2024-10-10 09:26 | XMS_ITS | Clinical Summary ---
Author Organization [facility] Address [address] [facility] [address] [place] [address] Phone Care Team Providers Care Weigher And Crusher Name Role Phone Tramaine Calzada CNP Primary Care Provider [phone] Allergies Active Allergy Reactions Criticality Noted Date Comments Adhesive Tape Other (see comments),Rash Low 06/25/2014 Swelling of skin states could not tolerate band aids Grapefruit Extract Other (see comments),Rash Low 03/25/2019 Latex 04/04/2023 Misc. Sulfonamide Containing Compounds 04/04/2023 Medications carvedilol (COREG) 12.5 MG tablet Take 25 mg by mouth in the morning and 25 mg in the evening. Take with meals. Active gabapentin (NEURONTIN) 300 MG capsule Take 300 mg by mouth in the morning and 300 mg in the evening and 300 mg before bedtime. Active ICOSAPENT ETHYL PO Take by mouth Active insulin glargine (LANTUS) 100 UNIT/ML injection Inject under the skin every night Active oxyCODONE-aceta minophen (ROXICET,PERCOC ET) 5-325 MG/5ML solution Take by mouth every 4 (four) hours if needed for moderate pain Active predniSONE (DELTASONE) 20 MG tablet Take 20 mg by mouth if needed Active ranolazine (RANEXA) 500 MG 12 hr tablet Take 500 mg by mouth in the morning and 500 mg in the evening. Do not crush, chew, or split.. Active aspirin (ST RENETTA) 81 MG EC tablet Take 81 mg by mouth 1 (one) time each day Active calcitriol (Rocaltrol) 0.25 MCG capsule Take 1 capsule (0.25 mcg total) by mouth 1 (one) time each day 90 capsule 3 4 02/14/20 25 Active cloNIDine (Zoovfbkl-GYW-6 ) 0.2 MG/24HR patch weekly Place 1 patch on the skin 1 (one) time per week 13 patch 3 4 Active cloNIDine 0.2 MG/24HR patch weekly APPLY 1 PATCH TOPICALLY TO THE SKIN 1 TIME EVERY WEEK 12 patch 3 4 Active rosuvastatin (CRESTOR) 40 MG tablet Take 1 tablet (40 mg total) by mouth 1 (one) time each day 30 tablet 3 4 Active losartan (Cozaar) 50 MG tablet Take 1 tablet (50 mg total) by mouth 1 (one) time each day 90 tablet 3 4 07/23/20 25 Active Torsemide 40 MG tablet Take 40 mg by mouth 1 (one) time each day 90 tablet 3 4 07/23/20 25 Active B Zzfzqxg-W-Mfpwn Acid (B complex-vitamin C-folic acid) 1 MG tablet Take 1 tablet by mouth 1 (one) time each day with breakfast 30 tablet 11 4 07/23/20 25 Active Active Problems Problem Noted Date Diagnosed Date Stage 5 chronic kidney disease 02/14/2024 Secondary hyperparathyroidism of renal origin Hypertensive chronic kidney disease 04/27/2023 Obstructive sleep apnea syndrome 04/27/2023 Chronic kidney disease, stage 4 (severe) 023 Left kidney absent 04/27/2023 Type 2 diabetes mellitus wit h diabetic chronic kidney disease 04/27/2023 Resolved Problems Problem Noted Date Diagnosed Date Resolved Date Stage 3 chronic kidney disease 04/04/2023 04/27/2023 Essential (primary) hypertension 04/04/2023 04/27/2023 Encounters Date Type Department Care Team Description 09/17/2024 Treatment [facility] [id number] [phone] Jerman Keene MD 07/23/2024 Treatment [facility] [id number] [phone] Jerman Keene MD from Last 3 Months Immunizations Name Administration Dates Next Due Influenza (IM) Preservative Free 06/12/2017 Influenza Split High Dose Pr eservative Free IM 06/05/2019 Influenza Whole 06/12/2017, 6,07/03/2015,06/25 Influenza, MDCK, PF, Quadrivalent 06/02/2021 Influenza, Quadrivalent, Pre servative Free 09/05/2018 Influenza, Unspecified 07/03/2015,2013,06/17/1997,06/25,06/29/1995 Pfizer SARS-COV-2 02/04/2021,01/14/2021 Pneumococcal Conjugate 13-Valent 04/15/2021 Pneumococcal Polysaccharide 02/10/2016 Shingrix 10/26/2022 Tdap 05/04/2012 Family History Relation Status Comments Father Mother Social History Tobacco Use Types Packs/Day Years Used Date Smoking Tobacco: Never Smokeless Tobacco: Never Tobacco Cessation:Counseling Given: No Alcohol Use Standard Drinks/Week Comments Not Currently 0 (1 standard drink = 0.6 oz pur e alcohol) Sex and Gender Information Value Date Recorded Sex Assigned at Not on file Legal Sex Male 12:40 PM EDT Gender Identity Not on file Sexual Orientation Not on file Last Filed Vital Signs Vital Sign Reading Time Taken Comments Blood Pressure 134/48 05/22/2024 2:08 PM EDT Pulse 41 05/22/2024 2:08 PM EDT Temperature - - Respiratory Rate - - Oxygen Saturation 96% 04/27/2023 10:00 AM EDT Inhaled Oxygen Concentration - - Weight 122 kg (268 lb) 05/22/2024 2:08 PM EDT Height - - Body Mass Index - - Plan of Treatment Health Maintenance Due Date Last Done Comments Hepatitis B Vaccine (1 of 5 - Risk Dialysis 4-dose series) 1974 Colorectal Cancer Screening: Annual FOBT 2003 Colorectal Cancer Screening: Colonoscopy 2003 Colorectal Cancer Screening: Sigmoidoscopy 2003 Pneumococcal Vaccine: 65+ Ye ars (3 of 3 - PPSV23 or PCV20) 06/10/2021 04/15/2021, 02/10/2016 Diabetes: Ophthalmology Exam 03/02/202305/2022, 02/17/2020, 01/12/2020, Additional history exists Diabetes: Pedal Pulse Checked 03/02/2023 Diabetes: Sensory Foot Exam 03/02/2023 Diabetes: Visual Foot Exam 03/02/2023 Influenza Vaccine (#1) 2024 , 06/05/2019, 09/05/2018, Additional history exists Diabetes: Hemoglobin A1C 12/10/2024 09/11/2024, 04/0 02/2023 Procedures Procedure Name Priority Date/Time Associated Diagnosis Comments GLUCOSE, URINE, 24 HOUR Routine 10/06/2024 3:00 AM EST CBC AND DIFFERENTIAL Routine 10/06/2024 3:00 AM EST HEPATITIS B SURFACE ANTIGEN W/REFL CONFIRM Routine 10/06/2024 3:00 AM EST TRANSFERRIN SATURATION Routine 3:00 AM EST PROTEIN, TOTAL, SERUM Routine 10/06/2024 3:00 AM EST MAGNESIUM Routine 10/06/2024 3:00 AM EST ELECTROLYTE PANEL Routine 10/06/2024 3:0 0 AM EST LIH (HC) Routine 10/06/2024 3:00 AM EST GLUCOSE, RANDOM Routine 10/06/2024 3:00 AM EST LACTATE DEHYDROGENASE Routine 10/06/2024 3:00 AM EST BILIRUBIN, TOTAL Routine 10/06/2024 3:00 AM EST AST Routine 10/06/2024 3:00 AM EST ALT Routine 10/06/2024 3:00 AM EST CALCIUM PHOSPHORUS PRODUCT, ADJUSTED (HC) Routine 10/06/2024 3:00 AM EST ALKALINE PHOSPHATASE Routine 10/06/2024 3:00 AM EST FERRITIN Routine 10/06/2024 3:00 AM EST PTH, INTACT Routine 10/06/2024 3:00 AM EST PD ADEQUECY BUNDLED Routine 10/06/2024 3 :00 AM EST ALUMINUM LEVEL Routine 09/11/2024 3:00 AM EST HEMOGLOBIN A1C Routine 09/11/2024 3:00 AM EST HEMOGLOBIN Routine 09/11/2024 3:00 AM EST URIC ACID Routine 09/11/2024 3:00 AM EST TRANSFERRIN SATURATION Routine 3:00 AM EST PROTEIN, TOTAL, SERUM Routine 09/11/2024 3:00 AM EST MAGNESIUM Routine 09/11/2024 3:00 AM EST LIPID PANEL Routine 09/11/2024 3:00 AM EST ELECTROLYTE PANEL Routine 09/11/2024 3:0 0 AM EST LACTATE DEHYDROGENASE Routine 09/11/2024 3:00 AM EST LIH (HC) Routine 09/11/2024 3:00 AM EST CREATININE, SERUM Routine 09/11/2024 3:0 0 AM EST GLUCOSE, RANDOM Routine 09/11/2024 3:00 AM EST BUN Routine 09/11/2024 3:00 AM EST BILIRUBIN, TOTAL Routine 09/11/2024 3:00 AM EST AST Routine 09/11/2024 3:00 AM EST ALT Routine 09/11/2024 3:00 AM EST ALKALINE PHOSPHATASE Routine 09/11/2024 3:00 AM EST CALCIUM PHOSPHORUS PRODUCT, ADJUSTED (HC) Routine 09/11/2024 3:00 AM EST CONFIRMATION TEST HCV Routine 09/11/2024 3:00 AM EST HEPATITIS C ABS W/REFLEX RNA DETECTR Routine 09/11/2024 3:00 AM EST HEPATITIS B SURFACE ANTIGEN W/REFL CONFIRM Routine 09/11/2024 3:00 AM EST HEPATITIS B SURFACE ANTIBODY QUANT Routine 09/11/2024 3:00 AM EST FERRITIN Routine 09/11/2024 3:00 AM EST PTH, INTACT Routine 09/11/2024 3:00 AM EST COLLECTION DATE (HC) Routine 09/11/2024 3:00 AM EST HEPATITIS B SURFACE ANTIGEN W/REFL CONFIRM Routine 08/11/2024 3:00 AM EST MAGNESIUM Routine 08/11/2024 3:00 AM EST ELECTROLYTE PANEL Routine 08/11/2024 3:0 0 AM EST TRANSFERRIN SATURATION Routine 3:00 AM EST LIH (HC) Routine 08/11/2024 3:00 AM EST PROTEIN, TOTAL, SERUM Routine 08/11/2024 3:00 AM EST LACTATE DEHYDROGENASE Routine 08/11/2024 3:00 AM EST GLUCOSE, RANDOM Routine 08/11/2024 3:00 AM EST BILIRUBIN, TOTAL Routine 08/11/2024 3:00 AM EST BUN Routine 08/11/2024 3:00 AM EST AST Routine 08/11/2024 3:00 AM EST ALKALINE PHOSPHATASE Routine 08/11/2024 3:00 AM EST ALT Routine 08/11/2024 3:00 AM EST CALCIUM PHOSPHORUS PRODUCT, ADJUSTED (HC) Routine 08/11/2024 3:00 AM EST FERRITIN Routine 08/11/2024 3:00 AM EST PTH, INTACT Routine 08/11/2024 3:00 AM EST CBC AND DIFFERENTIAL Routine 08/11/2024 3:00 AM EST CREATININE, SERUM Routine 08/11/2024 3:0 0 AM EST End stage renal disease (HCC) GLUCOSE, URINE, 24 HOUR Routine 07/23/2024 3:00 AM EST LIH (HC) Routine 07/23/2024 3:00 AM EST PD ADEQUECY BUNDLED Routine 07/23/2024 3 :00 AM EST HEPATITIS B SURFACE ANTIGEN W/REFL CONFIRM Routine 07/11/2024 3:00 AM EST TRANSFERRIN SATURATION Routine 3:00 AM EST MAGNESIUM Routine 07/11/2024 3:00 AM EST PROTEIN, TOTAL, SERUM Routine 07/11/2024 3:00 AM EST LACTATE DEHYDROGENASE Routine 07/11/2024 3:00 AM EST ELECTROLYTE PANEL Routine 07/11/2024 3:0 0 AM EST GLUCOSE, RANDOM Routine 07/11/2024 3:00 AM EST LIH (HC) Routine 07/11/2024 3:00 AM EST BILIRUBIN, TOTAL Routine 07/11/2024 3:00 AM EST AST Routine 07/11/2024 3:00 AM EST ALT Routine 07/11/2024 3:00 AM EST ALKALINE PHOSPHATASE Routine 07/11/2024 3:00 AM EST CALCIUM PHOSPHORUS PRODUCT, ADJUSTED (HC) Routine 07/11/2024 3:00 AM EST FERRITIN Routine 07/11/2024 3:00 AM EST PTH, INTACT Routine 07/11/2024 3:00 AM EST GLUCOSE, URINE, 24 HOUR Routine 07/11/2024 3:00 AM EST CBC AND DIFFERENTIAL Routine 07/11/2024 3:00 AM EST PD ADEQUECY BUNDLED Routine 07/11/2024 3 :00 AM EST from Last 3 Months Results * (ABNORMAL) PD Adequecy Bundled (10/06/2024 3:00 AM EST) Only the most recent of3 resultswithin the time period is included. Patient Height (FT) 187.9 cm [facility] Dry Weight 119.0 kg [facility] Body Surface Area 2.44 m2 [facility] Comment:Body surface area es timated from [place] and Louisa formula Total Body Water 57.9 L [facility] Comment:Volume of distributi on estimated from [place] and [place] formula Creatinine 3.00(H) 0.70 - 1.30 mg/dL [facility] BUN 30(H) 7 - 25 mg/dL [facility] Urine Volume 2,300 mL [facility] Collection Interval, Ur 1,440 min [facility] Total Drain Volume 24 Hr 9,535 mL [facility] Creatinine, Urine 57 mg/dL [facility] Comment:See 24 Hour Urine Cr eatinine for Reference Range in mg/24hr Urea Nitrogen, Ur 362.1 mg/dL [facility] Comment:See 24 Hour Urine Ur ea Nitrogen for Reference Range in g/24hr Creatinine renal clearance 21.5(L) 85.0 - 125.0 mL/min/1. 73m2 [facility] Kt/V, Residual 3.36 [facility] Weekly Residual CrCl 216.9 L/wk/1.73 m2 [facility] Weekly Residual GFR 177.3 L/wk/1.73 m2 [facility] Comment: Calculated by the arithmetic mean of urea and creatinine clearance(Guideline 6 of KDOQI Adequacy 2000) Creat, 24 HR Dial 1.13 mg/dL [facility] [place] Creat, 24 Hr Dial 1.02 mg/dL [facility] Urea Nitrogen, 24HR Dial 19 mg/dL [facility] Dial KT/V 0.73 [facility] Kt/V, Total 4.09 [facility] Comment: The K/DOQI 2006 recommendations for delivered peritoneal dialysis are: For patients with significant RKF (urine volume >100 mL/day), recommended minimal delivered weekly dose of total (peritoneal and kidney) Kt/V(urea) is greater than or equal to 1.7. For patients without significant RKF (urine volume < or = 100 mL/day), recommended minimal delivered weekly dose of peritoneal Kt/V(urea) is greater than or equal to 1.7. Weekly Dialysate CrCl 16.1 L/wk/1.73 m2 [facility] Weekly Total CRCL 193.4 L/wk/1.73 m2 [facility] Comment:Calculated by adding the GFR and Weekly Dialysate CrCl PNA 91.0 g/day [facility] NPNA (PD) 0.9 g/kg/day [facility] Comment: Providers should strive to achieve an nPNA of greater than or equal to 0.9 g/kg/day. nPNA valid only if protein loss <15 g/day. 10/06/2024 3:00 AM EST 10/07/2024 2:05 PM EST us Jerman Keene MD LAB BLOOD ORDERABLES Final Resu lt Performing Organization Address [facility]/ZIP Co de Phone Number APS [facility] [address] [place] [address] * LIH (10/06/2024 3:00 AM EST) Only the most recent of5 resultswithin the time period is included. Lipemia Normal Normal [facility] Icterus Normal Normal [facility] Hemolysis Normal Normal [facility] 10/06/2024 3:00 AM EST 10/07/2024 2:05 PM EST us Jerman Keene MD LAB [id number] LICITED RESULTS Final Result Performing Organization Address [facility] de Phone Number [facility]PS [facility] [address] [place] [address] * (ABNORMAL) Calcium Phosphorus Product, Adjusted (10/06/2024 3:00 AM EST) Only the most recent of4 resultswithin the time period is included. Albumin 4.0 3.6 - 5.4 g/dL [facility] Calcium 9.5 8.6 - 10.3 mg/dL [facility] Phosphorus, Serum 2.3(L) 2.5 - 5.0 mg/dL [facility] Ca*PO4 21.8 <55.0 mg2/dL2 [facility] Calcium, Adjusted Total 9.5 8.6 - 10.3 mg/dL [facility] CA*PO4 CORRCTD 21.8 <55.0 mg2/dL2 [facility] 10/06/2024 3:00 AM EST 10/07/2024 2:05 PM EST us Jerman Keene MD LAB [id number] LICITED RESULTS Final Result Performing Organization Address [facility] Co de Phone Number [facility] [address] [place] [address] * Hepatitis B Surface Ag w/Reflex Confirmation (10/06/2024 3:00 AM EST) Only the most recent of4 resultswithin the time period is included. Hep B Surface Antigen Negative Negative [facility] 10/06/2024 3:00 AM EST 10/07/2024 2:05 PM EST us Jerman Keene MD LAB BLOOD ORDERABLES Final Resu lt Performing Organization Address [facility] de Phone Number [facility] [address] [place] [address] * (ABNORMAL) TSAT (10/06/2024 3:00 AM EST) Only the most recent of4 resultswithin the time period is included. Iron 52(L) 65 - 175 ug/dL [facility] Transferrin 179(L) 215 - 365 mg/dL [facility] TIBC 251 211 - 406 ug/dL [facility] Iron Saturation (TSat) 21(L) 22 - 52 % [facility] 10/06/2024 3:00 AM EST 10/07/2024 2:05 PM EST us Jerman Keene MD LAB BLOOD ORDERABLES Final Resu lt Performing Organization Address [facility] de Phone Number [facility] [address] [place] [address] * Glucose, urine, 24 hour (10/06/2024 3:00 AM EST) Only the most recent of3 resultswithin the time period is included. Glucose 24 HR Dial 1,080 mg/dL [facility] 10/06/2024 3:00 AM EST 10/08/2024 2:35 PM EST us Jerman Keene MD LAB URINE ORDERABLES Final Resu lt Performing Organization Address [facility] de Phone Number [facility] [address] [place] [address] * (ABNORMAL) CBC and Differential (10/06/2024 3:00 AM EST) Only the most recent of3 resultswithin the time period is included. Pathologist [facility] DIFFERENTIAL MANUAL, 2 Not Indicated [facility] White Blood Cells 9.7(H) 4.2 - 9.1 K/uL [facility] RBC 3.89(L) 4.63 - 6.08 M/uL [facility] Hgb 12.3(L) 13.7 - 17.5 g/dL [facility] Hemoglobin x 3 36.9(L) 41.1 - 52.5 g/dL [facility] Hematocrit 38.8(L) 40.1 - 51.0 % [facility] MCV 99.7(H) 79.0 - 92.2 fL [facility] MCH 31.6 25.7 - 32.2 pg [facility] MCHC 31.7(L) 32.3 - 36.5 g/dL [facility] Platelets 253 163 - 337 K/uL [facility] RDW 15.4(H) 11.6 - 14.4 % [facility] Neutrophils Relative 68.3(H) 34.0 - 67.9 % [facility] Lymphocytes Relative 16.9(L) 21.8 - 53.1 % [facility] Monocytes 9.4 5.3 - 12.2 % [facility] Eosinophils Relative 4.3 0.8 - 7.0 % [facility] Basophils Relative 0.4 0.2 - 1.2 % [facility] Immature Granulocytes 0.7 0.0 - 1.0 % [facility] 10/06/2024 3:00 AM EST 10/08/2024 2:18 PM EST us Jerman Keene MD LAB BLOOD ORDERABLES Final Resu lt [facility] [address] [place] [address] * ALT (10/06/2024 3:00 AM EST) Only the most recent of4 resultswithin the time period is included. Pathologist [facility] ALT (SGPT) 16 10 - 49 U/L [facility] 10/06/2024 3:00 AM EST 10/07/2024 2:05 PM EST us Jerman Keene MD LAB BLOOD ORDERABLES Final Resu lt Performing Organization Address [facility]/ZIP Co de Phone Number [facility] [address] [place] [address] * AST (10/06/2024 3:00 AM EST) Only the most recent of4 resultswithin the time period is included. AST (SGOT) 25 <34 U/L [facility] 10/06/2024 3:00 AM EST 10/07/2024 2:05 PM EST us Jerman Keene MD LAB BLOOD ORDERABLES Final Resu lt Performing Organization Address [facility] de Phone Number [facility] [address] [place] [address] * Protein, total (10/06/2024 3:00 AM EST) Only the most recent of4 resultswithin the time period is included. Total Protein 6.8 6.4 - 8.9 g/dL [facility] 10/06/2024 3:00 AM EST 10/07/2024 2:05 PM EST us Jerman Keene MD LAB BLOOD ORDERABLES Final Resu lt Performing Organization Address [facility] de Phone Number [facility] [address] [place] [address] * Alkaline phosphatase (10/06/2024 3:00 AM EST) Only the most recent of4 resultswithin the time period is included. Alkaline Phosphatase 55 46 - 116 U/L [facility] 10/06/2024 3:00 AM EST 10/07/2024 2:05 PM EST us Jerman Keene MD LAB BLOOD ORDERABLES Final Resu lt Performing Organization Address [facility] Co de Phone Number [facility] [address] [place] [address] * (ABNORMAL) PTH, Intact (10/06/2024 3:00 AM EST) Only the most recent of4 resultswithin the time period is included. PTH, Intact 95(L) 160 - 721 pg/mL [facility] Comment: Suggested (KDIGO) ESRD maintenance range is two to nine times the upper normal limit (80.1 pg/mL) for the laboratory. 10/06/2024 3:00 AM EST 10/07/2024 2:05 PM EST us Jerman Keene MD LAB BLOOD ORDERABLES Final Resu lt Performing Organization Address City/[facility] Co de Phone Number [facility] [address] [place] [address] * Magnesium (10/06/2024 3:00 AM EST) Only the most recent of4 resultswithin the time period is included. Magnesium 1.9 1.9 - 2.7 mg/dL [facility] 10/06/2024 3:00 AM EST 10/07/2024 2:05 PM EST us Jerman Keene MD LAB BLOOD ORDERABLES Final Resu Performing Organization Address [facility] Co de Phone Number [facility] [address] [place] [address] * (ABNORMAL) Lactate dehydrogenase (10/06/2024 3:00 AM EST) Only the most recent of4 resultswithin the time period is included. LDH 260(H) 120 - 246 U/L [facility] 10/06/2024 3:00 AM EST 10/07/2024 2:05 PM EST us Jerman Keene MD LAB BLOOD ORDERABLES Final Resu lt Performing Organization Address [facility] Co de Phone Number [facility] [address] [place] [address] * Glucose, random (10/06/2024 3:00 AM EST) Only the most recent of4 resultswithin the time period is included. Glucose 90 74 - 109 mg/dL [facility] 10/06/2024 3:00 AM EST 10/07/2024 2:05 PM EST us Jerman Keene MD LAB BLOOD ORDERABLES Final Resu lt Performing Organization Address [facility] Co de Phone Number [facility] [address] [place] [address] * Ferritin (10/06/2024 3:00 AM EST) Only the most recent of4 resultswithin the time period is included. Ferritin 204 22 - 322 ng/mL [facility] 10/06/2024 3:00 AM EST 10/07/2024 2:05 PM EST us Jerman Keene MD LAB BLOOD ORDERABLES Final Resu Performing Organization Address [facility] de Phone Number [facility] [address] [place] [address] * Bilirubin, total (10/06/2024 3:00 AM EST) Only the most recent of4 resultswithin the time period is included. Total Bilirubin 0.3 0.3 - 1.2 mg/dL [facility] 10/06/2024 3:00 AM EST 10/07/2024 2:05 PM EST us Jerman Keene MD LAB BLOOD ORDERABLES Final Resu lt Performing Organization Address [facility] de Phone Number [facility] [address] [place] [address] * Electrolyte panel (10/06/2024 3:00 AM EST) Only the most recent of4 resultswithin the time period is included. Sodium 138 136 - 145 mEq/L [facility] Potassium 4.1 3.4 - 5.0 mEq/L [facility] Chloride 103 98 - 107 mEq/L [facility] Bicarbonate (CO2) 27 21 - 31 mEq/L [facility] Anion Gap 8 3 - 14 mEq/L [facility] 10/06/2024 3:00 AM EST 10/07/2024 2:05 PM EST us Jerman Keene MD LAB BLOOD ORDERABLES Final Resu lt Performing Organization Address [facility] de Phone Number [facility] [address] [place] [address] * Confirmation Test HCV (09/11/2024 3:00 AM EST) Hep C Ab Confirmation Not needed [facility] 09/11/2024 3:00 AM EST 09/15/2024 2:01 PM EST us Jerman Keene MD LAB BLOOD ORDERABLES Final Resu lt Performing Organization Address [facility] de Phone Number [facility] [address] [place] [address] * Collection Date (09/11/2024 3:00 AM EST) Collection Date See Comment [facility] Comment: Patient sample received may exceed specimen stability, based on the collection date electronically provided. ??When reviewing patient results, verify collection information and consider specimen stability before acting on any critical or panic results. 09/11/2024 3:00 AM EST us Jerman Keene MD LAB [id number] LICITED RESULTS Final Result Performing Organization Address [facility] de Phone Number [facility] [address] [place] [address] * HEPATITIS C ABS W/REFLEX RNA DETECTR (09/11/2024 3:00 AM EST) Hep C Virus Ab Non-Reacti ve Non-Reacti ve [facility] 09/11/2024 3:00 AM EST 09/15/2024 1:11 PM EST us Jerman Keene MD LAB [id number] LICITED RESULTS Final Result Performing Organization [facility] Co de Phone Number [facility] [address] [place] [address] * Aluminum level (09/11/2024 3:00 AM EST) Pathologist [facility] Aluminum 2 1 - 20 ug/L [facility] 09/11/2024 3:00 AM EST 09/15/2024 1:34 PM EST us Jerman Keene MD LAB BLOOD ORDERABLES Final Resu lt Performing Organization Address [facility] Co de Phone Number [facility] [address] [place] [address] * (ABNORMAL) Hepatitis B Surface Antibody (09/11/2024 3:00 AM EST) Pathologist [facility] Hep B Surface Antibody <4(A) mIU/mL [facility] Comment: Interpretation: <10: No Immunity >=10: Probable Immunity 09/11/2024 3:00 AM EST 09/15/2024 1:11 PM EST us Jerman Keene MD LAB BLOOD ORDERABLES Final Resu lt Performing Organization Address [facility] de Phone Number [facility] [address] [place] [address] * (ABNORMAL) Hemoglobin (09/11/2024 3:00 AM EST) Hgb 11.9(L) 13.7 - 17.5 g/dL [facility] Hemoglobin x 3 35.7(L) 41.1 - 52.5 g/dL [facility] 09/11/2024 3:00 AM EST 09/15/2024 2:01 PM EST us Jerman Keene MD LAB BLOOD ORDERABLES Final Resu lt Performing Organization Address [facility] Co de Phone Number [facility] [address] [place] [address] * Uric Acid (09/11/2024 3:00 AM EST) Uric Acid 5.2 4.4 - 7.6 mg/dL [facility] 09/11/2024 3:00 AM EST 09/15/2024 1:11 PM EST us Jerman Keene MD LAB BLOOD ORDERABLES Final Resu lt Performing Organization Address [facility] de Phone Number [facility] [address] [place] [address] * (ABNORMAL) BUN (09/11/2024 3:00 AM EST) Only the most recent of2 resultswithin the time period is included. BUN 55(H) 7 - 25 mg/dL [facility] 09/11/2024 3:00 AM EST 09/15/2024 1:11 PM EST us Jerman Keene MD LAB BLOOD ORDERABLES Final Resu lt Performing Organization Address [facility] de Phone Number [facility] [address] [place] [address] * (ABNORMAL) Hemoglobin A1c (09/11/2024 3:00 AM EST) Hemoglobin A1C 6.2(H) <5.7 % [facility] Comment: Methodology: Enzymatic HbA1c (NGSP %) ?Suggested Diagnosis >6.4% ? Diabetic 5.7-6.4% ?Pre-Diabetic <5.7% ? Non-Diabetic Diabetic Glucose Control Evaluation: Therapeutic action suggested at >8.0% ADA recommends a glycemic goal of <7.0% 09/11/2024 3:00 AM EST 09/15/2024 2:01 PM EST us Jerman Keene MD LAB BLOOD ORDERABLES Final Resu lt Performing Organization Address [facility] de Phone Number [facility] [address] [place] [address] * (ABNORMAL) Creatinine, serum (09/11/2024 3:00 AM EST) Only the most recent of2 resultswithin the time period is included. Creatinine 4.51(H) 0.70 - 1.30 mg/dL [facility] 09/11/2024 3:00 AM EST 09/15/2024 1:11 PM EST us Jerman Keene MD LAB BLOOD ORDERABLES Final Resu lt [facility] [address] [place] [address] * (ABNORMAL) Lipid panel (09/11/2024 3:00 AM EST) Cholesterol 144 <200 mg/dL [facility] Comment: Optimal: ?<200 Borderline: ? 200-239 Higher Risk: ?>239 Triglycerides 268(A) <150 mg/dL [facility] Comment: Optimal: ?<150 Borderline High: ??150-199 High: ? 200-499 Very High: ?>499 HDL 24(A) >59 mg/dL [facility] Comment: Desirable: ?>59 Higher Risk: ?<40 LDL-Calc 66 <100 mg/dL [facility] Comment: Optimal: ?<100 Above Optimal: ?100-129 Borderline High: ??130-159 High: ? 160-189 Very High: ?>189 VLDL Cholesterol Trino 54(A) <30 mg/dL [facility] Comment: Optimal: ?<30 Borderline High: ??30-39 High: ? 40-99 Very High: ?>99 Chol/HDL Ratio 6.0(A) <3.3 [facility] Comment: Optimal: ?<3.3 Higher Risk: ?>6.2 09/11/2024 3:00 AM EST 09/15/2024 1:11 PM EST us Jerman Keene MD LAB BLOOD ORDERABLES Final Resu lt Performing Organization Address City/State/[facility] Co de Phone Number [facility] [address] [place] [address] from Last 3 Months Insurance , [address] [address] [facility] MEDICARE , [address] [address] [facility] MED[facility] Care Teams Weigher And Crusher Relationship Specialty Start Date End Date Tramaine Calzada CNP [address] [place] [address] PCP - General 03/02/23
[2024-10-10 09:46] VITALS: BP 134/60
== END 2024-10-10 10:00 | disposition home or self-care (01) ==
PROVIDERS: PCP Nurse Practitioner Family; Visit Provider Nurse Practitioner Family
DX: I10 Essential (primary) hypertension (principal); Z09 Encounter for follow-up examination after completed treatment for conditions other than malignant neoplasm; T07.XXXA Unspecified multiple injuries, initial encounter

== ENCOUNTER → 2024-10-10 09:01 | Outpatient (BNVA) | payer MEDICARE, SELFPAY | PROVIDERS: PCP Nurse Practitioner Family; Visit Provider Nurse Practitioner Family | DX: Z09 Encounter for follow-up examination after completed treatment for conditions other than malignant neoplasm (principal); I10 Essential (primary) hypertension; T07.XXXD Unspecified multiple injuries, subsequent encounter | CPT/HCPCS: 99212 ==

== ENCOUNTER 2024-10-22 09:21 | Outpatient (REF) | payer MEDICARE, SELFPAY ==
--- OUTSIDE RECORDS SUMMARY | 2024-10-22 09:37 | XMS_ITS | Continuity of Care Document ---
Author Organization [facility] [address] [facility] [address] [place] [address] Phone [phone] Care Team Providers Care Retail Zone Specialist Name Role Phone Elsi Redd CNP Care Team Information Receive r [phone] Problems Active Problems Provider Date Chronic kidney [...] Qnty Indications Order ing Provider Date Rosuvastatin Taocrvp78br Tablets Take 1 Tablet By Mouth Daily Elsi Redd CNP Snvjdfypv46mk Tablets Take 1 Tablet By Mouth Daily Elsi Redd CNP Kfcboqdljl93sk Tablets Take 1 Tablet By Mouth Twice Daily - Must Take With Meal / Food Elsi Redd CNP Isosorbide Mononitrate ER30mg Tablets ER 24HR Take 1 Tablet By Mouth Twice A Day Unknown Lantus Ozktgqcw132Khks/ML Solution Pen-Inject Inject 80 Units Subcutaneously Twice Daily 45ml Evan Lopez M.D. Sfkjjhqgzvv701wv Tablets Take 1 Tablet By Mouth Daily Elsi Redd CNP Insulin Lispro (1 Unit Dial)100Unit/ML Solution Pen-Inject inject up to 25 units four times daily 45ml Evan Lopez M.D. Qxnxiwjnukx441gl Tablets 1 by mouth every day 90tabs Unknown 000 Ranolazine PV585wz Tablets ER 12HR Take 1 Tablet By Mouth Twice Daily Elsi Redd CNP Zrwffhebmo644rf Capsules Unknown Losartan Potassium/Hydrochlo hibfiiqsai846-78fe Tablets Take 1 Tablet By Mouth Every [...] 104 Procedures Date Code Description Status 05/07/2024 76614 Glucose Monitoring Interpeta tion And Report Completed [...]
--- OUTSIDE RECORDS SUMMARY | 2024-10-22 09:37 | XMS_ITS | Encounter Summary ---
Author Organization [facility] Address [address] [place] [address] Phone Care Team Providers Care Technicians And Trades Workers Name Role Phone Tramaine Calzada CNP Primary Care Provider [phone] Encounter Details Date Type Department Care Team (Late st Contact Info) Description 05/13/2024 Office Communication [facility] [address] [place] [phone] Mary Valero, MARY [address] [place] [address] Social History Tobacco Use Types Packs/Day Years [...] on filedocumented in this encounter Care Teams Technicians And Trades Workers Relationship Specialty Start Date End Date Tramaine Calzada CNP [address] [place], [place] [phone] PCP - General 03/02/23 documented as of this encounter
--- OUTSIDE RECORDS SUMMARY | 2024-10-22 09:37 | XMS_ITS | Encounter Summary ---
Author Organization [facility] Address [address] [address] Phone Care Team Providers Care Meter And Service Line Inspector Name Role Phone Tramaine Calzada CNP Primary Care Provider [phone] Encounter Details Date Type Department Care Team (Late st Contact Info) Description 10/15/2024 Treatment [facility]. [address] [phone] Jerman Dong MD [address] [phone] Social History Tobacco Use Types Packs/Day Years [...] Dialysis Note - Jerman Dong MD - 10/15/2024 12:00 AM EST Patient: Nikita Forte : 1955 Note Type: Dialysis Rounds-PD Service Date: 10/15/2024 This patient was personally seen for a complete visit as part of routine monthly dialysis care for end stage renal disease. Attending Natural Foods Clerk: JERMAN DONG MD Dialysis Location: [facility] DIALYS[facility] Patient is stable. COMMENTS: On PD . HOME MEDICATIONS Medications reviewed. Current [facility] Outpatient Medications aspirin EC tablet Take 81 mg by mouth 1 (one) time each day Start Date: B Ropdsao-M-Bdbvi Acid (B complex-vitamin C-folic acid) 1 MG [...] evening. Take with meals. Start Date: cloNIDine (Aduidbvs-MOR-6) 0.2 MG/24HR patch weekly Place 1 patch [...] Prescription compliance acceptable. COMMENTS: Repeat Kt/V, Total 4.09 (10/06/24) 2.61 (07/23/24) 1.57 (07/11/24) Kt/V, Residual 3.36 (10/06/24) 1.86 (07/23/24) 0.76 (07/11/24) BUN 30 (10/06/24) 55 (09/11/24) 51 (08/11/24) Creatinine 3.00 (10/06/24) 4.51 (09/11/24) 4.14 (08/11/24) Bicarbonate (CO2) 27 (10/06/24) 24 (09/11/24) 26 (08/11/24) Sodium 138 (10/06/24) 140 (09/11/24) 139 (08/11/24) Urine Volume 2,300 (10/06/24) 2,100 (07/23/24) 900 (07/11/24) ACCESS ASSESSMENT Access is good. Exit site looks clean. Tunnel tract without sign of infection. Peritoneal fluid is clear. ANEMIA ASSESSMENT Anemia targets met. EVELYN not administered secondary to recent history of malignancy. Iron adjusted per protocol. Hgb 12.3 (10/06/24) 11.9 (09/11/24) 11.8 (08/11/24) Hemoglobin 11.3 (04/10/24) Iron Saturation (TSat) 21 (10/06/24) 21 (09/11/24) 26 (08/11/24) Ferritin 204 (10/06/24) 159 (09/11/24) 155 (08/11/24) Iron 52 (10/06/24) 62 (09/11/24) 75 (08/11/24) TIBC 251 (10/06/24) 290 (09/11/24) 293 (08/11/24) MCV 99.7 (10/06/24) 98.4 (08/11/24) 99.7 (07/11/24) Platelets 253 (10/06/24) 260 (08/11/24) 222 (07/11/24) BMM ASSESSMENT PTH low. Vitamin D analogue initiated / adjusted. Phosphorus controlled. Calcium controlled. Bone and mineral metabolism parameters reviewed. Calcium, Adjusted Total 9.5 10/06/24 9.6 09/11/24 9.4 08/11/24 Calcium 9.5 10/06/24 9.6 09/11/24 9.4 08/11/24 Phosphorus, Serum 2.3 10/06/24 4.3 09/11/24 3.6 08/11/24 Phosphorus 4.5 05/15/24 4.7 04/10/24 Ca*PO4 21.8 10/06/24 41.3 09/11/24 33.8 08/11/24 PTH, Intact 95 10/06/24 92 09/11/24 107 08/11/24 PTH 142 04/10/24 Vitamin D, 25-OH, Total 23.9 04/10/24 Vitamin D, 25-Hydroxy 31.0 01/25/24 Magnesium 1.9 10/06/24 2.0 09/11/24 1.9 08/11/24 Alkaline Phosphatase 55 10/06/24 44 09/11/24 40 08/11/24 Aluminum 2 09/11/24 2 06/25/24 NUTRITION ASSESSMENT Albumin at goal. Potassium controlled. Albumin 4.0 10/06/24 4.3 09/11/24 4.3 08/11/24 Potassium 4.1 10/06/24 4.4 09/11/24 3.8 08/11/24 Hemoglobin A1C 6.2 09/11/24 TRANSPLANT STATUS COMMENT COMMENTS: In process needs AVR - having a cath PHYSICAL EXAM Exam performed. Vital Signs Reviewed. Lungs - Clear. CV - Blood pressure noted. No edema. EXT - No ulcers. ADDITIONAL LABS INR 1.0 (04/10/24) White Blood Cells 9.7 (10/06/24) 8.9 (08/11/24) 9.3 (07/11/24) WBC 8.5 (04/10/24) WBC 13.2 (01/25/24) Cholesterol 144 (09/11/24) HDL 24 (09/11/24) LDL-Calc 66 (09/11/24) Triglycerides 268 (09/11/24) Hep B Surface Antibody <4 (09/11/24) NONREACTIVE (05/16/24) Hepatitis B Surface Ab <3.5 (06/21/24) <3.5 (04/10/24) Uric Acid 5.2 (09/11/24) ADDITIONAL COMMENT COMMENTS: Transplant - off the list until he gets TAVR Signed by: JERMAN DONG MD on 10/15/2024 at 11:24:39 AM documented in this encounter Plan of Treatment Not on file documented as of this encounter Visit Diagnoses Not on filedocumented in this encounter Care Teams Meter And Service Line Inspector Relationship Specialty Start Date End Date Tramaine Calzada CNP [address] [place] [address] PCP - General 03/02/23 documented as of this encounter
--- OUTSIDE RECORDS SUMMARY | 2024-10-22 09:37 | XMS_ITS | Clinical Summary ---
Author Organization [facility] Address [address] [facility] [address] [place] [address] Phone Care Team Providers Care Communications Tower Climber Name Role Phone Tramaine Calzada CNP Primary Care Provider [phone] Allergies Active Allergy Reactions Criticality Noted Date [...] capsule 3 4 02/14/20 25 Active cloNIDine (Oivgpbju-GKO-1 ) 0.2 MG/24HR patch weekly Place 1 [...] tablet 3 4 07/23/20 25 Active B Fgquvqs-I-Uyryj Acid (B complex-vitamin C-folic acid) 1 MG [...] Encounters Date Type Department Care Team Description 10/15/2024 Treatment [facility] [address] [address] Jerman Keene MD 09/17/2024 Treatment [facility] [address] [address] Jerman Keene MD 07/23/2024 Treatment [facility] [address] [address] Jerman Keene MD from Last 3 Months [...] BUNDLED Routine 07/23/2024 3 :00 AM EST from Last 3 Months Results * (ABNORMAL) PD Adequecy Bundled (10/06/2024 3:00 AM EST) Only the most recent of2 resultswithin the time period is included. Patient Height (FT) 187.9 cm [facility] Dry Weight 119.0 kg [facility] Body Surface Area 2.44 m2 [facility] Comment:Body surface area es timated from Louisa and Louisa formula Total Body Water 57.9 L [facility] Comment:Volume of distributi on estimated from Adebayo and Weyers formula Creatinine 3.00(H) 0.70 - [...] Final Resu lt [facility] [address] [place] [address] * LIH (10/06/2024 3:00 AM EST) Only the most recent of4 resultswithin the time period is included. Lipemia Normal Normal [facility] Icterus Normal Normal [facility] Hemolysis Normal Normal [facility] 10/06/2024 3:00 AM EST 10/07/2024 2:05 PM EST us Jerman Keene MD LAB [id number] LICITED RESULTS Final Result Performing Organization Address [facility] de Phone Number [facility] [address] [place] [address] * (ABNORMAL) Calcium Phosphorus Product, Adjusted (10/06/2024 3:00 AM EST) Only the most recent of3 resultswithin the time period is included. Albumin 4.0 3.6 - 5.4 g/dL [facility] Calcium 9.5 8.6 - 10.3 mg/dL [facility] Phosphorus, Serum 2.3(L) 2.5 - 5.0 mg/dL [facility] Ca*PO4 21.8 <55.0 mg2/dL2 [facility] Calcium, Adjusted Total 9.5 8.6 - 10.3 mg/dL [facility] CA*PO4 CORRCTD 21.8 <55.0 mg2/dL2 [facility] 10/06/2024 3:00 AM EST 10/07/2024 2:05 PM EST us Jerman Keene MD LAB [id number] LICITED RESULTS Final Result Performing Organization Address City/[facility]/ZIP Co de Phone Number [facility] [address] [place] [address] * Hepatitis B Surface Ag w/Reflex Confirmation (10/06/2024 3:00 AM EST) Only the most recent of3 resultswithin the time period is included. Hep B Surface Antigen Negative Negative [facility] 10/06/2024 3:00 AM EST 10/07/2024 2:05 PM EST us Jerman Keene MD LAB BLOOD ORDERABLES Final Resu lt Performing Organization Address [facility] Co de Phone Number [facility] [address] [place] [address] * (ABNORMAL) TSAT (10/06/2024 3:00 AM EST) Only the most recent of3 resultswithin the time period is included. Iron 52(L) 65 - 175 ug/dL [facility] Transferrin 179(L) 215 - 365 mg/dL [facility] TIBC 251 211 - 406 ug/dL [facility] Iron Saturation (TSat) 21(L) 22 - 52 % [facility] 10/06/2024 3:00 AM EST 10/07/2024 2:05 PM EST us Jerman Keene MD LAB BLOOD ORDERABLES Final Resu lt Performing Organization Address [facility] Co de Phone Number [facility] [address] [place] [address] * Glucose, urine, 24 hour (10/06/2024 3:00 AM EST) Only the most recent of2 resultswithin the time period is included. Glucose 24 HR Dial 1,080 mg/dL [facility] 10/06/2024 3:00 AM EST 10/08/2024 2:35 PM EST us Jerman Keene MD LAB URINE ORDERABLES Final Resu lt [facility] [address] [place] [address] * (ABNORMAL) CBC and Differential (10/06/2024 3:00 AM EST) Only the most recent of2 resultswithin the time period is included. DIFFERENTIAL MANUAL, 2 Not Indicated [facility] White [...] ORDERABLES Final Resu lt Performing Organization Address City/[facility]/ZIP Co de Phone Number [facility] [address] [place] [address] * ALT (10/06/2024 3:00 AM EST) Only the most recent of3 resultswithin the time period is included. Pathologist [facility] ALT (SGPT) 16 10 - 49 U/L [facility] 10/06/2024 3:00 AM EST 10/07/2024 2:05 PM EST us Jerman Keene MD LAB BLOOD ORDERABLES Final Resu lt Performing Organization Address [facility] Co de Phone Number [facility] [address] [place] [address] * AST (10/06/2024 3:00 AM EST) Only the most recent of3 resultswithin the time period is included. AST (SGOT) 25 <34 U/L [facility] 10/06/2024 3:00 AM EST 10/07/2024 2:05 PM EST us Jerman Keene MD LAB BLOOD ORDERABLES Final Resu lt Performing Organization Address [facility] de Phone Number [facility] [address] [place] [address] * Protein, total (10/06/2024 3:00 AM EST) Only the most recent of3 resultswithin the time period is included. Total Protein 6.8 6.4 - 8.9 g/dL [facility] 10/06/2024 3:00 AM EST 10/07/2024 2:05 PM EST us Jerman Keene MD LAB BLOOD ORDERABLES Final Resu lt Performing Organization Address [facility] de Phone Number [facility] [address] [place] [address] * Alkaline phosphatase (10/06/2024 3:00 AM EST) Only the most recent of3 resultswithin the time period is included. Alkaline Phosphatase 55 46 - 116 U/L [facility] 10/06/2024 3:00 AM EST 10/07/2024 2:05 PM EST us Jerman Keene MD LAB BLOOD ORDERABLES Final Resu lt Performing Organization Address [facility] de Phone Number [facility] [address] [place] [address] * (ABNORMAL) PTH, Intact (10/06/2024 3:00 AM EST) Only the most recent of3 resultswithin the time period is included. PTH, Intact 95(L) 160 - 721 pg/mL [facility] Comment: Suggested (KDIGO) ESRD maintenance range is two to nine times the upper normal limit (80.1 pg/mL) for the laboratory. 10/06/2024 3:00 AM EST 10/07/2024 2:05 PM EST us Jerman Keene MD LAB BLOOD ORDERABLES Final Resu lt Performing Organization Address [facility] Phone Number [facility] [address] [place] [address] * Magnesium (10/06/2024 3:00 AM EST) Only the most recent of3 resultswithin the time period is included. Magnesium 1.9 1.9 - 2.7 mg/dL [facility] 10/06/2024 3:00 AM EST 10/07/2024 2:05 PM EST us Jerman Keene MD LAB BLOOD ORDERABLES Final Resu lt Performing Organization Address [facility] de Phone Number [facility] [address] [place] [address] * (ABNORMAL) Lactate dehydrogenase (10/06/2024 3:00 AM EST) Only the most recent of3 resultswithin the time period is included. LDH 260(H) 120 - 246 U/L [facility] 10/06/2024 3:00 AM EST 10/07/2024 2:05 PM EST us Jerman Keene MD LAB BLOOD ORDERABLES Final Resu lt Performing Organization Address [facility]/ZIP Co de Phone Number [facility] [address] [place] [address] * Glucose, random (10/06/2024 3:00 AM EST) Only the most recent of3 resultswithin the time period is included. Glucose 90 74 - 109 mg/dL [facility] 10/06/2024 3:00 AM EST 10/07/2024 2:05 PM EST us Jerman Keene MD LAB BLOOD ORDERABLES Final Resu lt Performing Organization Address [facility] Co de Phone Number [facility] [address] [place] [address] * Ferritin (10/06/2024 3:00 AM EST) Only the most recent of3 resultswithin the time period is included. Ferritin 204 22 - 322 ng/mL [facility] 10/06/2024 3:00 AM EST 10/07/2024 2:05 PM EST us Jerman Keene MD LAB BLOOD ORDERABLES Final Resu lt Performing Organization Address [facility] de Phone Number [facility] [address] [place] [address] * Bilirubin, total (10/06/2024 3:00 AM EST) Only the most recent of3 resultswithin the time period is included. Total Bilirubin 0.3 0.3 - 1.2 mg/dL [facility] 10/06/2024 3:00 AM EST 10/07/2024 2:05 PM EST us Jerman Keene MD LAB BLOOD ORDERABLES Final Resu lt Performing Organization Address [facility] Co de Phone Number [facility] [address] [place] [address] * Electrolyte panel (10/06/2024 3:00 AM EST) Only the most recent of3 resultswithin the time period is included. Sodium [...] ORDERABLES Final Resu lt Performing Organization Address [facility] de Phone Number [facility] [address] [place] [address] * Confirmation Test HCV (09/11/2024 3:00 AM EST) Pathologist [facility] Hep C Ab Confirmation Not needed [facility] 09/11/2024 3:00 AM EST 09/15/2024 2:01 PM EST us Jerman Keene MD LAB BLOOD ORDERABLES Final Resu lt Performing Organization Address [facility] de Phone Number [facility] [address] [place] [address] * Collection Date (09/11/2024 3:00 AM EST) [facility] Collection Date See Comment [facility] Comment: Patient sample received may exceed specimen stability, based on the collection date electronically provided. ??When reviewing patient results, verify collection information and consider specimen stability before acting on any critical or panic results. 09/11/2024 3:00 AM EST us Jerman Keene MD LAB [id number] LICITED RESULTS Final Result Performing Organization Address [facility] de Phone Number [facility] [address] [place] [address] * HEPATITIS C ABS W/REFLEX RNA DETECTR (09/11/2024 3:00 AM EST) Pathologist [facility] Hep C Virus Ab Non-Reacti ve Non-Reacti ve [facility] 09/11/2024 3:00 AM EST 09/15/2024 1:11 PM EST us Jerman Keene MD LAB [id number] LICITED RESULTS Final Result Performing Organization Address [facility] de Phone Number [facility] [address] [place] [address] * Aluminum level (09/11/2024 3:00 AM EST) Aluminum 2 1 - 20 ug/L [facility] 09/11/2024 3:00 AM EST 09/15/2024 1:34 PM EST us Jerman Keene MD LAB BLOOD ORDERABLES Final Resu lt Performing Organization Address [facility] de Phone Number [facility] [address] [place] [address] * (ABNORMAL) Hepatitis B Surface Antibody (09/11/2024 3:00 AM EST) Hep B Surface Antibody <4(A) mIU/mL [facility] Comment: Interpretation: <10: No Immunity >=10: Probable Immunity 09/11/2024 3:00 AM EST 09/15/2024 1:11 PM EST us Jerman Keene MD LAB BLOOD ORDERABLES Final Resu lt Performing Organization Address [facility] de Phone Number [facility] [address] [place] [address] * (ABNORMAL) Hemoglobin (09/11/2024 3:00 AM EST) Hgb 11.9(L) 13.7 - 17.5 g/dL [facility] Hemoglobin x 3 35.7(L) 41.1 - 52.5 g/dL [facility] 09/11/2024 3:00 AM EST 09/15/2024 2:01 PM EST us Jerman Keene MD LAB BLOOD ORDERABLES Final Resu lt Performing Organization Address [facility] de Phone Number [facility] [address] [place] [address] * Uric Acid (09/11/2024 3:00 AM EST) Uric Acid 5.2 4.4 - 7.6 mg/dL [facility] 09/11/2024 3:00 AM EST 09/15/2024 1:11 PM EST us Jerman Keene MD LAB BLOOD ORDERABLES Final Resu lt Performing Organization Address [facility] de Phone Number [facility] [address] [place] [address] * (ABNORMAL) BUN (09/11/2024 3:00 AM EST) Only the most recent of2 resultswithin the time period is included. BUN 55(H) 7 - 25 mg/dL [facility] 09/11/2024 3:00 AM EST 09/15/2024 1:11 PM EST us Jerman Keene MD LAB BLOOD ORDERABLES Final Resu lt Performing Organization Address [facility] de Phone Number [address] [address] * (ABNORMAL) Hemoglobin A1c (09/11/2024 3:00 AM [...] ORDERABLES Final Resu lt Performing Organization Address [facility] de Phone Number [facility] [address] [place] [address] * (ABNORMAL) Creatinine, serum (09/11/2024 3:00 AM EST) Only the most recent of2 resultswithin the time period is included. Creatinine 4.51(H) 0.70 - 1.30 mg/dL [facility] 09/11/2024 3:00 AM EST 09/15/2024 1:11 PM EST Jerman Keene MD LAB BLOOD ORDERABLES Final Resu lt Performing Organization Address [facility] de Phone Number [facility] [address] [place] [address] * (ABNORMAL) Lipid panel (09/11/2024 3:00 AM [...] Final Resu lt [facility] [address] [place] [address] from Last 3 Months Insurance , [address] [address] [facility] , [address] [address] [facility] MED[facility] Care Teams Communications Tower Climber Relationship Specialty Start Date End Date Tramaine Calzada CNP [address] [place] [address] PCP - General 03/02/23
--- OUTSIDE RECORDS SUMMARY | 2024-10-22 09:37 | XMS_ITS | Encounter Summary ---
Author Organization [facility] Address [address] [place] [address] Phone Care Team Providers Care Trains Dispatcher Supervisor Name Role Phone Tramaine Calzada CNP Primary Care Provider Encounter Details Date Type Department Care Team (Late st Contact Info) Description 06/24/2024 Office Communication [facility] [address] [place] [phone] Erin Morley, RN [address] [place] [address] Social History Tobacco Use Types Packs/Day Years [...] on filedocumented in this encounter Care Teams Trains Dispatcher Supervisor Relationship Specialty Start Date End Date Tramaine Calzada CNP [address] [place], [place] [phone] PCP - General 03/02/23 documented as of this encounter
--- OUTSIDE RECORDS SUMMARY | 2024-10-22 09:37 | XMS_ITS | Encounter Summary ---
Author Organization [facility] Address [address] [address] Phone Care Team Providers Care Ammonia Still Operator Name Role Phone Tramaine Calzada CNP Primary Care Provider [phone] Reason for Visit * Reason Onset Date Comments Med Refill 05/20/2024 Encounter Details Date Type Department Care Team (Late st Contact Info) Description 05/20/2024 Refill [facility] P.. [address] [place] [phone] Jerman Keene MD [address] [address] Social History Tobacco Use Types [...] on filedocumented in this encounter Care Teams Ammonia Still Operator Relationship Specialty Start Date End Date Tramaine Calzada CNP [address] [place] [id number] PCP - General 03/02/23 documented as of this encounter
--- OUTSIDE RECORDS SUMMARY | 2024-10-22 09:37 | XMS_ITS | Encounter Summary ---
Author Organization [facility] Address [address] [place] [address] Encounter Details Date Type Department Care Team Description 2024-10-03 Telephone [facility] [address] [place] [address] Kerri Mohr Medication Reconciliation was successfully completed by the [facility]. ASSESSMENT No Information TREATMENT PLAN No Information
[2024-10-22 11:22] LABS: MANUAL DIFF FLAG NO
[2024-10-22 11:35] LABS: Basophils Absolute Auto 0.1 X10*3/uL (0.0-0.2); Basophils Percent Auto 0.6 % (0-2); Eosinophils Absolute Auto 0.4 X10*3/uL (0.0-0.4); Eosinophils Percent Auto 3.8 % (0-4); Hematocrit 39.8 % (42.0-52.0); Hemoglobin 12.9 g/dl (14.0-18.0); Imm Gran Abs Auto 0.06 X10*3/uL (0.00-0.03); Imm Gran Pct Auto 0.6 % (0.0-0.4); Lymphocytes Absolute Auto 1.7 X10*3/uL (1.2-4.9); Mean Corpuscular HGB Conc 32.4 g/dl (31.0-36.0); Mean Corpuscular Hemoglobin 31.9 pg (27.0-33.0); Mean Corpuscular Volume 98.5 fL (80.0-98.0); Mean Platelet Volume 9.4 fL (9.4-12.4); Neutrophils Absolute Auto 7.1 x10*3/uL (2.0-8.3); Platelet Count 234 X10*3/uL (160-400); Red Blood Count 4.04 X10*6/uL (4.60-5.80); Red Cell Distribution Width 15.4 % (11.0-16.0); White Blood Count 10.3 X10*3/uL (4.8-10.8)
[2024-10-22 11:41] LABS: Appearance Urine Clear; Color Urine Yellow; Glucose Urine UA Negative (Negative); Leukocyte Esterase Urine Negative (Negative); Nitrite Urine Negative (Negative); Specific Gravity - Urine 1.015 (1.005-1.025); UMIC TRIGGER UACC YES; Urine Blood Negative (Negative); Urine Ketones Negative (Negative); Urine Protein 100 (2+) mg/dL (Neg-Trace)
[2024-10-22 11:45] LABS: Bacteria Urine None Seen (None Seen); Hyaline Casts Urine 0-2 /LPF (0-2); RBC Urine 0-2 /HPF (0-2); Squamous Epithelial Cell Urine 0-2 /HPF (0-2); WBC Urine 0-5 /HPF (0-5)
[2024-10-22 12:04] LABS: Alanine Aminotransferase 19 U/L (0-40); Albumin Level 3.8 g/dL (3.5-5.0); Alkaline Phosphatase 56 U/L (39-117); Anion Gap 12 (12-20); Aspartate Amino Transferase 28 U/L (5-37); Bilirubin Direct 0.2 mg/dL (0.0-0.5); Bilirubin Total 0.5 mg/dL (0.0-1.0); Blood Urea Nitrogen 40 mg/dL (9-16); Calcium 9.2 mg/dL (8.4-10.2); Carbon Dioxide 28 mmol/L (22-29); Chloride 104 mmol/L (96-108); Cholesterol 131 mg/dL (<200); Estimated Glomerular Filt Rate 19; Glucose Fasting 104 mg/dL (60-99); HDL Cholesterol 26 mg/dL (>40); LDL Cholesterol Calculated 63 mg/dL (<100); Potassium 4.1 mmol/L (3.3-5.1); Sodium 140 mmol/L (135-145); Total Protein 7.5 g/dL (6.5-8.0); Triglycerides 214 mg/dL (<150)
[2024-10-22 12:09] LABS: TSH reflex Free T4 2.75 uIU/mL (0.32-4.0); Vitamin D 25-OH Total 26.8 ng/mL (>30)
[2024-10-28 23:23] LABS: PSA, Ultra Sensitive 0.43 ng/mL
== END 2024-10-22 09:22 | disposition home or self-care (01) ==
LOC: HO.WFDLDS 09:21
PROVIDERS: Visit Provider Nurse Practitioner Family
DX: Z00.00 Encounter for general adult medical examination without abnormal findings (principal); E78.00 Pure hypercholesterolemia, unspecified; Z12.5 Encounter for screening for malignant neoplasm of prostate
CPT/HCPCS: 36415; 80053; 80061; 80076; 81001; 82248; 82306; 84153; 84443; 85025

== ENCOUNTER 2024-10-23 12:11 | Outpatient (AMB) | payer MEDICARE, SELFPAY ==
--- NOTE | 2024-10-23 12:14 | MHC.PC.OV ---
Vital Signs 10/23/24 12:22 Height 6 ft 2 in Weight 262 lb BMI 33.6 BP 128/72 Blood Pressure Location Rt brachial Position Sitting Respiration 16 Pulse 61 Pulse Source Pulse Oximeter Temp 97.6 F Temp Source Oral Pulse Oximetry (%) 100 Oxygen Delivery Method Room Air Intake Visit Reasons: CPE, HTN Intake Note: patient here for CPE and follow up on HTN Product Engineer Required: No Allergies Sulfa (Sulfonamide Antibiotics) Allergy (Intermediate, Verified 10/23/24 12:46) Swelling Latex, Natural Rubber Allergy (Mild, Verified 10/23/24 12:46) Redness of Skin grapefruit Adverse Reaction (Unknown, Uncoded 10/23/24 12:46) Unknown Medication List - Last Reconciled 10/23/24 by Tramaine Calzada CNP allopurinol 300 mg PO DAILY 90 days aspirin (Adult Low Dose Aspirin) 81 mg PO DAILY carvedilol 25 mg PO BID 30 days cholecalciferol (vitamin D3) 50 mcg PO DAILY 90 days clonidine patches transdermal cyclobenzaprine 10 mg PO BID PRN fenofibrate 160 mg PO DAILY 30 days gabapentin 300 mg PO TID PRN insulin glargine (Lantus Solostar U-100 Insulin) 50 units (0.5 mL) subcut BID 30 days insulin lispro 1 sliding scale dose subcut USEASDIRECTD losartan 50 mg PO DAILY ranolazine ER 500 mg PO BID 30 days rosuvastatin (Crestor) 40 mg PO DAILY 30 days torsemide 20 mg PO DAILY 30 days tramadol 50 mg PO BEDTIME PRN Tobacco use date assessed: 10/23/24 Fall risk assessment: 2 + Falls in past year Last assessed Fall Risk: 10/23/24 Dental Screening Dental Screen Date: 10/23/24 Did you have a dental visit in the last 12 months?: No Did you have a dental problem in the last 6 months where you did not have access to dental care?: No Was dental information given to patient?: Patient has dentist HPI HPI Comments History of Present Illness Details 69-year-old male presents for an extended physical exam, hypertension, and review of recent lab results Acute issue(s) - HTN, DM, HLD - Rports chroniic left hip pain and right hip pain which started in mid September (On cyclobenzaprine). He has never had imaging of his right hip and does not recall imaging of his left hip. - He notes that he does peritoneal dialysis every day for 8 hours and monitored by Nephrology. - ALFREDO: He states that he receives monthly iron infusion from Nephrology. Past Medical History Hypertension, chronic diastolic heart failure, type 2 diabetes with neuropathy, MARY, morbid obesity, chronic low back pain, OA of left knee, glaucoma of both eyes, sleep apnea, adhesive capsulitis of right shoulder, stage 4 kidney disease, congenital solitary kidney, hyperlipidemia, vitamin-D deficiency, and multiple abdominal hernia. Social History - Nonsmoker. Does not vape. Drinks 1 beer 3 times yearly. Denies recreational drug use - Has been making healthy dietary choices. Active but not exercise. Reports poor sleep due to bilat hip pain Health maintenance - Last retinal exam was in 04/2024. He gets annual eye exams - Last dental visit was a yea years ago last month; encouraged to schedule an appointment with his dentist for routine dental care - Last tetanus vaccine was in 2019 in [place]; Will review his health record and update as needed - He is up-to-date on the shingles and pneumonia vaccines. Will review his health record and update as needed - Has not been vaccinated for the flu this season; declines vaccination - Last colonoscopy was in [place] 2 years ago: normal. Recommended follow up in 5 years. Will review his record and update as needed Specialists Cardiology at [facility], Nephrology at [facility], Endocrinology, Ophthalmology, Podiatry, and Dermatology at [place] [facility]CLUD[facility] Medical History (Updated 10/23/24 @ 13:35 by Tramaine Calzada CNP) Heart murmur Chronic kidney disease, stage 3 Edema Back disorder Arthritis Diabetes Congestive heart disease High cholesterol High blood pressure Sinusitis Melanoma Hernia Surgical History Hx of biopsy History of ankle surgery H/O vasectomy History of back surgery Hx of appendectomy H/O heart bypass surgery Family History Father High blood pressure Cardiovascular disease Paternal Grandfather Cardiovascular disease Social History Housing: Apartment Patient Tobacco Use Status: Never used Tobacco e-Cigarette/Vaping Use: Never Used service: No Current occupational status: employed 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 1. Little interest or pleasure in doing things: several days 2. Feeling down, depressed, or hopeless: several days 3. Trouble falling or staying asleep, or sleeping too much: more than half the days 4. Feeling tired or having little energy: more than half the days 5. Poor appetite or overeating: not at all 6. Feeling bad about yourself - or that you are a failure or have let yourself or your family down: not at all 7. Trouble concentrating on things, such as reading the newspaper or watching television: several days 8. Moving or speaking so slowly that other people could have noticed. Or the opposite - being so fidgety or restless that you have been moving around a lot more than usual: not at all 9. Thoughts that you would be better off or of hurting yourself in some way: not at all Total score: 7 Depression Screening Interpretation: Positive Depression Screening Done: Yes 29559 - PHQ-9 Billing: Yes Source: Developed by Drs. Francisco J Berkowitz, Jeniffer Chen, Bryan Sofia and colleagues, with an educational dayo from [employer]. Thrive Questionnaire Date Thrive assessed: 10/23/24 I am a: Patient What is your living situation today?: I have a steady place to live Within the past 12 months, did the food you bought not last and you didn't have the money to get more?: Never true Within the past 12 months, did you worry whether your food would run out before you got money to buy more?: Sometimes True Do you have trouble paying for medicines?: No Do you have trouble getting transportation to medical appointments?: No Do you have trouble paying your heating and electricity bill?: No Do you have trouble taking care of your child, family member or friend?: No Do you have trouble with day-to-day activities such as bathing, preparing meals, shopping, managing finances, etc.?: I choose not to answer this question Are you currently unemployed and looking for a job?: No Are you interested in more education?: No Please select the resources that you would like help with: Housing/Retirement Currently or been in a relationship where the following occur: No concerns reported THRIVE Score: 1 AUDIT C Alcohol Use Questionnaire (AUDIT-C) 1. How often do you have a drink containing alcohol?: Never 2. How many drinks containing alcohol do you have on a typical day when you are drinking?: 1 or 2 3. How often do you have six or more drinks on one occasion?: Never Total Score: 0 Score Reviewed/Action Taken: Yes MENDOZA-7 AMB Questionnaire MENDOZA-7 Date MENDOZA - 7 assessed: 10/23/24 Feeling nervous, anxious, or on edge: 0 = Not at all Not being able to stop or control worryin = Not at all Worrying too much about different things: 1 = Several days Trouble relaxin = Not at all Being so restless that it is hard to sit still: 0 = Not at all Becoming easily annoyed or irritable: 0 = Not at all Feeling afraid as if something awful might happen: 0 = Not at all Total MENDOZA-7 score (0-4 normal; 5-9 mild; 10-14 moderate; 15-21 severe): 1 Source: Developed by Drs. Francisco J Berkowitz, Jeniffer Chen, Bryan Sofia and colleagues, with an educational dayo from [employer]. MENDOZA-7 Assessment Billing MENDOZA-7 Assessment Tool: MENDOZA-7 Assessment 71487 Review of Systems Const Details: Denies chills, Denies fatigue, Denies fever(s), Denies headache(s) and Denies weakness HEENT Denies change in vision, Denies dizziness, Denies headache(s), Denies hearing loss, Denies nasal congestion, Denies sinus pain, Denies sinus pressure and Denies sore throat Card Denies chest pain, Denies lightheadedness, Denies dyspnea and Denies other (palpitations) Resp Denies cough, Denies dyspnea and Denies wheezing GI Denies abdominal pain, Denies melena, Denies hematochezia, Denies change in bowel habits, Denies dyspepsia and Denies nausea Denies hematuria and Denies dysuria Musc Reports right and left hip pain, Denies abnormal gait, Denies numbness and Denies tingling Skin/Breast Denies rash, Denies unusual bruising and Denies wounds Neuro Denies abnormal gait, Denies dizziness, Denies headache(s), Denies memory loss, Denies numbness, Denies Sensory deficit (Neuro), Denies tingling and Denies weakness Psych Denies anxiety, Denies depression and Denies memory loss Endo Denies cold intolerance, Denies fatigue, Denies heat intolerance, Denies polydipsia and Denies polyuria Marc/Lymph Denies easy bleeding and Denies easy bruising Aller/Immun Denies wheezing Physical exam (Primary Care) Vital Signs: Last Vital Signs Temp 97.6 F 10/23/24 12:22 Pulse 61 10/23/24 12:22 Resp 16 10/23/24 12:22 BP 128/72 10/23/24 12:22 Pulse Ox 100 10/23/24 12:22 Oxygen Delivery Method Room Air 10/23/24 12:22 BMI result Body Mass Index 33.6 Tobacco/Smoking Status: Tobacco use Status Tobacco use date assessed 10/23/24 10/23/24 12:33 Patient Tobacco Use Status Never used Tobacco 10/23/24 12:33 Tobacco use type 03/27/23 15:41 e-Cigarette/Vaping Use Never Used 10/23/24 12:33 PHQ-9: PHQ-9 Score PHQ-9: Total score 7 10/23/24 12:44 Depression Screening Interpretation: Positive Thrive Assessment: Date of Thrive Assessment Date Thrive assessed 10/23/24 10/23/24 12:33 Currently or been in a relationship where the following occur: No concerns reported Const Other: General: no acute distress, well developed, alert and awake Nutritional Appearance: well nourished Orientation/consciousness: patient oriented x3 HENMT Head: Yes normocephalic and Yes atraumatic Ears: hearing grossly normal bilaterally and TM's normal bilaterally General nose exam: Normal external nose present and Normal nares present Mouth: Normal oral and palatal mucosa present and moist mucous membranes Teeth and gingiva: dentition normal Throat: Yes oropharynx normal Eyes Pupils: Equal, round and reactive pupils present and Pupil accommodation reflex normal EOM: EOMs intact bilaterally Neck Neck: Yes normal visual inspection, Yes no lymphadenopathy and Yes trachea midline Thyroid: Thyroid normal Carotids: no bruits Lymphatic: no lymphadenopathy noted Chest Chest palpation & inspection: normal inspection of the chest Resp Effort & Inspection: normal respiratory effort Auscultation: clear to auscultation bilaterally Cardio Rate: regular rate Rhythm: regular rhythm Heart sounds: S1 normal heart sound present, S2 normal heart sound present, no gallops, +murmurs and no rubs Bruits: no abdominal aortic bruits and no carotid bruits GI Palpation (GI): No Abdominal aortic bruit present, Soft to palpation, nontender, No hepatosplenomegaly present and No Rebound tenderness present Auscultation: normal bowel sounds General: Yes no CVA tenderness Back/Spine/Pelvis Back: no CVA tenderness Cervical Spine: cervical ROM normal and No Cervical spine tenderness Thoracic/Lumbar Spine: thoraco-lumbar ROM normal, No pain with thoraco-lumbar ROM, No thoracic spinal tenderness and No lumbar spinal tenderness Skin General: warm and dry. Normal skin color. Normal skin turgor Lesions: no lesions Rashes: no rashes Trauma: no lacerations or abrasions Wounds: no wounds Nails: normal Neuro General: patient oriented x3, gait normal and CN's II-XI intact bilaterally Cranial nerves: Yes Equal, round and reactive pupils present Cognition (Neuro): normal cognition Gait exam (Neuro): Normal gait present Motor exam (neuro): 5/5 motor strength present throughout Sensory Exam: No Sensory deficit (Neuro) Deep tendon reflexes (DTR's): Right patellar reflex intensity grade: 2+ and Left patellar reflex intensity grade: 2+ Extrem General: Yes normal to inspection, No edema and No calf tenderness Psych Appearance: grossly normal Affect: normal affect Attitude: cooperative Thought process: Normal thought process present Coding Level of Care Code Est Pt Level 4 (35427) Est Pt Prev Care >65y(81455) Diagnoses Normal physical examination, routine Z00.00 Primary hypertension I10 Hypertension type: primary hypertension High cholesterol E78.00 Type 2 diabetes mellitus with diabetic neuropathy E11.40 Stage 3b chronic kidney disease (CKD) N18.32 Chronic left hip pain M25.552; G89.29 Acute right hip pain M25.551 Vitamin D deficiency E55.9 Mild anemia D64.9 Additional Codes MENDOZA-7 Assessment Billing - MENDOZA-7 Assessment Tool: MENDOZA-7 Assessment 63979 ([id number]) PHQ-9 - 76889 - PHQ-9 Billing: Yes ([id number]) Assessment & Plan Assessment & Plan (1) Normal physical examination, routine: Code(s): Z00.00 - Encounter for general adult medical examination without abnormal findings Category: Medical Plan: Normal physical exam with minimal functional limitation due to bilateral hip pain. Continue current treatment regimen. Follow-up with Cardiology, Nephrology, endocrinology, Podiatry, Ophthalmology, and Dermatology as planned. Perform fasting blood work and follow-up in 3 months for hypertension and hyperlipidemia. Return sooner with symptoms or concerns. Verbalized understanding and agreed with treatment plan. (2) High blood pressure: Code(s): I10 - Essential (primary) hypertension Category: Medical Qualifiers: Hypertension type: primary hypertension Qualified Code(s): I10 - Essential (primary) hypertension Plan: Blood pressure is 128/72, within goal of less than 130/80. Continue current treatment regimen. Low-sodium diet encouraged. Follow-up in 3 months. Verbalized understanding and agreed with the plan. (3) High cholesterol: Code(s): E78.00 - Pure hypercholesterolemia, unspecified Category: Medical Plan: His recent triglyceride level is elevated but improved from 284 to 214. He has been taking rosuvastatin and fenofibrate as prescribed which I encouraged. Advised to limit foods high in saturated fat and avoid foods high trans fat. Fast for 10-12 hours, may drink water, and perform lipid panel blood work 2-3 days before next visit. Follow-up in 3 months. Verbalized understanding and agreed with the plan. (4) Type 2 diabetes mellitus with diabetic neuropathy: Code(s): E11.40 - Type 2 diabetes mellitus with diabetic neuropathy, unspecified Category: Medical Plan: Continue current treatment regimen. Followed by endocrinology. (5) Stage 3b chronic kidney disease (CKD): Code(s): N18.32 - Chronic kidney disease, stage 3b Category: Medical Plan: Recent BUN and creatinine are elevated, 40/3.29. Continue current treatment regimen, including peritoneal dialysis. Followed by nephrology. (6) Chronic left hip pain: Code(s): M25.552 - Pain in left hip; G89.29 - Other chronic pain Category: Medical Plan: Chroniic left hip pain and right hip pain which started in mid September. He has had multiple falls in the past year but does not recall striking his hips. He has never had imaging of his right hip and does not recall imaging of his left hip. Normal ROM of the hips. No overt injury or trauma noted. Gait is steady. Cyclobenzaprine and tramadol refilled; advised to take as prescribed. Warm/cool compresses encouraged. X-ray of bilateral hip with pelvis ordered. Will review results and make changes as needed. Follow-up with worsening or new symptoms. Verbalized understanding and agreed with treatment plan. (7) Acute right hip pain: Code(s): M25.551 - Pain in right hip Category: Medical Plan: Plan as above. (8) Vitamin D deficiency: Code(s): E55.9 - Vitamin D deficiency, unspecified Category: Medical Plan: Recent vitamin D level is low, 26.8. Has been taking vitamin D3 50 mcg daily. Will increase vitamin D3 to 75 mcg daily; advised to take as prescribed. Will recheck vitamin-D level in 8 weeks. Follow-up as needed. Verbalized understanding and agreed with the plan. (9) Mild anemia: Code(s): D64.9 - Anemia, unspecified Category: Medical Plan: Recent RBC and H&H levels a slightly low, 4.04 and 12.9/39.8 respectively, MCV slightly elevated 98.5. He receives monthly iron infusion from Nephrology. Continue follow-up with Nephrology as planned. Orders: Orders XR hip RT w PEL1V 10/23/24 M25.551 - Pain in right hip Vitamin D 25-OH Total 8 Weeks E55.9 - Vitamin D deficiency, unspecified XR hip LT w PEL1V 10/23/24 G89.29 - Other chronic pain, M25.552 - Pain in left hip Lipid Panel 3 Months E78.00 - Pure hypercholesterolemia, unspecified Medications: New cholecalciferol (vitamin D3) 75 mcg PO DAILY 90 tabs 1RF 90 days Refilled cyclobenzaprine 10 mg PO BID PRN 30 tabs 0RF muscle spasm tramadol 50 mg PO BEDTIME PRN 30 tabs 0RF pain Discontinued cholecalciferol (vitamin D3) Discontinued Reason: Doctor's Order 50 mcg PO DAILY 90 days 90 tabs 1RF
[2024-10-23 12:22] VITALS: BP 128/72; PULSE 61; RESP 16; TEMP 36.4; O2SAT 100; BMI 33.6
--- OUTSIDE RECORDS SUMMARY | 2024-10-23 13:13 | XMS_ITS | Encounter Summary ---
Author Organization [facility] Address [address] [place] [address] Phone Care Team Providers Care High School Librarian Name Role Phone Tramaine Calzada CNP Primary Care Provider Encounter Details Date Type Department Care Team (Late st Contact Info) Description 05/13/2024 Office Communication [facility] [address] [place] [phone] Mary Valero, MARY [address] [place] [address] Social History Tobacco Use Types Packs/Day Years [...] on filedocumented in this encounter Care Teams High School Librarian Relationship Specialty Start Date End Date Tramaine Calzada CNP [address] [place], [place] [id number] PCP - General 03/02/23 documented as of this encounter
--- OUTSIDE RECORDS SUMMARY | 2024-10-23 13:13 | XMS_ITS | Encounter Summary ---
Author Organization [facility] Address [address] [place] [address] Phone Care Team Providers Care Fish And Wildlife Scientific Aid Name Role Phone Tramaine Calzada CNP Primary Care Provider [phone] Encounter Details Date Type Department Care Team (Late st Contact Info) Description 06/24/2024 Office Communication [facility] [address] [place] [phone] Erin Morley, RN [address] [place] [address] Social History Tobacco Use Types Packs/Day Years [...] on filedocumented in this encounter Care Teams Fish And Wildlife Scientific Aid Relationship Specialty Start Date End Date Tramaine Calzada CNP [address] [place], [place] [id number] PCP - General 03/02/23 documented as of this encounter
--- OUTSIDE RECORDS SUMMARY | 2024-10-23 13:13 | XMS_ITS | Encounter Summary ---
Author Organization [facility] Address [address] [address] Phone Care Team Providers Care Cement Mixer Name Role Phone Tramaine Calzada CNP Primary Care Provider [phone] Encounter Details Date Type Department Care Team (Late st Contact Info) Description 10/15/2024 Treatment [facility]. [address] [phone] Jerman Dong MD [address] [phone] Social History Tobacco Use Types Packs/Day Years [...] care for end stage renal disease. Attending Child Care Director: JERMAN DONG MD Dialysis Location: [facility] Patient is stable. COMMENTS: On PD . HOME MEDICATIONS Medications reviewed. Current [facility] Out[facility] Medications aspirin EC tablet Take 81 mg by mouth 1 (one) time each day Start Date: B Nziytao-I-Olvev Acid (B complex-vitamin C-folic acid) 1 MG [...] evening. Take with meals. Start Date: cloNIDine (Durejfkl-XQQ-9) 0.2 MG/24HR patch weekly Place 1 patch [...] on filedocumented in this encounter Care Teams Cement Mixer Relationship Specialty Start Date End Date Tramaine Calzada CNP [address] [place] [address] PCP - General 03/02/23 documented as of this encounter
--- OUTSIDE RECORDS SUMMARY | 2024-10-23 13:13 | XMS_ITS | Clinical Summary ---
Author Organization [facility] Address [address] [facility] [address] [place] [address] Phone Care Team Providers Care Verifier Name Role Phone Tramaine Calzada CNP Primary Care Provider [phone] Allergies Active Allergy Reactions Criticality Noted Date [...] capsule 3 4 02/14/20 25 Active cloNIDine (Volxqquh-ZRW-5 ) 0.2 MG/24HR patch weekly Place 1 [...] tablet 3 4 07/23/20 25 Active B Yswiqof-E-Gkien Acid (B complex-vitamin C-folic acid) 1 MG [...] 10/15/2024 Treatment [facility] [address] [address] Jerman Keene MD 09/17/2024 Treatment [facility] [address] [address] Jerman Keene MD 07/23/2024 Treatment [facility] [address] [address] Jerman Keene MD from Last [...] Final Resu lt [facility] [address] [place] [address] * LIH (10/06/2024 3:00 AM EST) Only the most recent of4 resultswithin the time period is included. Lipemia Normal Normal [facility] Icterus Normal Normal [facility] Hemolysis Normal Normal [facility] 10/06/2024 3:00 AM EST 10/07/2024 2:05 PM EST us Jerman Keene MD LAB [id number] LICITED RESULTS Final Result Performing Organization Address [facility] de Phone Number [facility] [address] [place] [address] * (ABNORMAL) Calcium Phosphorus Product, Adjusted (10/06/2024 [...] PM EST us Jerman Keene MD LAB [id number] LICITED RESULTS Final Result Performing Organization Address City/[facility]/ZIP Co de Phone Number [facility] [address] [place] [address] * Hepatitis B Surface Ag w/Reflex Confirmation (10/06/2024 3:00 AM EST) Only the most recent of3 resultswithin the time period is included. Hep B Surface Antigen Negative Negative [facility] 10/06/2024 3:00 AM EST 10/07/2024 2:05 PM EST us Jerman Keene MD LAB BLOOD ORDERABLES Final Resu lt Performing Organization Address [facility] Co de Phone Number [facility] [address] [place] [address] * (ABNORMAL) TSAT (10/06/2024 3:00 AM EST) [...] ORDERABLES Final Resu lt Performing Organization Address [facility] Co de Phone Number [facility] [address] [place] [address] * Glucose, urine, 24 hour (10/06/2024 3:00 AM EST) Only the most recent of2 resultswithin the time period is included. Glucose 24 HR Dial 1,080 mg/dL [facility] 10/06/2024 3:00 AM EST 10/08/2024 2:35 PM EST us Jerman Keene MD LAB URINE ORDERABLES Final Resu lt [facility] [address] [place] [address] * (ABNORMAL) CBC and Differential (10/06/2024 3:00 [...] ORDERABLES Final Resu lt Performing Organization Address City/[facility]/ZIP Co de Phone Number [facility] [address] [place] [address] * ALT (10/06/2024 3:00 AM EST) Only the most recent of3 resultswithin the time period is included. Pathologist [facility] ALT (SGPT) 16 10 - 49 U/L [facility] 10/06/2024 3:00 AM EST 10/07/2024 2:05 PM EST us Jerman Keene MD LAB BLOOD ORDERABLES Final Resu lt Performing Organization Address [facility] Co de Phone Number [facility] [address] [place] [address] * AST (10/06/2024 3:00 AM EST) Only the most recent of3 resultswithin the time period is included. AST (SGOT) 25 <34 U/L [facility] 10/06/2024 3:00 AM EST 10/07/2024 2:05 PM EST us Jerman Keene MD LAB BLOOD ORDERABLES Final Resu lt Performing Organization Address [facility] de Phone Number [facility] [address] [place] [address] * Protein, total (10/06/2024 3:00 AM EST) Only the most recent of3 resultswithin the time period is included. Total Protein 6.8 6.4 - 8.9 g/dL [facility] 10/06/2024 3:00 AM EST 10/07/2024 2:05 PM EST us Jerman Keene MD LAB BLOOD ORDERABLES Final Resu lt Performing Organization Address [facility] de Phone Number [facility] [address] [place] [address] * Alkaline phosphatase (10/06/2024 3:00 AM EST) Only the most recent of3 resultswithin the time period is included. Alkaline Phosphatase 55 46 - 116 U/L [facility] 10/06/2024 3:00 AM EST 10/07/2024 2:05 PM EST us Jerman Keene MD LAB BLOOD ORDERABLES Final Resu lt Performing Organization Address [facility] de Phone Number [facility] [address] [place] [address] * (ABNORMAL) PTH, Intact (10/06/2024 3:00 AM [...] ORDERABLES Final Resu lt Performing Organization Address [facility] Phone Number [facility] [address] [place] [address] * Magnesium (10/06/2024 3:00 AM EST) Only the most recent of3 resultswithin the time period is included. Magnesium 1.9 1.9 - 2.7 mg/dL [facility] 10/06/2024 3:00 AM EST 10/07/2024 2:05 PM EST us Jerman Keene MD LAB BLOOD ORDERABLES Final Resu lt Performing Organization Address [facility] de Phone Number [facility] [address] [place] [address] * (ABNORMAL) Lactate dehydrogenase (10/06/2024 3:00 AM EST) Only the most recent of3 resultswithin the time period is included. LDH 260(H) 120 - 246 U/L [facility] 10/06/2024 3:00 AM EST 10/07/2024 2:05 PM EST us Jerman Keene MD LAB BLOOD ORDERABLES Final Resu lt Performing Organization Address [facility]/ZIP Co de Phone Number [facility] [address] [place] [address] * Glucose, random (10/06/2024 3:00 AM EST) Only the most recent of3 resultswithin the time period is included. Glucose 90 74 - 109 mg/dL [facility] 10/06/2024 3:00 AM EST 10/07/2024 2:05 PM EST us Jerman Keene MD LAB BLOOD ORDERABLES Final Resu lt Performing Organization Address [facility] Co de Phone Number [facility] [address] [place] [address] * Ferritin (10/06/2024 3:00 AM EST) Only the most recent of3 resultswithin the time period is included. Ferritin 204 22 - 322 ng/mL [facility] 10/06/2024 3:00 AM EST 10/07/2024 2:05 PM EST us Jerman Keene MD LAB BLOOD ORDERABLES Final Resu lt Performing Organization Address [facility] de Phone Number [facility] [address] [place] [address] * Bilirubin, total (10/06/2024 3:00 AM EST) Only the most recent of3 resultswithin the time period is included. Total Bilirubin 0.3 0.3 - 1.2 mg/dL [facility] 10/06/2024 3:00 AM EST 10/07/2024 2:05 PM EST us Jerman Keene MD LAB BLOOD ORDERABLES Final Resu lt Performing Organization Address [facility] Co de Phone Number [facility] [address] [place] [address] * Electrolyte panel (10/06/2024 3:00 AM EST) [...] ORDERABLES Final Resu lt Performing Organization Address [facility] de Phone Number [facility] [address] [place] [address] * Confirmation Test HCV (09/11/2024 3:00 AM EST) Pathologist [facility] Hep C Ab Confirmation Not needed [facility] 09/11/2024 3:00 AM EST 09/15/2024 2:01 PM EST us Jerman Keene MD LAB BLOOD ORDERABLES Final Resu lt Performing Organization Address [facility] de Phone Number [facility] [address] [place] [address] * Collection Date (09/11/2024 3:00 AM EST) [facility] Collection Date See Comment [facility] Comment: Patient sample received may exceed specimen stability, based on the collection date electronically provided. ??When reviewing patient results, verify collection information and consider specimen stability before acting on any critical or panic results. 09/11/2024 3:00 AM EST us Jerman Keene MD LAB [id number] LICITED RESULTS Final Result Performing Organization Address [facility] de Phone Number [facility] [address] [place] [address] * HEPATITIS C ABS W/REFLEX RNA DETECTR (09/11/2024 3:00 AM EST) Pathologist [facility] Hep C Virus Ab Non-Reacti ve Non-Reacti ve [facility] 09/11/2024 3:00 AM EST 09/15/2024 1:11 PM EST us Jerman Keene MD LAB [id number] LICITED RESULTS Final Result Performing Organization Address [facility] de Phone Number [facility] [address] [place] [address] * Aluminum level (09/11/2024 3:00 AM EST) Aluminum 2 1 - 20 ug/L [facility] 09/11/2024 3:00 AM EST 09/15/2024 1:34 PM EST us Jerman Keene MD LAB BLOOD ORDERABLES Final Resu lt Performing Organization Address [facility] de Phone Number [facility] [address] [place] [address] * (ABNORMAL) Hepatitis B Surface Antibody (09/11/2024 3:00 AM EST) Hep B Surface Antibody <4(A) mIU/mL [facility] Comment: Interpretation: <10: No Immunity >=10: Probable Immunity 09/11/2024 3:00 AM EST 09/15/2024 1:11 PM EST us Jerman Keene MD LAB BLOOD ORDERABLES Final Resu lt Performing Organization Address [facility] de Phone Number [facility] [address] [place] [address] * (ABNORMAL) Hemoglobin (09/11/2024 3:00 AM EST) Hgb 11.9(L) 13.7 - 17.5 g/dL [facility] Hemoglobin x 3 35.7(L) 41.1 - 52.5 g/dL [facility] 09/11/2024 3:00 AM EST 09/15/2024 2:01 PM EST us Jerman Keene MD LAB BLOOD ORDERABLES Final Resu lt Performing Organization Address [facility] de Phone Number [facility] [address] [place] [address] * Uric Acid (09/11/2024 3:00 AM EST) Uric Acid 5.2 4.4 - 7.6 mg/dL [facility] 09/11/2024 3:00 AM EST 09/15/2024 1:11 PM EST us Jerman Keene MD LAB BLOOD ORDERABLES Final Resu lt Performing Organization Address [facility] de Phone Number [facility] [address] [place] [address] * (ABNORMAL) BUN (09/11/2024 3:00 AM EST) Only the most recent of2 resultswithin the time period is included. BUN 55(H) 7 - 25 mg/dL [facility] 09/11/2024 3:00 AM EST 09/15/2024 1:11 PM EST us Jerman Keene MD LAB BLOOD ORDERABLES Final Resu lt Performing Organization Address [facility] de Phone Number [address] [address] * (ABNORMAL) Hemoglobin A1c (09/11/2024 3:00 AM [...] ORDERABLES Final Resu lt Performing Organization Address [facility] de Phone Number [facility] [address] [place] [address] * (ABNORMAL) Creatinine, serum (09/11/2024 3:00 AM EST) Only the most recent of2 resultswithin the time period is included. Creatinine 4.51(H) 0.70 - 1.30 mg/dL [facility] 09/11/2024 3:00 AM EST 09/15/2024 1:11 PM EST Jerman Keene MD LAB BLOOD ORDERABLES Final Resu lt Performing Organization Address [facility] de Phone Number [facility] [address] [place] [address] * (ABNORMAL) Lipid panel (09/11/2024 3:00 AM [...] Final Resu lt [facility] [address] [place] [address] from Last 3 Months Insurance , [address] [address] [facility] MEDICARE , [address] [address] [facility] MEDICARE Care Teams Verifier Relationship Specialty Start Date End Date Tramaine Calzada CNP [address] [place] [address] PCP - General 03/02/23
--- OUTSIDE RECORDS SUMMARY | 2024-10-23 13:13 | XMS_ITS | Encounter Summary ---
Author Organization [facility] Address [address] [address] Phone Care Team Providers Care Distance Learning Technician Name Role Phone Tramaine Calzada CNP Primary Care Provider [phone] Reason for Visit * Reason Onset Date Comments Med Refill 05/20/2024 Encounter Details Date Type Department Care Team (Late st Contact Info) Description 05/20/2024 Refill [facility] [address] [place] [id number] Jerman Keene MD [address] [address] Social History Tobacco Use Types [...] on filedocumented in this encounter Care Teams Distance Learning Technician Relationship Specialty Start Date End Date Tramaine Calzada CNP [address] [place] [address] [phone] PCP - General 03/02/23 documented as of this encounter
--- OUTSIDE RECORDS SUMMARY | 2024-10-23 13:13 | XMS_ITS ---
Continuity of Care Document (CCD) Created on: October 23, 2024 Nikita Forte External Reference #: [id number] : [id number] Sex: Male Author Organization [facility] [address] [facility] [address] [place] [address] Phone [phone] Care Team Providers Care Day Care Aide Name Role Phone Elsi Redd CNP Care Team Information Receive r [phone] Problems Active Problems Provider Date Chronic kidney [...] Qnty Indications Order ing Provider Date Rosuvastatin Difdoyj72dh Tablets Take 1 Tablet By Mouth Daily Elsi Redd CNP Ihlfdkvib06pd Tablets Take 1 Tablet By Mouth Daily Elsi Redd CNP Imkagykujs24fl Tablets Take 1 Tablet By Mouth Twice Daily - Must Take With Meal / Food Elsi Redd CNP Isosorbide Mononitrate ER30mg Tablets ER 24HR Take 1 Tablet By Mouth Twice A Day Unknown Lantus Hwphjuud892Chko/ML Solution Pen-Inject Inject 80 Units Subcutaneously Twice Daily 45ml Evan Lopez M.D. Wgubucstsxh113ti Tablets Take 1 Tablet By Mouth Daily Elsi Redd CNP Insulin Lispro (1 Unit Dial)100Unit/ML Solution Pen-Inject inject up to 25 units four times daily 45ml Evan Lopez M.D. Olsrxuvcslt175wi Tablets 1 by mouth every day 90tabs Unknown 000 Ranolazine BK113cy Tablets ER 12HR Take 1 Tablet By Mouth Twice Daily Elsi Redd CNP Thhxzmwwgt553xw Capsules Unknown Losartan Potassium/Hydrochlo zfpwnrqepe832-44ly Tablets Take 1 Tablet By Mouth Every [...] 104 Procedures Date Code Description Status 05/07/2024 70387 Glucose Monitoring Interpeta tion And Report Completed [...]
== END 2024-10-23 13:21 | disposition home or self-care (01) ==
PROVIDERS: PCP Nurse Practitioner Family; Visit Provider Nurse Practitioner Family
DX: Z00.00 Encounter for general adult medical examination without abnormal findings (principal); I12.9 Hypertensive chronic kidney disease with stage 1 through stage 4 chronic kidney disease, or unspecified chronic kidney disease; E11.40 Type 2 diabetes mellitus with diabetic neuropathy, unspecified; N18.32 Chronic kidney disease, stage 3b; E78.00 Pure hypercholesterolemia, unspecified; M25.552 Pain in left hip; G89.29 Other chronic pain; M25.551 Pain in right hip; E55.9 Vitamin D deficiency, unspecified; D64.9 Anemia, unspecified

== ENCOUNTER → 2024-10-23 12:11 | Outpatient (BNVA) | payer MEDICARE, SELFPAY | PROVIDERS: PCP Nurse Practitioner Family; Visit Provider Nurse Practitioner Family | DX: Z00.01 Encounter for general adult medical examination with abnormal findings (principal); I10 Essential (primary) hypertension; E78.00 Pure hypercholesterolemia, unspecified; E11.40 Type 2 diabetes mellitus with diabetic neuropathy, unspecified; E55.9 Vitamin D deficiency, unspecified; D64.9 Anemia, unspecified; M25.551 Pain in right hip; M25.552 Pain in left hip; G89.29 Other chronic pain | CPT/HCPCS: 96127; 99212; 99397 ==

== ENCOUNTER 2025-01-23 09:56 | Outpatient (AMB) | payer OTHER, SELFPAY ==
--- OUTSIDE RECORDS SUMMARY | 2025-01-23 10:12 | XMS_ITS | Encounter Summary ---
Author Organization [facility] Address [address] [place] [address] Phone Care Team Providers Care Dialysis Technician Name Role Phone Tramaine Calzada CNP Primary Care Provider [phone] Encounter Details Date Type Department Care Team (Late st Contact Info) Description 06/24/2024 Office Communication [facility] [address] [place] [address] Erin Morley, RN [address] [place] [address] Social History Tobacco Use Types Packs/Day Years [...] on filedocumented in this encounter Care Teams Dialysis Technician Relationship Specialty Start Date End Date Tramaine Calzada CNP [address] [place], [place] [phone] PCP - General 03/02/23 documented as of this encounter
--- NOTE | 2025-01-23 10:27 | MHC.PC.OV ---
Vital Signs 01/23/25 10:30 01/23/25 11:07 Height 6 ft 2 in Weight 273 lb 6 oz BMI 35.1 BP 129/58 L 116/58 L Blood Pressure Location Lt brachial Rt brachial Position Sitting Sitting Respiration 16 Pulse 72 Pulse Source Pulse Oximeter Temp 98.3 F Temp Source Oral Pulse Oximetry (%) 97 Oxygen Delivery Method Room Air Intake Visit Reasons: HTN, HLD Intake Note: patient here for follow up on HTN and HLD Tourist Information Assistant Required: No Allergies Sulfa (Sulfonamide Antibiotics) Allergy (Intermediate, Verified 01/23/25 11:02) Swelling Latex, Natural Rubber Allergy (Mild, Verified 01/23/25 11:02) Redness of Skin grapefruit Adverse Reaction (Unknown, Uncoded 01/23/25 11:02) Unknown Medication List - Last Reconciled 01/23/25 by Tramaine Calzada CNP allopurinol 300 mg PO DAILY 90 days aspirin (Adult Low Dose Aspirin) 81 mg PO DAILY azithromycin (Zithromax Z-Sunny) For 250 mg dose pack: take 500 mg today (day 1), then 250 mg for 4 days (days 2-5) PO carvedilol 25 mg PO BID 30 days cholecalciferol (vitamin D3) 75 mcg PO DAILY 90 days clonidine patches transdermal cyclobenzaprine 10 mg PO BID PRN fenofibrate 160 mg PO DAILY 30 days gabapentin 300 mg PO TID PRN insulin glargine (Lantus Solostar U-100 Insulin) 50 units (0.5 mL) subcut BID 30 days insulin lispro 1 sliding scale dose subcut USEASDIRECTD losartan 50 mg PO DAILY ranolazine ER 500 mg PO BID 30 days rosuvastatin (Crestor) 40 mg PO DAILY 30 days torsemide 20 mg PO DAILY 30 days tramadol 50 mg PO BEDTIME PRN Tobacco use date assessed: 01/23/25 Fall risk assessment: 2 + Falls in past year Last assessed Fall Risk: 01/23/25 Dental Screening Dental Screen Date: 01/23/25 Did you have a dental visit in the last 12 months?: No Did you have a dental problem in the last 6 months where you did not have access to dental care?: No Was dental information given to patient?: Patient has dentist HPI HPI Comments History of Present Illness Details 69-year-old male presents for hypertension and hyperlipidemia follow-up. He admits to taking his medications as prescribed without adverse reactions. He was prescribed vitamin-D3 75 mcg, however, his health plan stopped coverage; he has been taking OTC vitamin D3 25 mcg daily. He reports nasal congestion and greenish yellow discharge; his symptoms started 3 weeks after his last visit; was treated for sinusitis at the time. He reports recurrent sinus issues for several years. He has been using saline spray and taking NyQuil, DayQuil, and cetirizine daily. He was followed by ENT. [facility] Medical History (Updated 10/23/24 @ 13:35 by Tramaine Calzada CNP) Heart murmur Chronic kidney disease, stage 3 Edema Back disorder Arthritis Diabetes Congestive heart disease High cholesterol High blood pressure Sinusitis Melanoma Hernia Surgical History Hx of biopsy History of ankle surgery H/O vasectomy History of back surgery Hx of appendectomy H/O heart bypass surgery Family History Father High blood pressure Cardiovascular disease Paternal Grandfather Cardiovascular disease Social History Housing: Apartment Patient Tobacco Use Status: Never used Tobacco e-Cigarette/Vaping Use: Never Used service: No Current occupational status: employed 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 [employer] Current occupational exposures/hazards: No Cognitive needs: No Hearing needs: Yes Vision needs: Yes Questionnaire Thrive Questionnaire Date Thrive assessed: 10/03/24 I am a: Patient What is your living situation today?: I have a steady place to live Within the past 12 months, did the food you bought not last and you didn't have the money to get more?: Never true Within the past 12 months, did you worry whether your food would run out before you got money to buy more?: Sometimes True Do you have trouble paying for medicines?: No Do you have trouble getting transportation to medical appointments?: No Do you have trouble paying your heating and electricity bill?: No Do you have trouble taking care of your child, family member or friend?: No Do you have trouble with day-to-day activities such as bathing, preparing meals, shopping, managing finances, etc.?: I choose not to answer this question Are you currently unemployed and looking for a job?: No Are you interested in more education?: No Please select the resources that you would like help with: Housing/Fdc Currently or been in a relationship where the following occur: No concerns reported THRIVE Score: 1 MENDOZA-7 AMB Questionnaire MENDOZA-7 Date MENDOZA - 7 assessed: 10/23/24 Source: Developed by Drs. Francisco J Berkowitz, Jeniffer Chen, Bryan Sofia and colleagues, with an educational dayo from [employer]. Review of Systems Const Details: Const Denies chills, Denies fatigue, Denies fever(s), Denies headache(s) and Denies weakness ENT Reports as per HPI Card Denies chest pain, Denies lightheadedness, Denies dyspnea and Denies other (Palpitations) Resp Denies cough, Denies dyspnea, Denies wheezing and Denies other ( shortness of breath) GI Denies abdominal pain, Denies melena, Denies hematochezia, Denies change in bowel habits, Denies dyspepsia and Denies nausea Denies hematuria and Denies dysuria Musc Denies abnormal gait, Denies myalgias, Denies arthralgias, Denies numbness and Denies tingling Skin/Breast Denies rash, Denies unusual bruising and Denies wounds Neuro Denies abnormal gait, Denies dizziness, Denies headache(s), Denies memory loss, Denies numbness, Denies Sensory deficit (Neuro), Denies tingling and Denies weakness Psych Denies anxiety, Denies depression, Denies memory loss Endo Denies cold intolerance, Denies fatigue, Denies heat intolerance, Denies polydipsia and Denies polyuria Aller/Immun Denies wheezing Physical exam (Primary Care) Vital Signs: Last Vital Signs Temp 98.3 F 01/23/25 10:30 Pulse 72 01/23/25 10:30 Resp 16 01/23/25 10:30 BP 116/58 L 01/23/25 11:07 Pulse Ox 97 01/23/25 10:30 Oxygen Delivery Method Room Air 01/23/25 10:30 BMI result Body Mass Index 35.1 Tobacco/Smoking Status: Tobacco use Status Tobacco use date assessed 01/23/25 01/23/25 10:33 Patient Tobacco Use Status Never used Tobacco 01/23/25 10:33 Tobacco use type 03/27/23 15:41 e-Cigarette/Vaping Use Never Used 01/23/25 10:33 Thrive Assessment: Date of Thrive Assessment Date Thrive assessed 10/03/24 01/23/25 10:33 Currently or been in a relationship where the following occur: No concerns reported Const Other: General: no acute distress and well developed Nutritional Appearance: well nourished Orientation/consciousness: patient oriented x3 HENMT Head is normocephalic Bilateral ear canal and TM are normal Nasal turbinates with mild erythema and edema Oropharynx are pink and moist Sinuses are nontender with palpation No auricular or cervical lymphadenopathy Eyes General: appearance normal, both eyes and all related structures Pupils: Equal, round and reactive pupils present EOM: EOMs intact bilaterally Resp Effort & Inspection: normal respiratory effort Auscultation: clear to auscultation bilaterally Cardio Rate: regular rate Rhythm: regular rhythm Heart sounds: S1 normal heart sound present, S2 normal heart sound present, no gallops, + murmurs and no rubs GI Palpation (GI): No Abdominal aortic bruit present, Soft to palpation, nontender, No hepatosplenomegaly present and No Rebound tenderness present Auscultation: normal bowel sounds General: Yes no CVA tenderness Back/Spine/Pelvis Back: no CVA tenderness Cervical Spine: cervical ROM normal and No Cervical spine tenderness Thoracic/Lumbar Spine: thoraco-lumbar ROM normal, No pain with thoraco-lumbar ROM, No thoracic spinal tenderness and No lumbar spinal tenderness Extrem General: Yes normal to inspection, No edema and No calf tenderness Skin General: warm and dry. Normal skin color. Normal skin turgor Neuro General: patient oriented x3, gait normal and no focal neuro deficit Cranial nerves: Yes Equal, round and reactive pupils present Cognition (Neuro): normal cognition Gait exam (Neuro): Normal gait present Sensory Exam: No Sensory deficit (Neuro) Psych Appearance: grossly normal Affect: normal affect Attitude: cooperative Thought process: Normal thought process present Coding Level of Care Code Est Pt Level 4 (64075) Complex EM visit Add On G2211 Diagnoses Primary hypertension I10 Hypertension type: primary hypertension High cholesterol E78.00 Vitamin D deficiency E55.9 Sinusitis J32.9 Assessment & Plan Assessment & Plan (1) High blood pressure: Code(s): I10 - Essential (primary) hypertension Category: Medical Qualifiers: Hypertension type: primary hypertension Qualified Code(s): I10 - Essential (primary) hypertension Plan: Resting blood pressure is 116/58, within goal of less than 130/80. Continue current treatment regimen. Low-sodium diet encouraged. Follow-up in 3 months or sooner with symptoms or concerns. Verbalized understanding and agreed with the plan. (2) High cholesterol: Code(s): E78.00 - Pure hypercholesterolemia, unspecified Category: Medical Plan: Recent triglyceride level is elevated, 214 from 284, HDL is low, 26, total cholesterol and LDL levels are normal; LDL within goal of less than 70. Continue current treatment regimen. Advised to limit foods high in saturated fat and avoid foods high in trans fat. Routine exercise encouraged. Advised to perform fasting lipid panel blood work 2-3 days before next visit. Verbalized understanding and agreed with the plan. (3) Vitamin D deficiency: Code(s): E55.9 - Vitamin D deficiency, unspecified Category: Medical Plan: Recent vitamin D level is slightly low, 26.8. He has been taking OTC vitamin D3 25 mcg daily, instead of prescribed 75 mcg daily which was denied by his health plan. Advised to take vitamin D3 50 mcg daily. Informed that the sun is a good source of vitamin D. Will recheck vitamin-D level in 3 months. Verbalized understanding and agreed with the plan. (4) Sinusitis: Code(s): J32.9 - Chronic sinusitis, unspecified Category: Medical Plan: Nasal turbinates with mild erythema and edema. Amoxicillin 500 mg twice daily ordered; advised to take as prescribed. Continue treatment with saline spray and Zyrtec. Referred to ENT. Follow-up with worsening or new symptoms. Verbalized understanding and agreed with treatment plan. Orders: Orders Lipid Panel 3 Months E78.00 - Pure hypercholesterolemia, unspecified Vitamin D 25-OH Total 3 Months E55.9 - Vitamin D deficiency, unspecified Referrals Ear/Nose/Throat Referral J32.9 - Chronic sinusitis, unspecified Medications: New amoxicillin 500 mg PO Q12H 7 days 14 tabs 0RF
[2025-01-23 10:30] VITALS: BP 129/58; PULSE 72; RESP 16; TEMP 36.8; O2SAT 97; BMI 35.1
[2025-01-23 11:07] VITALS: BP 116/58
== END 2025-01-23 11:15 | disposition home or self-care (01) ==
LOC: HO.HMCFM 09:57
PROVIDERS: PCP Nurse Practitioner Family; Visit Provider Nurse Practitioner Family
DX: I10 Essential (primary) hypertension (principal); E78.00 Pure hypercholesterolemia, unspecified; E55.9 Vitamin D deficiency, unspecified; J32.9 Chronic sinusitis, unspecified

== ENCOUNTER → 2025-01-23 09:56 | Outpatient (BNVA) | payer OTHER, SELFPAY | PROVIDERS: PCP Nurse Practitioner Family; Visit Provider Nurse Practitioner Family | DX: Z13.89 Encounter for screening for other disorder (principal) ==

== ENCOUNTER 2025-04-24 08:55 | Outpatient (REF) | payer OTHER, SELFPAY ==
--- OUTSIDE RECORDS SUMMARY | 2025-04-24 09:06 | XMS_ITS | Encounter Summary ---
Author Organization [facility] Address [address] [place] [address] Phone Care Team Providers Care Area Secretary Name Role Phone Tramaine Calzada CNP Primary Care Provider [phone] Encounter Details Date Type Department Care Team (Late st Contact Info) Description 06/24/2024 Office Communication [facility] [address] [place] [id number] Erin Morley, RN [address] [place] [address] Social History Tobacco Use Types Packs/Day Years [...] on filedocumented in this encounter Care Teams Area Secretary Relationship Specialty Start Date End Date Tramaine Calzada CNP [address] [facility] [place] [id number] PCP - General 03/02/23 documented as of this encounter
--- OUTSIDE RECORDS SUMMARY | 2025-04-24 09:06 | XMS_ITS | Continuity of Care Document ---
Author Organization [facility] [address] [place] [address] Phone [phone] Care Team Providers Care Structural Metal Fabricator Apprentice Name Role Phone Elsi Redd CNP Care Team Information Receive r [phone] Problems Active Problems Provider Date Chronic kidney [...] Social History Type Date Description Comments Sex Male Sex Unknown Tobacco Use Start: Unknown Never Smoked Cigarettes ETOH Use Rarely consumes alcohol Allergies and adverse reactions Active Allergies Criticality Reaction Severity Comments Date Sulfamethoxazole Unable to assess criticality 01/30/2024 Medications Active Medications SIG Qnty Indications Order ing Provider Date Humalog [id number]/ML Solution Pen-Inject inject 60 units per day 45ml Evan Lopez M.D. 12/24/2024 Rosuvastatin Dtcyetm07ne Tablets Take 1 Tablet By Mouth Daily Elsi Redd CNP [id number] Tablets Take 1 Tablet By Mouth Daily Elsi Redd CNP Bkcnkfylbq26ou Tablets Take 1 Tablet By Mouth Twice Daily - Must Take With Meal / Food Elsi Redd CNP Lantus Yahqvfdq497Obfy/ML Solution Pen-Inject Inject 75 Units Subcutaneously Twice Daily 45ml Evan Lopez M.D. Cvcjdwhgacz782oz Tablets Take 1 Tablet By Mouth Daily Elsi Redd CNP Insulin Lispro (1 Unit Dial)100Unit/ML Solution Pen-Inject inject up to 25 units four times daily 45ml Evan Lopez M.D. Dikorncezpp147rz Tablets 1 by mouth every day 90tabs Unknown 000 Ranolazine TH071ub Tablets ER 12HR Take 1 Tablet By Mouth Twice Daily Elsi Redd CNP [id number] Capsules Unknown Vital Signs Date Vital Result Comment 12/24/2024 1:37pm BP Systolic 130 mmHg BP Diastolic 86 mmHg Heart Rate 72 /min Height 73 inches 6'1 Weight 272.00 lb per pt BMI (Body Mass Index) 35.9 kg/m2 Results Test Acquired Date Facility Test Result H/L Range N ote Glucose Fingerstick 12/24/2024 Inhouse Glucose Fingerstick 92 Glucose Fingerstick 08/13/2024 Inhouse Glucose Fingerstick 67 Hemoglobin A1c 08/13/2024 Inhouse Hemoglobin A1c 6.2% Glucose Fingerstick 05/07/2024 Inhouse Glucose Fingerstick 104 Procedures Date Code Description Status 05/07/2024 39872 Glucose Monitoring Interpeta tion And Report Completed Medical Devices Description No Information Available Encounters Type Date Location Provider Dx Diagnosis Office Visit 12/24/2024 1:30p Main Office Evan Lopez M.D. E11.8 Type 2 diabetes mellitus with unspecified complications Z99.2 Dependence on renal dialysis Assessments Date Code Description Provider 12/24/2024 E11.8 Type 2 diabetes mellitus with unspecified complications Evan Lopez M.D. 12/24/2024 Z99.2 Dependence on renal dialysis Evan Lopez M.D. Plan of Treatment Future Appointment(s):* 05/06/2025 11:15 am - Evan Lopez M.D. at Main Office 08/13/2024 - Evan Lopez M.D.* E11.8 Type 2 diabetes mellitus with unspecified complications * N18.6 End stage renal disease * Z99.2 Dependence on renal dialysis Functional Status Description No Information Available Mental Status Description No Information Available Referrals Description No Information Available
[2025-04-24 11:12] LABS: Appearance Urine Clear; Glucose Urine UA Negative (Negative); PH 6.0 (5.0-9.0); Specific Gravity - Urine 1.010 (1.005-1.025); UMIC TRIGGER UACC YES
[2025-04-24 11:48] LABS: Cholesterol 126 mg/dL (<200); HDL Cholesterol 23 mg/dL (>40); Triglycerides 264 mg/dL (<150)
== END 2025-04-24 08:56 | disposition home or self-care (01) ==
LOC: HO.WFDLDS 08:55
PROVIDERS: Visit Provider Nurse Practitioner Family
DX: E78.00 Pure hypercholesterolemia, unspecified (principal); E55.9 Vitamin D deficiency, unspecified
CPT/HCPCS: 36415; 80061; 81001; 82306

== ENCOUNTER 2025-05-26 11:18 | Outpatient (AMB) | payer OTHER, SELFPAY ==
--- NOTE | 2025-05-26 11:22 | A.OFFPC_ITS ---
Vital Signs 05/26/25 11:31 05/26/25 12:14 Height 6 ft 2 in Weight 278 lb BMI 35.7 BP 157/65 H 120/60 Blood Pressure Location Rt brachial Lt femoral Position Sitting Sitting Respiration 16 Pulse 66 Pulse Source Pulse Oximeter Temp 98.0 F Temp Source Oral Pulse Oximetry (%) 97 Oxygen Delivery Method Room Air Intake Visit Reasons: 3 mos HTN, DM, vit d def, resched Intake Note: patient here for 3 months follow up on HTN, DM and vit D def Automatic Spinning Lathe Operator Required: No Allergies Sulfa (Sulfonamide Antibiotics) Allergy (Intermediate, Verified 05/26/25 12:09) Swelling Latex, Natural Rubber Allergy (Mild, Verified 05/26/25 12:09) Redness of Skin grapefruit Adverse Reaction (Unknown, Uncoded 05/26/25 12:09) Unknown Medication List - Last Reconciled 05/26/25 by Tramaine Calzada CNP allopurinol 300 mg PO DAILY 90 days amoxicillin 500 mg PO Q12H 7 days aspirin (Adult Low Dose Aspirin) 81 mg PO DAILY B complex-vitamin C-folic acid 0.8 mg (Nephro Vitamins) 1 tab PO DAILY carvedilol 25 mg PO BID 30 days cholecalciferol (vitamin D3) 25 mcg PO DAILY 90 days clonidine patches transdermal clopidogrel 75 mg PO DAILY gabapentin 300 mg PO TID PRN 90 days insulin glargine (Lantus Solostar U-100 Insulin) 60 units subcut BID insulin lispro 1 sliding scale dose subcut USEASDIRECTD losartan 50 mg PO DAILY ranolazine ER 500 mg PO BID 30 days rosuvastatin (Crestor) 40 mg PO DAILY 30 days torsemide 20 mg PO DAILY 30 days tramadol 50 mg PO BID PRN Tobacco use date assessed: 05/26/25 Fall risk assessment: 2 + Falls in past year Last assessed Fall Risk: 05/26/25 Dental Screening Dental Screen Date: 05/26/25 Did you have a dental visit in the last 12 months?: No Did you have a dental problem in the last 6 months where you did not have access to dental care?: No Was dental information given to patient?: Patient has dentist HPI HPI Comments History of Present Illness Details 70-year-old male presents for hypertensi on, diabetes, and vitamin-D deficiency follow-up. He admits to taking his medications as prescribed without adverse reactions. He notes that he has been making healthy lifestyle changes. No acute symptoms at this time. He is followed by Dr. Keene, [facility] nephrology. A message was forwarded from his business development recruiter to his PCP on 04/15/2025 regarding his history of falls. Per Nephrology, patient is dizzy and unsteady when he closes his eyes and Likely posterior column lesion (not cerebellar). Nephrology requested a referral to Neurology for an evaluation. He notes that the last time he fell was a month ago while in his room trying to take off his clothes. He braced the fall with this right hand and has been e xperiencing right shoulder pain. He denied hitting his head, neck, or back. He notes that he has been experiencing chronic mild pain to both shoulders, Tylenol is not effective. He uses a cane and walker for ambulation. [facility] Medical History (Updated 05/26/25 @ 11:48 by Tramaine Calzada CNP) Heart murmur Chronic kidney disease, stage 3 Edema Back disorder Arthritis Diabetes Congestive heart disease High cholesterol High blood pressure Sinusitis Melanoma Hernia Surgical History Hx of biopsy History of ankle surgery H/O vasectomy History of back surgery Hx of appendectomy H/O heart bypass surgery Family History Father High blood pressure Cardiovascular disease Paternal Grandfather Cardiovascular disease Social History Housing: Apartment Patient Tobacco Use Status: Never used Tobacco e-Cigarette/Vaping Use: Never Used Second Hand Smoke Exposure: No service: No Current occupational status: employed 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 Current occupational exposures/hazards: No Cognitive needs: No Hearing needs: Yes Vision needs: Yes Questionnaire Thrive Questionnaire Date Thrive assessed: 10/03/24 I am a: Patient What is your living situation today?: I have a steady place to live Within the past 12 months, did the food you bought not last and you didn't have the money to get more?: Never true Within the past 12 months, did you worry whether your food would run out before you got money to buy more?: Sometimes True Do you have trouble paying for medicines?: No Do you have trouble getting transportation to medical appointments?: No Do you have trouble paying your heating and electricity bill?: No Do you have trouble taking care of your child, family member or friend?: No Do you have trouble with day-to-day activities such as bathing, preparing meals, shopping, managing finances, etc.?: I choose not to answer this question Are you currently unemployed and looking for a job?: No Are you interested in more education?: No Please select the resources that you would like help with: Housing/Nursing Home Currently or been in a relationship where the following occur: No concerns reported THRIVE Score: 1 MENDOZA-7 AMB Questionnaire MENDOZA-7 Date MENDOZA - 7 assessed: 10/23/24 Source: Developed by Drs. Francisco J Berkowitz, Jeniffer Chen, Bryan Sofia and colleagues, with an educational dayo from [employer]. Review of Systems Const Details: Const Denies chills, Denies fatigue, Denies fever(s), Denies headache(s) and Denies weakness ENT Denies dizziness and Denies headache(s) Card Denies chest pain, Denies lightheadedness, Denies dyspnea and Denies other (Palpitations) Resp Denies cough, Denies dyspnea, Denies wheezing and Denies other ( shortness of br eath) GI Denies abdominal pain, Denies melena, Denies hematochezia, Denies change in bowel habits, Denies dyspepsia and Denies nausea Denies hematuria and Denies dysuria Musc Denies abnormal gait, Denies myalgias, Denies arthralgias, Denies numbness and Denies tingling Skin/Breast Denies rash, Denies unusual bruising and Denies wounds Neuro Denies abnormal gait, Denies dizziness, Denies headache(s), Denies memory loss, Denies numbness, Denies Sensory deficit (Neuro), Denies tingling and Denies weakness Psych Denies anxiety, Denies depression, Denies memory loss Endo Denies cold intolerance, Denies fatigue, Denies heat intolerance, Denies polydipsia and Denies polyuria Aller/Immun Denies wheezing Physical exam (Primary Care) Vital Signs: Last Vital Signs Temp 98.0 F 05/26/25 11:31 Pulse 66 05/26/25 11:31 Resp 16 05/26/25 11:31 BP 120/60 05/26/25 12:14 Pulse Ox 97 05/26/25 11:31 Oxygen Delivery Method Room Air 05/26/25 11:31 BMI result Body Mass Index 35.7 Tobacco/Smoking Status: Tobacco use Status Tobacco use date assessed 05/26/25 05/26/25 11:49 Patient Tobacco Use Status Never used Tobacco 05/26/25 11:49 Tobacco use type 03/27/23 15:41 e-Cigarette/Vaping Use Never Used 05/26/25 11:49 Thrive Assessment: Date of Thrive Assessment Date Thrive assessed 10/03/24 05/26/25 11:49 Currently or been in a relationship where the following occur: No concerns reported Const Other: General: no acute distress and well developed Nutritional Appearance: well nourished Orientation/consciousness: patient oriented x3 HENMT Head: Yes normocephalic and Yes atraumatic Eyes General: appearance normal, both eyes and all related structures Pupils: Equal, round and reactive pupils present EOM: EOMs intact bilaterally Resp Effort & Inspection: normal respiratory effort Auscultation: clear to auscultation bilaterally Cardio Rate: regular rate Rhythm: regular rhythm Heart sounds: S1 normal heart sound present, S2 normal heart sound present, no gallops, no murmurs and no rubs GI Palpation (GI): No Abdominal aortic bruit present, Soft to palpation, nontender, No hepatosplenomegaly present and No Rebound tenderness present Auscultation: normal bowel sounds General: Yes no CVA tenderness Back/Spine/Pelvis Back: no CVA tenderness Cervical Spine: cervical ROM normal and No Cervical spine tenderness Thoracic/Lumbar Spine: thoraco-lumbar ROM normal, No pain with thoraco-lumbar ROM, No thoracic spinal tenderness and No lumbar spinal tenderness Extrem General: Yes normal to inspection, No edema and No calf tenderness Skin General: warm and dry. Normal skin color. Normal skin turgor Neuro General: patient oriented x3, gait normal and no focal neuro deficit Cranial nerves: Yes Equal, round and reactive pupils present Cognition (Neuro): normal cognition Gait exam (Neuro): Normal gait present Sensory Exam: No Sensory deficit (Neuro) Psych Appearance: grossly normal Affect: normal affect Attitude: cooperative Thought process: Normal thought process present Coding Level of Care Code Est Pt Level 4 (58973) Complex EM visit Add On G2211 Diagnoses Primary hypertension I10 Hypertension type: primary hypertension Type 2 diabetes mellitus with diabetic neuropathy E11.40 Vitamin D deficiency E55.9 History of fall Z91.81 Assessment & Plan Assessment & Plan (1) High blood pressure: Code(s): I10 - Essential (primary) hypertension Category: Medical Qualifiers: Hypertension type: primary hypertension Qualified Code(s): I10 - Essential (primary) hypertension Plan: Resting blood pressure is 120/60, within goal of less than 130/80. Continue current treatment regimen. Low-sodium diet encouraged. Follow-up in 3 months to establish care with a new PCP. Return sooner with symptoms or concerns. Verbalized understanding and agreed with the plan. (2) Type 2 diabetes mellitus with diabetic neuropathy: Code(s): E11.40 - Type 2 diabetes mellitus with diabetic neuropathy, unspecified Category: Medical Plan: He is followed by [facility] and was last seen on 05/06/2025; A1c was 6.6%. Continue current treatment regimen. Follow-up with endocrinology as planned. Verbalized understanding and agreed with the treatment plan. (3) Vitamin D deficiency: Code(s): E55.9 - Vitamin D deficiency, unspecified Category: Medical Plan: Recent vitamin-D level is slightly low, 29.6, previous level was 26.8. He has not been taking vitamin-D3 75 mcg due to coverage denial by his health plan; [id number] cost is significant but low dose is affordable. Vitamin D3 25 mcg daily ordered; advised to take as prescribed. Will recheck vitamin-D level in 2 months. Will review results and make changes as needed. Verbalized understanding and agreed with the plan. (4) History of fall: Code(s): Z91.81 - History of falling Category: Medical Plan: He is followed by Dr. Keene, [facility] nephrology. A message was forwarded from his business development recruiter to his PCP on 04/15/2025 regarding his history of falls. Per Nephrology, patient is dizzy and unsteady when he closes his eyes and Likely posterior column lesion (not cerebellar). Nephrology requested a referral to Neurology for an evaluation. He notes that the last time he fell was a month ago while in his room trying to take off his clothes. He braced the fall with this right hand and has been experiencing right shoulder pain. He denied hitting his head, neck, or back. He notes that he has been experiencing chronic mild pain to both shoulders, Tylenol is not effective. He uses a cane and walker for ambulation. Physical exam is benign. Naproxen as prescribed. Encouraged to move slowly and cautiously to avoid fall, and use assistive devices for ambulation at all times. Referred to [facility]. Follow-up as needed. Verbalized understanding and agreed with the plan. Orders: Referrals Neurology Referral Z91.81 - History of falling Medications: New cholecalciferol (vitamin D3) 25 mcg PO DAILY 90 tabs 2RF 90 days Changed From insulin glargine (Lantus Solostar U-100 Insulin) 130 units daily in the morning Dispense enough for a month supply 50 units (0.5 mL) subcut BID 15 mL 3RF 30 days To insulin glargine (Lantus Solostar U-100 Insulin) 130 units daily in the morning Dispense enough for a month supply 60 units subcut BID From tramadol 50 mg PO BEDTIME PRN 30 tabs 0RF pain To tramadol 50 mg PO BID PRN 30 tabs 0RF pain Discontinued cyclobenzaprine Discontinued Reason: Doctor's Order 10 mg PO BID PRN 30 tabs 0RF muscle spasm cholecalciferol (vitamin D3) Discontinued Reason: Doctor's Order 75 mcg PO DAILY 90 tabs 1RF 90 days azithromycin (Zithromax Z-Sunny) Discontinued Reason: Doctor's Order For 250 mg dose pack: take 500 mg today (day 1), then 250 mg for 4 days (days 2-5) PO 6 tabs 0RF
[2025-05-26 11:31] VITALS: BP 157/65; PULSE 66; RESP 16; TEMP 36.7; O2SAT 97; BMI 35.7
[2025-05-26 12:14] VITALS: BP 120/60
--- OUTSIDE RECORDS SUMMARY | 2025-05-26 14:10 | XMS_ITS | Encounter Summary ---
Author Organization [facility] Address [address] [place] [address] Phone Care Team Providers Care Manager Solar Name Role Phone Tramaine Calzada CNP Primary Care Provider [phone] Encounter Details Date Type Department Care Team (Late st Contact Info) Description 06/24/2024 Office Communication [facility] [address] [place] [id number] Erin Morley, RN [address] [place] [address] Social History Tobacco Use Types Packs/Day Years [...] filedocumented in this encounter Care Teams Manager Solar Relationship Specialty Start Date End Date Tramaine Calzada CNP [address] [facility] PCP - General 03/02/23 documented as of this encounter
--- OUTSIDE RECORDS SUMMARY | 2025-05-26 14:10 | XMS_ITS | Encounter Summary ---
Author Organization [facility] Address [address] [address] Phone Care Team Providers Care Tool And Die Engineer Name Role Phone Tramaine Calzada CNP Primary Care Provider [phone] Reason for Visit * Reason Onset Date Comments Med Refill 05/20/2024 Encounter Details Date Type Department Care Team (Late st Contact Info) Description 05/20/2024 Refill [facility] [address] [place] [id number] Jerman Keene MD [address] [phone] Social History Tobacco Use Types Packs/Day Years [...] on filedocumented in this encounter Care Teams Tool And Die Engineer Relationship Specialty Start Date End Date Tramaine Calzada CNP [address] [place], [place] [id number] PCP - General 03/02/23 documented as of this encounter
--- OUTSIDE RECORDS SUMMARY | 2025-05-26 14:11 | XMS_ITS | Continuity of Care Document ---
Author Organization [facility] Address [address] [place] [address] Phone [phone] Care Team Providers Care Front Desk Name Role Phone Elsi Redd CNP Care Team Information Receive r [phone] Problems Active Problems Provider Date Chronic kidney [...] SIG Qnty Indications Order ing Provider Date Insulin Glargine-Ikzf404Mnmg/ ML Solution Pen-Inject inject 120 units in Am 45ml Evan Lopez M.D. 05/06/2025 Rosuvastatin Hvzemsl46ki Tablets Take 1 Tablet By Mouth Daily Elsi Redd CNP Yzeljamrq77zi Tablets Take 1 Tablet By Mouth Daily Elsi Redd CNP Ykfrdnuvoh06bp Tablets Take 1 Tablet By Mouth Twice Daily - Must Take With Meal / Food Elsi Redd CNP Zpqtenmyldt083fy Tablets Take 1 Tablet By Mouth Daily Elsi Redd CNP Insulin Lispro (1 Unit Dial)100Unit/ML Solution Pen-Inject inject up to 25 units four times daily 45ml Evan Lopez M.D. Wmaosfmitka137fs Tablets 1 by mouth every day 90tabs Unknown Ranolazine LQ031ix Tablets ER 12HR Take 1 Tablet By Mouth Twice Daily Elsi Redd CNP Kipgfcuaht944rr Capsules Unknown Nephro Vitamins0.8mg Tablets Take 1 Tablet By Mouth Every Morning With Breakfast Jayme Keene MD Clopidogrel Jxwbsgihz62pw Tablets Take 1 Tablet By Mouth Daily Marisa Lovell MD Clonidine0.2mg/24HR Patches Weekly Jayme Keene MD Aspirin 8181mg Tablets DR 1 by mouth every day Unknown History Medications Vtvuib746Svbq/ML Solution inject 80 units subcutaneously twice daily 30ml Evan Lopez M.D. 05/06/2025 - 05/06/2025 Humalog Darvcgh114Rgoz/ML Solution Pen-Inject inject 120 units per day 45ml Evan Lopez M.D. 12/24/2024 - 05/06/2025 Vital Signs Date Vital Result Comment 05/06/2025 11:32am BP Systolic 132 mmHg BP Diastolic 76 mmHg Heart Rate 72 /min Height 73 inches 6'1 Weight 276.00 lb per pt BMI (Body Mass Index) 36.4 kg/m2 Results Test Acquired Date Facility Test Result H/L Range N ote Glucose Fingerstick 05/06/2025 Inhouse Glucose Fingerstick 95 Glucose Fingerstick 12/24/2024 Inhouse Glucose Fingerstick 92 Glucose Fingerstick 08/13/2024 Inhouse Glucose Fingerstick 67 Hemoglobin A1c 08/13/2024 Inhouse Hemoglobin A1c 6.2% Glucose Fingerstick 05/07/2024 Inhouse Glucose Fingerstick 104 Procedures Date Code Description Status 05/06/2025 62280 Glucose Monitoring Interpeta tion And Report Completed 05/07/2024 61193 Glucose Monitoring Interpeta tion And Report Completed Medical Devices Description No Information Available Encounters Type Date Location Provider Dx Diagnosis Office Visit 05/06/2025 11:15a Main Office Evan Lopez M.D. E11.8 Type 2 diabetes mellitus with unspecified complications N18.6 End stage renal dise ase Assessments Date Code Description Provider 05/06/2025 E11.8 Type 2 diabetes mellitus with unspecified complications Evan Lopez M.D. 05/06/2025 N18.6 End stage renal disease Evan Lopez M.D. Plan of Treatment Future Appointment(s):* 09/17/2025 10:00 am - Evan Lopez M.D. at Main Office 08/13/2024 - Evan Lopez M.D.* E11.8 Type 2 diabetes mellitus with unspecified complications * N18.6 End stage renal disease * Z99.2 Dependence on renal dialysis Functional Status Description No Information Available Mental Status Description No Information Available Referrals Description No Information Available
--- OUTSIDE RECORDS SUMMARY | 2025-05-26 14:11 | XMS_ITS | Encounter Summary ---
Author Organization [facility] Address [address] [place] [address] Phone Care Team Providers Care Firer Diesel Locomotive Name Role Phone Tramaine Calzada CNP Primary Care Provider [phone] Encounter Details Date Type Department Care Team (Late st Contact Info) Description 05/13/2024 Office Communication [facility] [address] [place] [phone] Mary Valero, RN [address] [place] [address] Social History Tobacco Use Types Packs/Day Years [...] on filedocumented in this encounter Care Teams Firer Diesel Locomotive Relationship Specialty Start Date End Date Tramaine Calzada CNP [address] [facility] [place] [id number] PCP - General 03/02/23 documented as of this encounter
--- OUTSIDE RECORDS SUMMARY | 2025-05-26 14:11 | XMS_ITS | Clinical Summary ---
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 Operator Name Role Phone Tramaine Calzada MARTIN Primary Care Provider [phone] Allergies Active Allergy Reactions Criticality Noted Date [...] time each day 90 capsule 3 4 Active cloNIDine (Hfdddmqt-VOX-1 ) 0.2 MG/24HR patch weekly Place 1 [...] tablet 3 4 07/23/20 25 Active B Urfwrle-G-Hkkql Acid (B complex-vitamin C-folic acid) 1 MG tablet Take 1 tablet by mouth 1 (one) time each day with breakfast 30 tablet 11 5 01/13/20 26 Active Active Problems Problem Noted Date Diagnosed [...] Encounters Date Type Department Care Team Description 05/13/2025 Treatment [facility] [address] [phone] Jerman Keene MD End stage renal disease; Dependence on renal dialysis 05/11/2025 Orders Only [facility] [address] [address] Jerman Keene MD 04/15/2025 Treatment [facility] [address] [place] [phone] Jerman Keene MD End stage renal disease; Dependence on renal dialysis 03/25/2025 Treatment [facility] [address] [address] Jerman Keene MD End stage renal disease; Dependence on renal dialysis 02/25/2025 Treatment [facility] [address] [address] Jerman Keene MD End stage renal disease; Dependence on renal dialysis from Last 3 Months Immunizations Immunization Administration Dates Next Due Influenza (IM) Preservative [...] Colorectal Cancer Screening: Sigmoidoscopy 2003 Pneumococcal Vaccine: 50+ Ye ars (3 of 3 - PCV20 or PCV21) 06/10/2021 04/15/2021, 02/10/2016 Diabetes: Ophthalmology Exam 03/02/202305/2022, 02/17/2020, 01/12/2020, Additional history exists Diabetes: Pedal Pulse Checked 03/02/2023 Diabetes: Sensory Foot Exam 03/02/2023 Diabetes: Visual Foot Exam 03/02/2023 Influenza Vaccine (#1) 2025 , 06/05/2019, 09/05/2018, Additional history exists Diabetes: Hemoglobin A1C 06/04/2025 025, 12/03/2024, 09/11/2024, Additional history exists Procedures Procedure Name Priority Date/Time Associated Diagnosis Comments HEPATITIS B SURFACE ANTIGEN W/REFL CONFIRM Routine 05/11/2025 3:00 AM EDT TRANSFERRIN SATURATION Routine 3:00 AM EDT ELECTROLYTE PANEL Routine 05/11/2025 3:0 0 AM EDT MAGNESIUM Routine 05/11/2025 3:00 AM EDT LIH (HC) Routine 05/11/2025 3:00 AM EDT PROTEIN, TOTAL, SERUM Routine 05/11/2025 3:00 AM EDT GLUCOSE, RANDOM Routine 05/11/2025 3:00 AM EDT LACTATE DEHYDROGENASE Routine 05/11/2025 3:00 AM EDT BUN/CREATININE RATIO Routine 05/11/2025 3:00 AM EDT BUN Routine 05/11/2025 3:00 AM EDT CREATININE, SERUM Routine 05/11/2025 3:0 0 AM EDT BILIRUBIN, TOTAL Routine 05/11/2025 3:00 AM EDT AST Routine 05/11/2025 3:00 AM EDT ALKALINE PHOSPHATASE Routine 05/11/2025 3:00 AM EDT CALCIUM PHOSPHORUS PRODUCT, ADJUSTED (HC) Routine 05/11/2025 3:00 AM EDT ALT Routine 05/11/2025 3:00 AM EDT PTH, INTACT Routine 05/11/2025 3:00 AM EDT FERRITIN Routine 05/11/2025 3:00 AM EDT CBC AND DIFFERENTIAL Routine 05/11/2025 3:00 AM EDT HEPATITIS B SURFACE ANTIGEN W/REFL CONFIRM Routine 04/08/2025 3:00 AM EDT TRANSFERRIN SATURATION Routine 3:00 AM EDT PROTEIN, TOTAL, SERUM Routine 04/08/2025 3:00 AM EDT ELECTROLYTE PANEL Routine 04/08/2025 3:0 0 AM EDT MAGNESIUM Routine 04/08/2025 3:00 AM EDT LIH (HC) Routine 04/08/2025 3:00 AM EDT GLUCOSE, RANDOM Routine 04/08/2025 3:00 AM EDT LACTATE DEHYDROGENASE Routine 04/08/2025 3:00 AM EDT BILIRUBIN, TOTAL Routine 04/08/2025 3:00 AM EDT BUN/CREATININE RATIO Routine 04/08/2025 3:00 AM EDT AST Routine 04/08/2025 3:00 AM EDT ALT Routine 04/08/2025 3:00 AM EDT ALKALINE PHOSPHATASE Routine 04/08/2025 3:00 AM EDT CALCIUM PHOSPHORUS PRODUCT, ADJUSTED (HC) Routine 04/08/2025 3:00 AM EDT PTH, INTACT Routine 04/08/2025 3:00 AM EDT FERRITIN Routine 04/08/2025 3:00 AM EDT GLUCOSE, URINE, 24 HOUR Routine 04/08/2025 3:00 AM EDT CBC AND DIFFERENTIAL Routine 04/08/2025 3:00 AM EDT PD ADEQUECY BUNDLED Routine 04/08/2025 3 :00 AM EDT CONFIRMATION TEST HCV Routine 03/04/2025 3:00 AM EDT HEPATITIS C ABS W/REFLEX RNA DETECTR Routine 03/04/2025 3:00 AM EDT HEPATITIS B SURFACE ANTIGEN W/REFL CONFIRM Routine 03/04/2025 3:00 AM EDT TRANSFERRIN SATURATION Routine 3:00 AM EDT PROTEIN, TOTAL, SERUM Routine 03/04/2025 3:00 AM EDT LIPID PANEL Routine 03/04/2025 3:00 AM EDT ELECTROLYTE PANEL Routine 03/04/2025 3:0 0 AM EDT MAGNESIUM Routine 03/04/2025 3:00 AM EDT LIH (HC) Routine 03/04/2025 3:00 AM EDT LACTATE DEHYDROGENASE Routine 03/04/2025 3:00 AM EDT GLUCOSE, RANDOM Routine 03/04/2025 3:00 AM EDT CREATININE, SERUM Routine 03/04/2025 3:0 0 AM EDT BUN Routine 03/04/2025 3:00 AM EDT BILIRUBIN, TOTAL Routine 03/04/2025 3:00 AM EDT ALT Routine 03/04/2025 3:00 AM EDT BUN/CREATININE RATIO Routine 03/04/2025 3:00 AM EDT AST Routine 03/04/2025 3:00 AM EDT ALKALINE PHOSPHATASE Routine 03/04/2025 3:00 AM EDT CALCIUM PHOSPHORUS PRODUCT, ADJUSTED (HC) Routine 03/04/2025 3:00 AM EDT FERRITIN Routine 03/04/2025 3:00 AM EDT PTH, INTACT Routine 03/04/2025 3:00 AM EDT HEMOGLOBIN A1C Routine 03/04/2025 3:00 AM EDT RETICULOCYTES Routine 03/04/2025 3:00 AM EDT CBC AND DIFFERENTIAL Routine 03/04/2025 3:00 AM EDT from Last 3 Months Results * LIH (05/11/2025 3:00 AM EDT) Only the most recent of3 resultswithin the time period is included. Lipemia Normal Normal [facility] Icterus Normal Normal [facility] Hemolysis Normal Normal [facility] 05/11/2025 3:00 AM EDT 05/12/2025 1:55 PM EDT us Jerman Keene MD LAB [id number] LICITED RESULTS Final Result Performing Organization Address [facility] Co de Phone Number [facility] [address] [place] [address] * Calcium Phosphorus Product, Adjusted (05/11/2025 3:00 AM EDT) Only the most recent of3 resultswithin the time period is included. Albumin 4.4 3.6 - 5.4 g/dL [facility] Calcium 8.9 8.6 - 10.3 mg/dL [facility] Phosphorus, Serum 4.0 2.5 - 5.0 mg/dL [facility] Ca*PO4 35.6 <55.0 mg2/dL2 [facility] Calcium, Adjusted Total 8.9 8.6 - 10.3 mg/dL [facility] CA*PO4 CORRCTD 35.6 <55.0 mg2/dL2 [facility] 05/11/2025 3:00 AM EDT 05/12/2025 1:55 PM EDT us Jerman Keene MD LAB [id number] LICITED RESULTS Final Result Performing Organization Address [facility] Co de Phone Number [facility] [address] [place] [address] * Hepatitis B Surface Ag w/Reflex Confirmation (05/11/2025 3:00 AM EDT) Only the most recent of3 resultswithin the time period is included. Hep B Surface Antigen Negative Negative [facility] 05/11/2025 3:00 AM EDT 05/12/2025 1:55 PM EDT us Jerman Keene MD LAB BLOOD ORDERABLES Final Resu lt Performing Organization Address [facility] Co de Phone Number [facility] [address] [place] [address] * BUN/CREATININE RATIO (05/11/2025 3:00 AM EDT) Only the most recent of3 resultswithin the time period is included. BUN/Creatinine Ratio 8.5 <=23.0 [facility] 05/11/2025 3:00 AM EDT 05/12/2025 1:55 PM EDT us Jerman Keene MD LAB [id number] LICITED RESULTS Final Result Performing Organization Address [facility] de Phone Number [facility] [address] [place] [address] * (ABNORMAL) TSAT (05/11/2025 3:00 AM EDT) Only the most recent of3 resultswithin the time period is included. Iron 49(L) 65 - 175 ug/dL [facility] Transferrin 192(L) 215 - 365 mg/dL [facility] TIBC 269 211 - 406 ug/dL [facility] Iron Saturation (TSat) 18(L) 22 - 52 % [facility] 05/11/2025 3:00 AM EDT 05/12/2025 1:55 PM EDT us Jerman Keene MD LAB BLOOD ORDERABLES Final Resu lt Performing Organization Address [facility] Co de Phone Number [facility] [address] [place] [address] * (ABNORMAL) CBC and Differential (05/11/2025 3:00 AM EDT) Only the most recent of3 resultswithin the time period is included. DIFFERENTIAL MANUAL, 2 Not Indicated [facility] White Blood Cells 9.5(H) 4.2 - 9.1 K/uL [facility] RBC 3.84(L) 4.63 - 6.08 M/uL [facility] Hgb 12.7(L) 13.7 - 17.5 g/dL [facility] Hemoglobin x 3 38.1(L) 41.1 - 52.5 g/dL [facility] Hematocrit 38.7(L) 40.1 - 51.0 % [facility] MCV 100.8(H) 79.0 - 92.2 fL [facility] MCH 33.1(H) 25.7 - 32.2 pg [facility] MCHC 32.8 32.3 - 36.5 g/dL [facility] RDW 14.4 11.6 - 14.4 % [facility] Platelets 237 163 - 337 K/uL [facility] MPV 10.1 9.1 - 13.0 fL [facility] Neutrophils Relative 73.0(H) 34.0 - 67.9 % [facility] Lymphocytes Relative 14.2(L) 21.8 - 53.1 % [facility] Monocytes 8.7 5.3 - 12.2 % [facility] Eosinophils Relative 3.5 0.8 - 7.0 % [facility] Basophils Relative 0.4 0.2 - 1.2 % [facility] Immature Granulocytes 0.2 0.0 - 1.0 % [facility] 05/11/2025 3:00 AM EDT 05/12/2025 2:04 PM EDT us Jerman Keene MD LAB BLOOD ORDERABLES Final Resu lt [facility] [address] [place] [address] * (ABNORMAL) BUN (05/11/2025 3:00 AM EDT) Only the most recent of2 resultswithin the time period is included. BUN 31(H) 7 - 25 mg/dL [facility] 05/11/2025 3:0 0 AM EDT 05/12/2025 1:55 PM EDT us Jerman Keene MD LAB BLOOD ORDERABLES Final Resu lt Performing Organization Address [facility] Co de Phone Number [facility] [address] [place] [address] * ALT (05/11/2025 3:00 AM EDT) Only the most recent of3 resultswithin the time period is included. ALT (SGPT) 17 10 - 49 U/L [facility] 05/11/2025 3:00 AM EDT 05/12/2025 1:55 PM EDT us Jerman Keene MD LAB BLOOD ORDERABLES Final Resu lt Performing Organization Address [facility] de Phone Number [facility] [address] [place] [address] * AST (05/11/2025 3:00 AM EDT) Only the most recent of3 resultswithin the time period is included. AST (SGOT) 25 <34 U/L [facility] 05/11/2025 3:00 AM EDT 05/12/2025 1:55 PM EDT us Jerman Keene MD LAB BLOOD ORDERABLES Final Resu lt Performing Organization Address [facility] de Phone Number [facility] [address] [place] [address] * Protein, total (05/11/2025 3:00 AM EDT) Only the most recent of3 resultswithin the time period is included. Total Protein 7.2 6.4 - 8.9 g/dL [facility] 05/11/2025 3:00 AM EDT 05/12/2025 1:55 PM EDT us Jerman Keene MD LAB BLOOD ORDERABLES Final Resu lt Performing Organization Address [facility] Co de Phone Number [facility] [address] [place] [address] * Alkaline phosphatase (05/11/2025 3:00 AM EDT) Only the most recent of3 resultswithin the time period is included. Alkaline Phosphatase 60 46 - 116 U/L [facility] 05/11/2025 3:00 AM EDT 05/12/2025 1:55 PM EDT us Jerman Keene MD LAB BLOOD ORDERABLES Final Resu lt Performing Organization Address [facility] Co de Phone Number [facility] [address] [place] [address] * PTH, Intact (05/11/2025 3:00 AM EDT) Only the most recent of3 resultswithin the time period is included. PTH, Intact 175 160 - 721 pg/mL [facility] Comment: Suggested (KDIGO) ESRD maintenance range is two to nine times the upper normal limit (80.1 pg/mL) for the laboratory. 05/11/2025 3:00 AM EDT 05/12/2025 1:55 PM EDT us Jerman Keene MD LAB BLOOD ORDERABLES Final Resu lt Performing Organization Address [facility] Co de Phone Number [facility] [address] [place] [address] * Magnesium (05/11/2025 3:00 AM EDT) Only the most recent of3 resultswithin the time period is included. Magnesium 2.2 1.9 - 2.7 mg/dL [facility] 05/11/2025 3:00 AM EDT 05/12/2025 1:55 PM EDT us Jerman Keene MD LAB BLOOD ORDERABLES Final Resu lt Performing Organization Address [facility] Co de Phone Number [facility] [address] [place] [address] * Lactate dehydrogenase (05/11/2025 3:00 AM EDT) Only the most recent of3 resultswithin the time period is included. LDH 226 120 - 246 U/L [facility] 05/11/2025 3:00 AM EDT 05/12/2025 1:55 PM EDT us Jerman Keene MD LAB BLOOD ORDERABLES Final Resu lt Performing Organization Address [facility] Co de Phone Number [facility] [address] [place] [address] * (ABNORMAL) Glucose, random (05/11/2025 3:00 AM EDT) Only the most recent of3 resultswithin the time period is included. Glucose 120(H) 70 - 99 mg/dL [facility] Comment: ADA guidelines outline the following fasting glucose ranges: Normal: <100 Prediabetes: 100-125 Diabetes: >125 05/11/2025 3:00 AM EDT 05/12/2025 1:55 PM EDT us Jerman Keene MD LAB BLOOD ORDERABLES Final Resu lt Performing Organization Address [facility] Co de Phone Number [facility] [address] [place] [address] * Ferritin (05/11/2025 3:00 AM EDT) Only the most recent of3 resultswithin the time period is included. Ferritin 320 22 - 322 ng/mL [facility] 05/11/2025 3:00 AM EDT 05/12/2025 1:55 PM EDT us Jerman Keene MD LAB BLOOD ORDERABLES Final Resu lt Performing Organization Address [facility] Co de Phone Number [facility] [address] [place] [address] * (ABNORMAL) Creatinine, serum (05/11/2025 3:00 AM EDT) Only the most recent of2 resultswithin the time period is included. Creatinine 3.65(H) 0.70 - 1.30 mg/dL [facility] 05/11/2025 3:00 AM EDT 05/12/2025 1:55 PM EDT us Jerman Keene MD LAB BLOOD ORDERABLES Final Resu lt Performing Organization Address [facility] Co de Phone Number [facility] [address] [place] [address] * Bilirubin, total (05/11/2025 3:00 AM EDT) Only the most recent of3 resultswithin the time period is included. Total Bilirubin 0.5 0.3 - 1.2 mg/dL [facility] 05/11/2025 3:00 AM EDT 05/12/2025 1:55 PM EDT us Jerman Keene MD LAB BLOOD ORDERABLES Final Resu lt Performing Organization Address [facility] Co de Phone Number [facility] [address] [place] [address] * Electrolyte panel (05/11/2025 3:00 AM EDT) Only the most recent of3 resultswithin the time period is included. Sodium 140 136 - 145 mEq/L [facility] Potassium 4.1 3.4 - 5.0 mEq/L [facility] Chloride 104 98 - 107 mEq/L [facility] Bicarbonate (CO2) 24 21 - 31 mEq/L [facility] Anion Gap 12 3 - 14 mEq/L [facility] 05/11/2025 3:00 AM EDT 05/12/2025 1:55 PM EDT us Jerman Keene MD LAB BLOOD ORDERABLES Final Resu lt Performing Organization Address [facility] Co de Phone Number [facility] [address] [place] [address] * (ABNORMAL) PD Adequecy Bundled (04/08/2025 3:00 AM EDT) Total Drain Volume 24 Hr 9,799 mL [facility] Comment:REVISED REPORT, Prev iously reported as: 9 799 (Reported 04/10/2025 12:43) Patient Height (FT) 187.9 cm [facility] Dry Weight 125.0 kg [facility] Urine Volume 2,800 mL [facility] Collection Interval, Ur 1,440 min [facility] Creat, 24 HR Dial 1.53 mg/dL [facility] [place] Creat, 24 Hr Dial 1.43 mg/dL [facility] Urea Nitrogen, 24HR Dial 28 mg/dL [facility] Body Surface Area 2.49 m2 [facility] Comment:Body surface area es timated from [place] and [place]a formula Total Body Water 59.7 L [facility] Comment:Volume of distributi on estimated from [place] and [place] formula Creatinine, Urine 63 mg/dL [facility] Comment:See 24 Hour Urine Cr eatinine for Reference Range in mg/24hr Urea Nitrogen, Ur 447.6 mg/dL [facility] Comment:See 24 Hour Urine Ur ea Nitrogen for Reference Range in g/24hr PNA 129.2 g/day [facility] Comment:REVISED REPORT, Prev iously reported as: 108.8 (Reported 04/10/2025 15:31) NPNA (PD) 1.3 g/kg/day [facility] Comment: Providers should strive to achieve an nPNA of greater than or equal to 0.9 g/kg/day. nPNA valid only if protein loss <15 g/day. REVISED REPORT, Previously reported as: 1.1 (Reported 04/10/2025 15:31) Creatinine 3.53(H) 0.70 - 1.30 mg/dL [facility] BUN 33(H) 7 - 25 mg/dL [facility] Creatinine renal clearance 24.1(L) 85.0 - 125.0 mL/min/1. 73m2 [facility] Kt/V, Residual 4.45 [facility] Dial KT/V 0.97 [facility] Comment:REVISED REPORT, Prev iously reported as: 0.00 (Reported 04/10/2025 16:45) Kt/V, Total 5.42 [facility] Comment: The K/DOQI 2006 recommendations for [...] is greater than or equal to 1.7. REVISED REPORT, Previously reported as: 4.45 (Reported 04/10/2025 16:45) Weekly Residual CrCl 243.0 L/wk/1.73 m2 [facility] Weekly Dialysate CrCl 19.3 L/wk/1.73 m2 [facility] Comment:REVISED REPORT, Prev iously reported as: 0.0 (Reported 04/10/2025 16:45) Weekly Residual GFR 213.9 L/wk/1.73 m2 [facility] Comment: Calculated by the arithmetic mean of urea and creatinine clearance(Guideline 6 of KDOQI Adequacy 2000) Weekly Total CRCL 233.2 L/wk/1.73 m2 [facility] Comment: Calculated by adding the GFR and Weekly Dialysate CrCl REVISED REPORT, Previously reported as: 213.9 (Reported 04/10/2025 16:45) 04/08/2025 3:00 AM EDT 04/10/2025 3:42 PM EDT us Jerman Keene MD LAB BLOOD ORDERABLES Edited Res ult - Final [facility] [address] [place] [address] * Glucose, urine, 24 hour (04/08/2025 3:00 AM EDT) Glucose 24 HR Dial 936 mg/dL [facility] 04/08/2025 3:00 AM EDT 04/10/2025 3:42 PM EDT us Jerman Keene MD LAB URINE ORDERABLES Final Resu lt [facility] [address] [place] [address] * Confirmation Test HCV (03/04/2025 3:00 AM EDT) Hep C Ab Confirmation Not needed [facility] 03/04/2025 3:00 AM EDT 03/05/2025 12:43 PM EDT us Jerman Keene MD LAB BLOOD ORDERABLES Final Resu lt Performing Organization Address [facility] Co de Phone Number [facility] [address] [place] [address] * HEPATITIS C ABS W/REFLEX RNA DETECTR (03/04/2025 3:00 AM EDT) Hep C Virus Ab Non-Reacti ve Non-Reacti ve [facility] 03/04/2025 3:00 AM EDT 03/05/2025 2:12 PM EDT us Jerman Keene MD LAB [id number] LICITED RESULTS Final Result Performing Organization Address [facility] de Phone Number [facility] [address] [place] [address] * Reticulocytes (03/04/2025 3:00 AM EDT) Reticulocyte 1.7 0.5 - 1.8 % [facility] Retic Ct Pct 34.5 28.2 - 35.7 pg [facility] 03/04/2025 3:00 AM EDT 03/05/2025 12:43 PM EDT us Jerman Keene MD LAB BLOOD ORDERABLES Final Resu lt Performing Organization Address [facility] de Phone Number [facility] [address] [place] [address] * (ABNORMAL) Hemoglobin A1c (03/04/2025 3:00 AM EDT) Hemoglobin A1C 5.9(H) <5.7 % [facility] Comment: Methodology: Enzymatic Normal: <5.7% Prediabetes: 5.7-6.4% Diabetes: >6.4% Diabetic Glucose Control Evaluation: Therapeutic action suggested at >8.0% ADA recommends a glycemic goal of <7.0% 03/04/2025 3:00 AM EDT 03/05/2025 12:43 PM EDT Jerman Keene MD LAB BLOOD ORDERABLES Final Resu lt Performing Organization Address [facility] Co de Phone Number [facility] [address] [place] [address] * (ABNORMAL) Lipid panel (03/04/2025 3:00 AM EDT) Cholesterol 115 mg/dL [facility] Comment: Optimal: <200 Borderline: 200-239 High Risk: >239 Triglycerides 313(H) mg/dL [facility] Comment: Optimal: <150 Borderline: 150-200 High Risk: >200 HDL 27(L) mg/dL [facility] Comment: Optimal: >59 Borderline: 40-59 High Risk: <40 LDL-Calc 25 mg/dL [facility] Comment: Optimal: <100 Borderline: 100-159 High Risk: >159 VLDL Cholesterol Trino 63(H) mg/dL [facility] Comment: Optimal: <30 Borderline: 30-40 High Risk: >40 Chol/HDL Ratio 4.3(H) [facility] Comment: Optimal: <3.3 High Risk: >6.2 03/04/2025 3:00 AM EDT 03/05/2025 2:12 PM EDT Jerman Keene MD LAB BLOOD ORDERABLES Final Resu lt Performing Organization Address [facility] Co de Phone Number [facility] [address] [place] [address] from Last 3 Months Insurance [facility] Care Teams 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
== END 2025-05-26 12:29 | disposition home or self-care (01) ==
LOC: HO.HMCFM 11:19
PROVIDERS: PCP Nurse Practitioner Family; Visit Provider Nurse Practitioner Family
DX: I10 Essential (primary) hypertension (principal); E11.40 Type 2 diabetes mellitus with diabetic neuropathy, unspecified; E55.9 Vitamin D deficiency, unspecified; Z91.81 History of falling

== ENCOUNTER 2025-06-12 10:00 | Outpatient (AMB) | payer OTHER, SELFPAY ==
--- NOTE | 2025-06-12 10:19 | MHC.PC.OV ---
Vital Signs 06/12/25 10:34 Height 6 ft 2 in Weight 277 lb BMI 35.6 BP 132/61 Blood Pressure Location Rt brachial Position Sitting Respiration 16 Pulse 71 Pulse Source Pulse Oximeter Temp 97.8 F Temp Source Oral Pulse Oximetry (%) 98 Oxygen Delivery Method Room Air Intake Visit Reasons: sinus infection Intake Note: patient here c/o sinus infection Maintenance Chief Required: No Allergies Sulfa (Sulfonamide Antibiotics) Allergy (Intermediate, Verified 06/12/25 10:58) Swelling Latex, Natural Rubber Allergy (Mild, Verified 06/12/25 10:58) Redness of Skin grapefruit Adverse Reaction (Unknown, Uncoded 06/12/25 10:58) Unknown Medication List - Last Reconciled 06/12/25 by Tramaine Calzada CNP allopurinol 300 mg PO DAILY 90 days aspirin (Adult Low Dose Aspirin) 81 mg PO DAILY B complex-vitamin C-folic acid 0.8 mg (Nephro Vitamins) 1 tab PO DAILY carvedilol 25 mg PO BID 30 days cholecalciferol (vitamin D3) 25 mcg PO DAILY 90 days clonidine patches transdermal clopidogrel 75 mg PO DAILY gabapentin 300 mg PO TID PRN 90 days icosapent ethyl (Vascepa) 2 grams PO BID insulin glargine (Lantus Solostar U-100 Insulin) 60 units subcut BID insulin lispro 1 sliding scale dose subcut USEASDIRECTD ranolazine ER 500 mg PO BID 30 days rosuvastatin (Crestor) 40 mg PO DAILY 30 days torsemide 20 mg PO DAILY 30 days tramadol 50 mg PO BID PRN Tobacco use date assessed: 06/12/25 Fall risk assessment: 2 + Falls in past year Last assessed Fall Risk: 06/12/25 Dental Screening Dental Screen Date: 06/12/25 Did you have a dental visit in the last 12 months?: No Did you have a dental problem in the last 6 months where you did not have access to dental care?: No Was dental information given to patient?: Patient has dentist HPI HPI Comments History of Present Illness Details 70-year-old male presents with complaints of sinus infection. He notes pea green right nasal discharge mix with blood at times, bad ordor, and swelling below the righ eye lid, and mild right sided headache; symptoms ongoing for about a month. He has an appointment with ENT in 06/21/2025. He is having TAVR on 06/26/25 and wants him to be infection free before the procedure. No fever, chills, body aches, fatigue, weakness. No cough. [facility] Medical History (Updated 05/26/25 @ 11:48 by Tramaine Calzada CNP) Heart murmur Chronic kidney disease, stage 3 Edema Back disorder Arthritis Diabetes Congestive heart disease High cholesterol High blood pressure Sinusitis Melanoma Hernia Surgical History Hx of biopsy History of ankle surgery H/O vasectomy History of back surgery Hx of appendectomy H/O heart bypass surgery Family History Father High blood pressure Cardiovascular disease Paternal Grandfather Cardiovascular disease Social History Housing: Apartment Patient Tobacco Use Status: Never used Tobacco e-Cigarette/Vaping Use: Never Used Second Hand Smoke Exposure: No service: No Current occupational status: employed 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 [employer] Current occupational exposures/hazards: No Cognitive needs: No Hearing needs: Yes Vision needs: Yes Questionnaire Thrive Questionnaire Date Thrive assessed: 10/03/24 I am a: Patient What is your living situation today?: I have a steady place to live Within the past 12 months, did the food you bought not last and you didn't have the money to get more?: Never true Within the past 12 months, did you worry whether your food would run out before you got money to buy more?: Sometimes True Do you have trouble paying for medicines?: No Do you have trouble getting transportation to medical appointments?: No Do you have trouble paying your heating and electricity bill?: No Do you have trouble taking care of your child, family member or friend?: No Do you have trouble with day-to-day activities such as bathing, preparing meals, shopping, managing finances, etc.?: I choose not to answer this question Are you currently unemployed and looking for a job?: No Are you interested in more education?: No Please select the resources that you would like help with: Housing/Jail Currently or been in a relationship where the following occur: No concerns reported THRIVE Score: 1 MENDOZA-7 AMB Questionnaire MENDOZA-7 Date MENDOZA - 7 assessed: 10/23/24 Source: Developed by Drs. Francisco J Berkowitz, Jeniffer Chen, Bryan Sofia and colleagues, with an educational dayo from [employer]. Review of Systems Const Details: Const Denies chills, Denies fatigue, Denies fever(s), Denies headache(s) and Denies weakness HEENT Reports as per HPI Card Denies chest pain, Denies lightheadedness, Denies dyspnea and Denies other (Palpitations) Resp Denies cough, Denies dyspnea, Denies wheezing and Denies other ( shortness of breath) Physical exam (Primary Care) Vital Signs: Last Vital Signs Temp 97.8 F 06/12/25 10:34 Pulse 71 06/12/25 10:34 Resp 16 06/12/25 10:34 BP 132/61 06/12/25 10:34 Pulse Ox 98 06/12/25 10:34 Oxygen Delivery Method Room Air 06/12/25 10:34 BMI result Body Mass Index 35.6 Tobacco/Smoking Status: Tobacco use Status Tobacco use date assessed 06/12/25 06/12/25 10:38 Patient Tobacco Use Status Never used Tobacco 06/12/25 10:20 Tobacco use type 03/27/23 15:41 e-Cigarette/Vaping Use Never Used 06/12/25 10:20 Thrive Assessment: Date of Thrive Assessment Date Thrive assessed 10/03/24 06/12/25 10:20 Currently or been in a relationship where the following occur: No concerns reported Const Other: General: no acute distress and well developed Nutritional Appearance: well nourished Orientation/consciousness: patient oriented x3 HENMT Head is normocephalic Bilateral ear canal and TM are normal Right turbinates with significant edema and erythema, left nasal turbinates normal Oropharynx are pink and moist Right-sided maxillary sinus tenderness to palpation No auricular or cervical lymphadenopathy Eyes General: appearance normal, both eyes and all related structures, moderate puffiness below the right eyelid Pupils: Equal, round and reactive pupils present EOM: EOMs intact bilaterally Resp Effort & Inspection: normal respiratory effort Auscultation: clear to auscultation bilaterally Cardio Rate: regular rate Rhythm: regular rhythm Heart sounds: S1 normal heart sound present, S2 normal heart sound present, no gallops, no murmurs and no rubs Coding Level of Care Code Est Pt Level 4 (26038) Diagnoses Sinusitis J32.9 Assessment & Plan Assessment & Plan (1) Sinusitis: Code(s): J32.9 - Chronic sinusitis, unspecified Category: Medical Plan: 70-year-old male presents with complaints of sinus infection. He notes pea green right nasal discharge mix with blood at times, bad ordor, and swelling below the righ eye lid, and mild right sided headache; symptoms ongoing for about a month. He has an appointment with ENT in 06/21/2025. He is having TAVR on 06/26/25 and wants him to be infection free before the procedure. No fever, chills, body aches, fatigue, weakness. No cough. Right turbinates with significant edema and erythema, left nasal turbinates normal Right-sided maxillary sinus tenderness to palpation. Moderate puffiness below the right eyelid. Amoxicillin as prescribed. Flonase as needed. May take Tylenol as needed for pain, fever, or discomfort. Follow-up with worsening or new symptoms. Verbalized understanding and agreed with the plan. Medications: Refilled amoxicillin 500 mg PO Q12H 14 tabs 0RF 7 days
[2025-06-12 10:34] VITALS: BP 132/61; PULSE 71; RESP 16; TEMP 36.6; O2SAT 98; BMI 35.6
--- OUTSIDE RECORDS SUMMARY | 2025-06-12 10:58 | XMS_ITS | Continuity of Care Document ---
Author Organization [facility] Address [address] [place] [address] Phone [phone] Care Team Providers Care Cooker Operator Name Role Phone Elsi Redd CNP Care Team Information Receive r [phone] Problems Active Problems Provider Date Chronic kidney [...] Qnty Indications Order ing Provider Date Insulin Glargine-Peln101Magk/ ML Solution Pen-Inject inject 120 units in Am 45ml Evan Lopez M.D. 05/06/2025 Rosuvastatin Ronsvfb97ib Tablets Take 1 Tablet By Mouth Daily Elsi Redd CNP Lprevduol09ts Tablets Take 1 Tablet By Mouth Daily Elsi Redd CNP Ukpmiqtxdi64ap Tablets Take 1 Tablet By Mouth Twice Daily - Must Take With Meal / Food Elsi Redd CNP Ykrrmjmaxba576lw Tablets Take 1 Tablet By Mouth Daily Elsi Redd CNP Insulin Lispro (1 Unit Dial)100Unit/ML Solution Pen-Inject inject up to 25 units four times daily 45ml Evan Lopez M.D. Wltslzkmekr513tf Tablets 1 by mouth every day 90tabs Unknown Ranolazine GC195hw Tablets ER 12HR Take 1 Tablet By Mouth Twice Daily Elsi Redd CNP Jvdhgjaczr447qd Capsules Unknown Nephro Vitamins0.8mg Tablets Take 1 Tablet By Mouth Every Morning With Breakfast Jayme Keene MD Clopidogrel Ccyeiwrgj35qc Tablets Take 1 Tablet By Mouth Daily Marisa Lovell MD Clonidine0.2mg/24HR Patches Weekly Jayme Keene MD Aspirin 8181mg Tablets DR 1 by mouth every day Unknown History Medications Xgwnws624Caci/ML Solution inject 80 units subcutaneously twice daily 30ml Evan Lopez M.D. 05/06/2025 - 05/06/2025 Humalog Rjphbwn055Rkos/ML Solution Pen-Inject inject 120 units per day [...] 104 Procedures Date Code Description Status 05/06/2025 97467 Glucose Monitoring Interpeta tion And Report Completed 05/07/2024 66398 Glucose Monitoring Interpeta tion And Report Completed [...]
== END 2025-06-12 10:59 | disposition home or self-care (01) ==
LOC: HO.HMCFM 10:01
PROVIDERS: PCP Nurse Practitioner Family; Visit Provider Nurse Practitioner Family
DX: J32.9 Chronic sinusitis, unspecified (principal)